=== PATIENT | female | born 1970 | race Caucasian/White ===

== ENCOUNTER 2019-08-24 09:17 | Outpatient (CLI) | payer OTHER, SELFPAY ==
[2019-08-24 09:58] LABS: Basophils % 0.7 %; Eosinophils # 0.2 10^3/uL (0.0-0.8); Hematocrit 42.9 % (37.0-47.0); Hemoglobin 14.1 g/dL (11.5-15.3); Lymphocytes # 0.9 10^3/uL (0.8-4.8); Lymphocytes % 14.3 %; Mean Corpuscular HGB Conc 32.9 g/dL (30.0-36.0); Mean Corpuscular Hemoglobin 30.4 pg (28.0-34.0); Mean Corpuscular Volume 92.5 fL (81-99); Mean Platelet Volume 9.5 fL (7.4-10.4); Monocytes # 0.7 10^3/uL (0.2-0.9); Monocytes % 11.8 %; Neutrophils # 4.3 10^3/uL (1.8-7.7); Neutrophils % 69.7 %; Nucleated Red Blood Cells % 0 %; Platelet Count 282 10^3/cmm (130-400); Red Blood Count 4.64 10^6/uL (4.1-5.3); Red Cell Distribution Width 12.9 % (12.1-15.1); White Blood Count 6.1 10^3/uL (4.0-10.0)
[2019-08-24 11:06] LABS: Alanine Aminotransferase 33 U/L (0-33); Albumin Level 3.8 g/dL (3.5-5.2); Alkaline Phosphatase 215 IU/L (35-105); Anion Gap 17.9 (5-19); Aspartate Amino Transferase 34 U/L (0-32); Blood Urea Nitrogen 9 mg/dL (6-20); Calcium 10.3 mg/Dl (8.6-10.0); Carbon Dioxide 27 mmol/L (22-29); Chloride 97 mmol/L (98-107); Globulin 3.3 g/dL (1.3-4.6); Glomerular Filtration Rate 132.2 mL/min (90-130); Glucose 101 mg/dL (74-109); Potassium 3.9 mmol/L (3.5-5.1); Sodium 138 mmol/L (136-145); Total Bilirubin 0.3 mg/dL (0.15-1.2); Total Protein 7.1 g/dL (6.6-8.7)
--- NOTE | 2019-08-27 09:04 | ONC FU_ITS ---
Dr. Holt Patient Follow-Up Note Patient: Stefania Teresa Unit #: [id number]: 1970 Dicatated By: Kevon Holt M.D.Date of Visit:Aug 24, 2019 Onc Med Follow-up/Prog Note Chief Complaint: Cholangiocarcinoma. History of Present Illness: This is a 49 year-old woman with hilar cholangiocarcinoma, stage DARRICK (T3, N1, M0). She had presented with obstructive jaundice. Her CT abdomen/pelvis on 05/01/2018 showed intrahepatic ductal dilatation with contracted gallbladder containing stones. ERCP on 05/05/2018 showed evidence of stricture in the upper third of the main bile duct. At that time she underwent sphincterotomy with stenting of the main and pancreatic duct. Brushings were atypical. On a ERCP on 05/21/2018 the brushings were positive for adenocarcinoma. EUS with lymph node biopsy on 06/07/2018 showed extrahepatic disease involving 1 lymph node, which precluded transplant. Her repeat CT abdomen/pelvis on 06/15/2018 showed ill-defined soft tissue mass centered at the origin of the left intrahepatic ductal system with predominantly left intrahepatic biliary ductal dilatation. There was a suggestion of extension of soft tissue into the proximal right intrahepatic ductal system as well as the extreme proximal aspect of the common duct. There was encasement of the left portal vein with at least abutment and narrowing of the proximal right portal vein and distal aspect of the main portal vein. There was likely short segment abutment of the right hepatic artery adjacent to the level of the greatest left portal vein narrowing in the hilum. On 06/28/2018 she underwent extended left hepatectomy with resection of the extrahepatic biliary tree and portal lymphadenectomy, portal vein resection and reconstruction of the right portal venous system, and Ariella-en-Y hepaticojejunostomy to multiple right-sided ducts. At surgery she was noted have a firm mass predominantly in the left side of the liver. By intraoperative ultrasound the tumor appeared resectable, though it was noted to directly abut the portal vein bifurcation. Also noted were several firm retroportal lymph nodes which were resected with the lymphadenectomy. The ultrasound showed no evidence of other metastatic sites within the liver. Pathology showed invasive moderately differentiated adenocarcinoma predominantly involving the left hepatic duct with adjacent hepatic parenchyma, including involvement of the caudate lobe and with extension to the hilum, soft tissue around the bile duct, and common hepatic duct. Tumor was involving the left portal vein. There was extensive lymphovascular and perineural invasion present. The cauterized parenchymal margin at the caudate lobe and the cauterized radial margin around the extrahepatic portion of the bile duct were involved. There was involvement in 1 of 6 lymph nodes. I had seen her initially on 07/21/2018 in regard to postoperative adjuvant chemotherapy. Based on NCCN guidelines I had recommended a course of treatment with gemcitabine/Xeloda. At that time she was still recovering from surgery, and her treatment was delayed pending approval from her surgeon. She returned to start her 1st cycle treatment on 08/24/2018. She completed her day 1 and day 8 gemcitabine infusions with no adverse effects. She was seen for a follow-up visit on 09/14/2018. She had not experienced any significant chemotherapy related toxicity, and she proceeded with her 2nd cycle of treatment, which she also tolerated well. She was then seen for a scheduled visit on 10/05/2018. At that point we had received the results of her next generation sequencing study, which showed evidence of a BRCA1 mutation. With that finding, I opted to change her chemotherapy to a [place]-containing regimen. She returned on 10/21/2018 for her 1st cycle of cisplatin/gemcitabine, administered on a day 1/day 8 schedule every 21 days. She was able to tolerate it with acceptable toxicity, and she continued with cycle 2 on 11/10/2018, with cycle 3 on 12/01/2018, and with cycle 4 on 12/22/2018. On 02/08/2019 she began consolidation radiation concurrently with Xeloda for chemosensitization. She completed radiation on 03/21/2019 to a total dose of 5400 cGy. She was then followed on observation/expectant management. Her medical history is otherwise significant for anxiety/depression, but no other medical illnesses. She has a history of smoking 1 pack of cigarettes daily for 20 years. She quit smoking in June 2018. Family history is significant for a paternal aunt having had breast cancer. INTERIM HISTORY: Surveillance CT of the abdomen/pelvis on 06/01/2019 showed uncomplicated postoperative changes of left hepatectomy and biliary enteric anastomosis. There were 2 foci of subcapsular decreased enhancement in the right lobe of the liver, 1 located anteriorly and the other laterally. These were felt to be consistent with cysts measuring 1 cm and 0.7 cm, and the appearance was unchanged compared to the January 2019 CTRP. She is seen for a scheduled visit. She has been feeling good generally. She has good energy, and her activity back to normal. ECOG score is 0. She has good appetite. She has gained some weight. She has no fever or night sweats. She has occasional hot flashes. She has no shortness of breath, cough, or chest pain. She currently has no GI or complaints. She has no significant joint or bone pain. She has no focal neurologic symptoms. She has had recurrence of depression since she stopped taking citalopram. She also has having some difficulty sleeping. Medications: She is currently not on any prescription medication. Allergies: No Known Allergies. Review of Systems: Constitutional - Her energy is good, and she has normal acitivty. Her appetite is good. She has gained weight. No fever or night sweats. She has occasional hot flashes. ECOG score is 0, ENMT - No sinus congestion/drainage. No mouth sores. No sore throat or difficulty swallowing, Hematologic/Lymphatic - No abnormal bruising or bleeding, Respiratory - No shortness of breath. No cough. No pleuritic pain or hemoptysis, Cardiovascular - No angina pain. No palpitations, Gastrointestinal - No nausea or vomiting. No heartburn or acid reflux. No diarrhea or constipation. No blood in the stool or black stools, Genitourinary (F) - No dysuria or hematuria. No urinary frequency. No urgency or incontinence, Musculoskeletal - No joint or bone pain, Integumentary - No skin complications, Neurologic - No headache or dizziness. No numbness/paresthesias or other focal neurologic symptoms, Psychiatric - She has been having some depression since stopping citalopram. She also is having difficulty sleeping. Vital Signs: Performed on Aug 24, 2019 10:34 Height - 66.00 in Weight - 215.8 lbs (HIGH) BSA - 2.07 sq.m BMI - 34.83 (HIGH) Temperature - 97.8 F (LOW) Pulse - 87 /min Respiration - 24 /min BP - 119/68 mm(hg) O2 Sat - 96 % Pain - 0 Physical Examination: Constitutional - She looks good generally, Eyes - Sclerae nonicteric. Conjunctivae clear, ENMT - No lesions noted in the oral cavity, Hematologic/Lymphatic - No cervical, clavicular, or axillary adenopathy, Respiratory - Lungs are clear with good air movement bilaterally, Cardiovascular - Heart rhythm is regular. There is no murmur, gallop, or rub noted, Abdomen - Soft. Liver and spleen are not enlarged. There is no abdominal mass or ascites noted and there is no inguinal adenopathy, Extremities - No edema, Neurologic - No focal neurologic deficits noted. Lab/Imaging: Test performed on Aug 24, 2019 09:30 Sodium 138 mmol/L Potassium 3.9 mmol/L Chloride 97 mmol/L CO2 27 mmol/L Anion Gap 17.9 BUN 9 mg/dL Creatinine 0.5 mg/dL Cr Clearance (Est) 199.8000 mL/min eGFR 132.2 mL/min Glucose 101 mg/dL Calcium 10.3 mg/Dl Protein, Total 7.1 g/dL Albumin 3.8 g/dL Globulin 3.3 g/dL Bilirubin, Total 0.3 mg/dL ALT (SGPT) 33 U/L AST (SGOT) 34 U/L WBC 6.1 10 3/uL RBC 4.64 10 6/uL HGB 14.1 g/dL HCT 42.9 % MCV 92.5 fL MCH 30.4 pg MCHC 32.9 g/dL RDW 12.9 % Platelet Count 282 10 3/cmm MPV 9.5 fL Neutrophils 4.3 10 3/uL Lymphocytes 0.9 10 3/uL Monocytes 0.7 10 3/uL Eosinophils 0.2 10 3/uL Basophils 0.0 10 3/uL Neutrophil % 69.7 % Lymphocyte % 14.3 % Monocyte % 11.8 % Eosinophil % 3.0 % Basophils % 0.7 % Impression: 1. Patient with hilar cholangiocarcinoma, stage DARRICK (T3, N1, M0). 2. She underwent extended left hepatectomy with resection of the extrahepatic biliary tree and portal lymphadenectomy, portal vein resection and reconstruction of the right portal venous system, and Ariella-en-Y hepaticojejunostomy to multiple right-sided ducts on 06/28/2018. Surgical pathology showed involvement in one lymph node and positive surgical margin. 3. She had situational anxiety/depression. She began postoperative adjuvant chemotherapy with gemcitabine/Xeloda in August 2018. She completed 2 cycles of treatment no adverse effects. We had then received results of her next generation sequencing study, which showed evidence of a BRCA1 mutation. With that finding, I opted to change her chemotherapy to a [place]-containing regimen. She started the 1st cycle on 10/21/2018. It was administered on day 1/day 8 schedule. She did receive Neulasta following her day 8 treatment. She had some increase in fatigue and nausea with the cisplatin-based regimen, and she also had some mild bone pain following the Neulasta injection. Overall, she tolerated it with acceptable toxicity, and she continued with cycle 2 on 11/10/2018, with cycle 3 on 12/01/2018, and with cycle 4 on 12/22/2018. She had significant weakness/fatigue for 2 or 3 days following her day 1 treatments. Side effects otherwise were limited to mild fatigue and mild nausea. Overall, she tolerated the chemotherapy with acceptable toxicity. She then underwent consolidation radiation concurrently with Xeloda for chemosensitization. She completed radiation on 03/21/2019 to a total dose of 5400 cGy. She was significantly fatigued following the radiation, but she otherwise tolerated it well. During followup she has had a persistnently elevated alkaline phosphatase, which I have suspected to be related effects of the radiation. She has otherwise been doing well clinically with no evidence of recurrence of the cholangiocarcinoma. Plan: She will continue on observation/expectant management. She will be scheduled for a follow-up with a surveillance CT in 3 months. Signed By: Kevon Holt M.D. <<Signature on File>>
== END 2019-08-24 09:18 | disposition home or self-care (01) ==
LOC: ONCMED 09:21
PROVIDERS: Family Provider Emergency Medicine; PCP Emergency Medicine; Visit Provider Internal Medicine Medical Oncology
DX: Z08 Encounter for follow-up examination after completed treatment for malignant neoplasm (principal); Z85.05 Personal history of malignant neoplasm of liver; F51.01 Primary insomnia; F41.8 Other specified anxiety disorders; Z92.21 Personal history of antineoplastic chemotherapy; Z92.3 Personal history of irradiation
CPT/HCPCS: 36415; 80053; 85025; G0463

== ENCOUNTER 2019-11-24 10:15 | Outpatient (CLI) | payer OTHER, SELFPAY ==
[2019-11-24 15:01] LABS: Alanine Aminotransferase 40 U/L (0-33); Albumin Level 4.4 g/dL (3.5-5.2); Alkaline Phosphatase 213 IU/L (35-105); Aspartate Amino Transferase 36 U/L (0-32); Blood Urea Nitrogen 8 mg/dL (6-20); Carbon Dioxide 28 mmol/L (22-29); Chloride 96 mmol/L (98-107); Globulin 3.4 g/dL (1.3-4.6); Glomerular Filtration Rate 107.2 mL/min (90-130); Glucose 149 mg/dL (65-115); Osmolality Calculated 285 mOsm/kg (285-295); Sodium 138 mmol/L (136-145); Total Bilirubin 0.3 mg/dL (0.15-1.2); Total Protein 7.8 g/dL (6.6-8.7)
[2019-11-24 15:05] LABS: Basophils # 0.1 10^3/uL (0.0-0.1); Basophils % 0.8 %; Eosinophils # 0.2 10^3/uL (0.0-0.8); Eosinophils % 2.3 %; Hematocrit 45.2 % (37.0-47.0); Hemoglobin 14.5 g/dL (11.5-15.3); Lymphocytes # 1.1 10^3/uL (0.8-4.8); Lymphocytes % 17.1 %; Mean Corpuscular HGB Conc 32.1 g/dL (30.0-36.0); Mean Corpuscular Hemoglobin 29.7 pg (28.0-34.0); Mean Corpuscular Volume 92.6 fL (81-99); Mean Platelet Volume 9.9 fL (7.4-10.4); Monocytes # 0.7 10^3/uL (0.2-0.9); Monocytes % 11.5 %; Neutrophils # 4.4 10^3/uL (1.8-7.7); Nucleated Red Blood Cells % 0 %; Platelet Count 305 10^3/cmm (130-400); Red Blood Count 4.88 10^6/uL (4.1-5.3); Red Cell Distribution Width 13.4 % (12.1-15.1); White Blood Count 6.4 10^3/uL (4.0-10.0)
== END 2019-11-24 10:16 | disposition home or self-care (01) ==
LOC: ONCMED 16:46
PROVIDERS: Family Provider Emergency Medicine; PCP Emergency Medicine; Visit Provider Internal Medicine Medical Oncology
DX: C22.1 Intrahepatic bile duct carcinoma (principal)
CPT/HCPCS: 36415; 80053; 85025

== ENCOUNTER 2020-05-30 12:43 | Outpatient (CLI) | payer OTHER, SELFPAY ==
[2020-05-30 13:52] LABS: Basophils # 0.1 10^3/uL (0.0-0.1); Basophils % 0.9 %; Eosinophils # 0.1 10^3/uL (0.0-0.8); Eosinophils % 1.6 %; Hematocrit 44.4 % (37.0-47.0); Hemoglobin 14.4 g/dL (11.5-15.3); Lymphocytes # 1.6 10^3/uL (0.8-4.8); Lymphocytes % 23.3 %; Mean Corpuscular HGB Conc 32.4 g/dL (30.0-36.0); Mean Corpuscular Hemoglobin 29.2 pg (28.0-34.0); Mean Corpuscular Volume 90.1 fL (81-99); Mean Platelet Volume 9.9 fL (7.4-10.4); Monocytes # 0.5 10^3/uL (0.2-0.9); Monocytes % 7.4 %; Neutrophils # 4.68 10^3/uL (1.8-7.7); Neutrophils % 66.5 %; Nucleated Red Blood Cells % 0 %; Platelet Count 294 10^3/cmm (130-400); Red Blood Count 4.93 10^6/uL (4.1-5.3); Red Cell Distribution Width 13.2 % (12.1-15.1)
[2020-05-30 14:11] LABS: Alanine Aminotransferase 34 U/L (0-33); Albumin Level 4.4 g/dL (3.5-5.2); Alkaline Phosphatase 168 IU/L (35-105); Anion Gap 12.7 (5-19); Aspartate Amino Transferase 27 U/L (0-32); Blood Urea Nitrogen 9 mg/dL (6-20); Calcium 9.5 mg/dL (8.5-10.5); Carbon Dioxide 29 mmol/L (22-29); Chloride 100 mmol/L (98-107); Globulin 3.1 g/dL (1.3-4.6); Glomerular Filtration Rate 89.3 mL/min (90-130); Glucose 120 mg/dL (65-115); Osmolality Calculated 286 mOsm/kg (285-295); Potassium 3.7 mmol/L (3.5-5.1); Sodium 138 mmol/L (136-145); Total Bilirubin 0.2 mg/dL (0.15-1.2); Total Protein 7.5 g/dL (6.6-8.7)
--- NOTE | 2020-05-31 07:55 | ONC FU_ITS ---
Dr. Holt Patient Follow-Up Note Patient: Stefania Teresa Unit #: [id number]: [id number] Dicatated By: Kevon Holt M.D.Date of Visit:May 30, 2020 Onc Med Follow-up/Prog Note Chief Complaint: Cholangiocarcinoma. History of Present Illness: This is a 50 year-old woman with hilar cholangiocarcinoma, stage DARRICK (T3, N1, M0). She had presented with obstructive jaundice. Her CT abdomen/pelvis on 05/01/2018 showed intrahepatic ductal dilatation with contracted gallbladder containing stones. ERCP on 05/05/2018 showed evidence of stricture in the upper third of the main bile duct. At that time she underwent sphincterotomy with stenting of the main and pancreatic duct. Brushings were atypical. On a ERCP on 05/21/2018 the brushings were positive for adenocarcinoma. EUS with lymph node biopsy on 06/07/2018 showed extrahepatic disease involving 1 lymph node, which precluded transplant. Her repeat CT abdomen/pelvis on 06/15/2018 showed ill-defined soft tissue mass centered at the origin of the left intrahepatic ductal system with predominantly left intrahepatic biliary ductal dilatation. There was a suggestion of extension of soft tissue into the proximal right intrahepatic ductal system as well as the extreme proximal aspect of the common duct. There was encasement of the left portal vein with at least abutment and narrowing of the proximal right portal vein and distal aspect of the main portal vein. There was likely short segment abutment of the right hepatic artery adjacent to the level of the greatest left portal vein narrowing in the hilum. On 06/28/2018 she underwent extended left hepatectomy with resection of the extrahepatic biliary tree and portal lymphadenectomy, portal vein resection and reconstruction of the right portal venous system, and Ariella-en-Y hepaticojejunostomy to multiple right-sided ducts. At surgery she was noted have a firm mass predominantly in the left side of the liver. By intraoperative ultrasound the tumor appeared resectable, though it was noted to directly abut the portal vein bifurcation. Also noted were several firm retroportal lymph nodes which were resected with the lymphadenectomy. The ultrasound showed no evidence of other metastatic sites within the liver. Pathology showed invasive moderately differentiated adenocarcinoma predominantly involving the left hepatic duct with adjacent hepatic parenchyma, including involvement of the caudate lobe and with extension to the hilum, soft tissue around the bile duct, and common hepatic duct. Tumor was involving the left portal vein. There was extensive lymphovascular and perineural invasion present. The cauterized parenchymal margin at the caudate lobe and the cauterized radial margin around the extrahepatic portion of the bile duct were involved. There was involvement in 1 of 6 lymph nodes. I had seen her initially on 07/21/2018 in regard to postoperative adjuvant chemotherapy. Based on NCCN guidelines I had recommended a course of treatment with gemcitabine/Xeloda. At that time she was still recovering from surgery, and her treatment was delayed pending approval from her surgeon. She returned to start her 1st cycle treatment on 08/24/2018, and she completed 2 cycles of treatment with no adverse effects. She was then seen for a scheduled visit on 10/05/2018. At that point we had received the results of her next generation sequencing study, which showed evidence of a BRCA1 mutation. With that finding, I opted to change her chemotherapy to a [place]-containing regimen. She returned on 10/21/2018 for her 1st cycle of cisplatin/gemcitabine, administered on a day 1/day 8 schedule every 21 days. She was able to tolerate it with acceptable toxicity, and she continued with cycle 2 on 11/10/2018, with cycle 3 on 12/01/2018, and with cycle 4 on 12/22/2018. On 02/08/2019 she began consolidation radiation concurrently with Xeloda for chemosensitization. She completed radiation on 03/21/2019 to a total dose of 5400 cGy. She was then followed on observation/expectant management. Her medical history is otherwise significant for anxiety/depression, but no other medical illnesses. She has a history of smoking 1 pack of cigarettes daily for 20 years. She quit smoking in June 2018. Family history is significant for a paternal aunt having had breast cancer. INTERIM HISTORY: Surveillance CT of the abdomen/pelvis on 06/01/2019 showed uncomplicated postoperative changes of left hepatectomy and biliary enteric anastomosis. There were 2 foci of subcapsular decreased enhancement in the right lobe of the liver, 1 located anteriorly and the other laterally. These were felt to be consistent with cysts measuring 1 cm and 0.7 cm, and the appearance was unchanged compared to the January 2019 CTRP. She continued observation/expectant management. She is seen for a followup visit. She has good energy and activity tolerance. Her ECOG score is 0. Her appetite is good and her weight is stable. She has no fever, night sweats, oar hot flashes. She has no shortness of breath, cough, or chest pain. She has no GI or complaints. She has no significant joint or bone pain. She does not complain of headache or dizziness. She has no focal neurologic symptoms. Her anxiety/depression has improved. She is no longer having to take medication for it. Medications: She is currently not on any prescription medication. Allergies: No Known Allergies. Review of Systems: Constitutional - She has good energy and activity tolerance. Appetite is good and weight is stable. No fever, night sweats, or hot flashes. ECOG score is 0, ENMT - No sinus congestion/drainage. No mouth sores. No sore throat or difficulty swallowing, Hematologic/Lymphatic - No abnormal bruising or bleeding, Respiratory - No shortness of breath. No cough. No pleuritic pain or hemoptysis, Cardiovascular - No angina pain. No palpitations, Gastrointestinal - No nausea or vomiting. No heartburn or acid reflux. No diarrhea or constipation. No blood in the stool or black stools, Genitourinary (F) - No dysuria or hematuria. No urinary frequency. No urgency or incontinence, Musculoskeletal - No joint or bone pain, Integumentary - No skin rash, Neurologic - No headache or dizziness. No numbness or tingling. No other focal neurologic symptoms, Psychiatric - Her anxiety/depression has improved. She is no longer taking medication for it. No insomnia. Vital Signs: Performed on May 30, 2020 14:33 Height - 66.00 in Weight - 230 lbs (HIGH) BSA - 2.12 sq.m BMI - 37.12 (HIGH) Temperature - 98.6 F Pulse - 87 /min Respiration - 17 /min BP - 107/67 mm(hg) O2 Sat - 97 % Pain - 0 Physical Examination: Constitutional - She looks good generally, Eyes - Sclerae nonicteric. Conjunctivae clear, ENMT - No lesions noted in the oral cavity, Hematologic/Lymphatic - No cervical, clavicular, or axillary adenopathy, Respiratory - Lungs are clear with good air movement bilaterally, Cardiovascular - Heart rhythm is regular. There is no murmur, gallop, or rub noted, Abdomen - Soft. Liver and spleen are not enlarged. There is no abdominal mass or ascites noted and there is no inguinal adenopathy, Extremities - No edema, Neurologic - No focal neurologic deficits noted. Lab/Imaging: Test performed on May 30, 2020 13:12 Sodium 138 mmol/L Potassium 3.7 mmol/L Chloride 100 mmol/L CO2 29 mmol/L Anion Gap 12.7 BUN 9 mg/dL Creatinine 0.7 mg/dL Cr Clearance (Est) 161.87 mL/min eGFR 89.3 mL/min Glucose 120 mg/dL Osmolality - Calculated 286 mOsm/kg Calcium 9.5 mg/dL Protein, Total 7.5 g/dL Albumin 4.4 g/dL Globulin 3.1 g/dL Bilirubin, Total 0.2 mg/dL ALT (SGPT) 34 U/L AST (SGOT) 27 U/L Alkaline Phosphatase 168 IU/L WBC 7.0 10 3/uL RBC 4.93 10 6/uL HGB 14.4 g/dL HCT 44.4 % MCV 90.1 fL MCH 29.2 pg MCHC 32.4 g/dL RDW 13.2 % Platelet Count 294 10 3/cmm MPV 9.9 fL Neutrophils 4.68 10 3/uL Lymphocytes 1.6 10 3/uL Monocytes 0.5 10 3/uL Eosinophils 0.1 10 3/uL Basophils 0.1 10 3/uL Neutrophil % 66.5 % Lymphocyte % 23.3 % Monocyte % 7.4 % Eosinophil % 1.6 % Basophils % 0.9 % NRBC % 0 % Impression: 1. Patient with hilar cholangiocarcinoma, stage DARRICK (T3, N1, M0). By next generation sequencing, her tumor was found to harbor a BRCA1 mutation. 2. She underwent extended left hepatectomy with resection of the extrahepatic biliary tree and portal lymphadenectomy, portal vein resection and reconstruction of the right portal venous system, and Ariella-en-Y hepaticojejunostomy to multiple right-sided ducts on 06/28/2018. Surgical pathology showed involvement in one lymph node and positive surgical margin. 3. She had situational anxiety/depression. 4. In August 2018 she began postoperative adjuvant chemotherapy with gemcitabine/Xeloda in August 2018. She completed 2 cycles of treatment no adverse effects. 5. We had then received results of her next generation sequencing study, which showed the BRCA1 mutation. With that finding, I opted to change her chemotherapy to a cisplatin-gemcitabine regimen. She completed 4 cycles of treatment between 10/21/2018 and 12/22/2018. 6. She then underwent consolidation radiation concurrently with Xeloda for chemosensitization. She completed radiation on 03/21/2019 to a total dose of 5400 cGy. She had become significantly fatigued but time she had completed the chemotherapy and the chemoradiation. During subsequent follow-up, she had persistent elevation of the liver enzymes, which I assumed were treatment related, and she had gradual improvement in her performance status. At this point she is doing very well clinically. She has just slight residual elevation of liver enzymes. Thus far there is no evidence of recurrence of the cholangiocarcinoma, but it has been a year since her last surveillance CT scan. Plan: She remains on observation/expectant management. She will be scheduled for surveillance CT abdomen/pelvis. I will see her again in 6 months. Signed By: Kevon Holt M.D. <<Signature on File>>
== END 2020-05-30 12:44 | disposition home or self-care (01) ==
LOC: ONCMED 12:47
PROVIDERS: PCP Emergency Medicine; Visit Provider Internal Medicine Medical Oncology
DX: Z08 Encounter for follow-up examination after completed treatment for malignant neoplasm (principal); Z85.09 Personal history of malignant neoplasm of other digestive organs; R74.8 Abnormal levels of other serum enzymes; Z90.49 Acquired absence of other specified parts of digestive tract; Z92.3 Personal history of irradiation; Z92.21 Personal history of antineoplastic chemotherapy
CPT/HCPCS: 36415; 80053; 85025; G0463

== ENCOUNTER 2020-06-07 13:11 | Outpatient (CLI) | payer OTHER, SELFPAY ==
--- NOTE | 2020-06-07 13:23 | CT_ITS ---
WS: [id number] CT scan of the abdomen and pelvis with Oral and IV contrast. Additional two-dimensional coronal and s agittal reconstruction was performed. 06/07/2020 Clinical Data: CHOLANGIOCARCINOMA Comparison: None. DLP: 1244.[address] scans at [facility] use at least one of these dose optimization techniques: automat ed exposure control; mA and/or kV adjustment per patient size (includes targeted exams where dose is matched to clinical indication); or iterative reconstruction. Findings: The lower lungs show no nodules, masses or effusions. There is a small hiatal hernia. The left lobe o f the liver has been resected along with the gallbladder. There is air in the hepatic biliary ductal system. There are small cysts in the right lobe of the liver unchanged. No evidence of any metastatic lesions in the liver can be seen. The spleen, adrenal glands and pancreas are normal. The kidneys show equal bilateral contrast excretion with no cyst or masses. No hydronephrosis or magali l calculi are seen. The abdominal aorta is normal in size. No appendicitis or diverticulitis is seen. Oral contrast is in the stomach, small bowel and colon, an d and there is no bowel dilatation. No abscess, adenopathy, ascites, mass, obstruction or free air is seen. The bladder is unremarkable. The uterus is normal No inguinal hernia is seen. Bony metastatic lesions are seen. CT/CT abdomen pelvis w con* [id number] Impression: 1. Negative for metastatic disease to the liver. 2. Post left lobe resection of the liver with biliary enteric anastomosis uncha nged.
[2020-06-07] MEDS: iohexol 300 mg/mL 50 mL Btl PO (14:16)
[2020-06-07] MEDS: iohexol 300 mg/mL 100 mL Btl IV (15:37)
== END 2020-06-07 13:12 | disposition home or self-care (01) ==
LOC: RADWPI 13:15
PROVIDERS: PCP Emergency Medicine; Visit Provider Internal Medicine Medical Oncology
DX: C22.1 Intrahepatic bile duct carcinoma (principal); K63.89 Other specified diseases of intestine
CPT/HCPCS: 74177; Q9967

== ENCOUNTER 2020-11-29 12:13 | Outpatient (CLI) | payer OTHER, SELFPAY ==
[2020-11-29 13:09] LABS: Basophils # 0.1 10^3/uL (0.0-0.1); Basophils % 0.8 %; Eosinophils # 0.1 10^3/uL (0.0-0.8); Eosinophils % 1.1 %; Hematocrit 44.4 % (37.0-47.0); Hemoglobin 14.5 g/dL (11.5-15.3); Lymphocytes # 1.8 10^3/uL (0.8-4.8); Lymphocytes % 18.6 %; Mean Corpuscular HGB Conc 32.7 g/dL (30.0-36.0); Mean Corpuscular Hemoglobin 29.1 pg (28.0-34.0); Mean Platelet Volume 9.6 fL (7.4-10.4); Monocytes # 0.9 10^3/uL (0.2-0.9); Monocytes % 9.5 %; Neutrophils # 6.82 10^3/uL (1.8-7.7); Neutrophils % 69.6 %; Nucleated Red Blood Cells % 0 %; Platelet Count 306 10^3/cmm (130-400); Red Blood Count 4.99 10^6/uL (4.1-5.3); Red Cell Distribution Width 13.2 % (12.1-15.1); White Blood Count 9.8 10^3/uL (4.0-10.0)
[2020-11-29 13:35] LABS: Alanine Aminotransferase 18 U/L (0-33); Albumin Level 4.1 g/dL (3.5-5.2); Alkaline Phosphatase 142 IU/L (35-105); Anion Gap 14.1 (5-19); Aspartate Amino Transferase 21 U/L (0-32); Blood Urea Nitrogen 10 mg/dL (6-20); Calcium 9.1 mg/dL (8.5-10.5); Carbon Dioxide 26 mmol/L (22-29); Chloride 97 mmol/L (98-107); Globulin 3.1 g/dL (1.3-4.6); Glomerular Filtration Rate 89.3 mL/min (90-130); Glucose 93 mg/dL (65-115); Osmolality Calculated 275 mOsm/kg (285-295); Potassium 4.1 mmol/L (3.5-5.1); Sodium 133 mmol/L (136-145); Total Bilirubin 0.3 mg/dL (0.15-1.2); Total Protein 7.2 g/dL (6.6-8.7)
[2020-11-29 15:27] LABS: Add Urine Microscopic? NO; Charge for UA Resulting for Rev
[2020-11-29 15:57] LABS: Bilirubin Urine Neg (Negative); Blood Urine Neg (Negative); Glucose Urine UA Norm (Normal); Ketones Urine Negative (Negative); Leukocyte Esterase Urine Negative (Negative); Nitrate Urine Negative (Negative); Protein Urine Neg (Negative); Urine Appearance Clear (CLEAR); Urine Color Straw (Yellow); Urobilinogen Urine Norm (Negative); pH Urine 5 (5-7)
[2020-11-30 12:24] LABS: Thyroid Stimulating Hormone 1.54 uIU/mL (0.27-4.20)
--- NOTE | 2020-11-30 17:46 | ONC FU_ITS ---
Dr. Holt Patient Follow-Up Note Patient: Stefania Teresa Unit #: [id number]: 1970 Dicatated By: Kevon Holt M.D.Date of Visit:Nov 29, 2020 Onc Med Follow-up/Prog Note Chief Complaint: Cholangiocarcinoma. History of Present Illness: This is a 50 year-old woman with hilar cholangiocarcinoma, stage DARRICK (T3, N1, M0). She had presented with obstructive jaundice. Her CT abdomen/pelvis on 05/01/2018 showed intrahepatic ductal dilatation with contracted gallbladder containing stones. ERCP on 05/05/2018 showed evidence of stricture in the upper third of the main bile duct. At that time she underwent sphincterotomy with stenting of the main and pancreatic duct. Brushings were atypical. On a ERCP on 05/21/2018 the brushings were positive for adenocarcinoma. EUS with lymph node biopsy on 06/07/2018 showed extrahepatic disease involving 1 lymph node, which precluded transplant. Her repeat CT abdomen/pelvis on 06/15/2018 showed ill-defined soft tissue mass centered at the origin of the left intrahepatic ductal system with predominantly left intrahepatic biliary ductal dilatation. There was a suggestion of extension of soft tissue into the proximal right intrahepatic ductal system as well as the extreme proximal aspect of the common duct. There was encasement of the left portal vein with at least abutment and narrowing of the proximal right portal vein and distal aspect of the main portal vein. There was likely short segment abutment of the right hepatic artery adjacent to the level of the greatest left portal vein narrowing in the hilum. On 06/28/2018 she underwent extended left hepatectomy with resection of the extrahepatic biliary tree and portal lymphadenectomy, portal vein resection and reconstruction of the right portal venous system, and Ariella-en-Y hepaticojejunostomy to multiple right-sided ducts. At surgery she was noted have a firm mass predominantly in the left side of the liver. By intraoperative ultrasound the tumor appeared resectable, though it was noted to directly abut the portal vein bifurcation. Also noted were several firm retroportal lymph nodes which were resected with the lymphadenectomy. The ultrasound showed no evidence of other metastatic sites within the liver. Pathology showed invasive moderately differentiated adenocarcinoma predominantly involving the left hepatic duct with adjacent hepatic parenchyma, including involvement of the caudate lobe and with extension to the hilum, soft tissue around the bile duct, and common hepatic duct. Tumor was involving the left portal vein. There was extensive lymphovascular and perineural invasion present. The cauterized parenchymal margin at the caudate lobe and the cauterized radial margin around the extrahepatic portion of the bile duct were involved. There was involvement in 1 of 6 lymph nodes. I had seen her initially on 07/21/2018 in regard to postoperative adjuvant chemotherapy. Based on NCCN guidelines I had recommended a course of treatment with gemcitabine/Xeloda. At that time she was still recovering from surgery, and her treatment was delayed pending approval from her surgeon. She returned to start her 1st cycle treatment on 08/24/2018, and she completed 2 cycles of treatment with no adverse effects. She was then seen for a scheduled visit on 10/05/2018. At that point we had received the results of her next generation sequencing study, which showed evidence of a BRCA1 mutation. With that finding, I opted to change her chemotherapy to a alutiiq-containing regimen. She returned on 10/21/2018 for her 1st cycle of cisplatin/gemcitabine, administered on a day 1/day 8 schedule every 21 days. She was able to tolerate it with acceptable toxicity, and she continued with cycle 2 on 11/10/2018, with cycle 3 on 12/01/2018, and with cycle 4 on 12/22/2018. On 02/08/2019 she began consolidation radiation concurrently with Xeloda for chemosensitization. She completed radiation on 03/21/2019 to a total dose of 5400 cGy. She was then followed on observation/expectant management. Her medical history is otherwise significant for anxiety/depression, but no other medical illnesses. She has a history of smoking 1 pack of cigarettes daily for 20 years. She quit smoking in June 2018. Family history is significant for a paternal aunt having had breast cancer. INTERIM HISTORY: CT of the abdomen/pelvis on 06/01/2019 showed uncomplicated postoperative changes of left hepatectomy and biliary enteric anastomosis. There were 2 foci of subcapsular decreased enhancement in the right lobe of the liver, 1 located anteriorly and the other laterally. These were felt to be consistent with cysts measuring 1 cm and 0.7 cm, and the appearance was unchanged compared to the January [address] of the abdomen/pelvis on 06/07/2020 showed postoperative changes of left hepatic lobectomy. Small cyst in the right lobe of the liver appeared unchanged. Overall there was no evidence of recurrent or metastatic disease. She continued expectant management. She is seen for a followup visit. She has been feeling pretty good generally. Her main complaint is that she has been having pain, swelling, and stiffness in both hands. Tends to bother her especially at night, but also with activity. She also has some joint pain in the knees and ankles, though not as much. Recently she is also had some discomfort in the lower abdomen and some associated tenderness, mainly when she is lying on her stomach. She still has good energy and activity tolerance. ECOG score is 0. She has good appetite. She has not had fever. She does have hot flashes/sweating off and on. She has no shortness of breath, cough, or chest pain. She has no GI/ complaints other than some urinary frequency. She does not complain of headache or dizziness. She has no numbness/paresthesia or other neuropathy symptoms. Medications: She is currently not on any prescription medication. Allergies: No Known Allergies. Vital Signs: Performed on Nov 29, 2020 14:53 Height - 66.00 in Weight - 226.8 lbs (LOW) BSA - 2.11 sq.m BMI - 36.61 (HIGH) Temperature - 98.7 F Pulse - 99 /min Respiration - 18 /min BP - 116/85 mm(hg) O2 Sat - 97 % Pain - 0 Fatigue - 1 Physical Examination: Constitutional - She looks good generally, Eyes - Sclerae nonicteric. Conjunctivae clear, ENMT - No lesions noted in the oral cavity, Hematologic/Lymphatic - No cervical, clavicular, or axillary adenopathy, Respiratory - Lungs are clear with good air movement bilaterally, Cardiovascular - Heart rhythm is regular. There is no murmur, gallop, or rub noted, Abdomen - Soft. Liver and spleen are not enlarged. There is no abdominal mass or ascites noted and there is no inguinal adenopathy, Extremities - No edema, Neurologic - No focal neurologic deficits noted. Lab/Imaging: Test performed on Nov 29, 2020 12:55 TSH 1.54 uIU/mL Test performed on Nov 29, 2020 12:35 Sodium 133 mmol/L Potassium 4.1 mmol/L Chloride 97 mmol/L CO2 26 mmol/L Anion Gap 14.1 BUN 10 mg/dL Creatinine 0.7 mg/dL Cr Clearance (Est) 159.62 mL/min eGFR 89.3 mL/min Glucose 93 mg/dL Osmolality - Calculated 275 mOsm/kg Calcium 9.1 mg/dL Protein, Total 7.2 g/dL Albumin 4.1 g/dL Globulin 3.1 g/dL Bilirubin, Total 0.3 mg/dL ALT (SGPT) 18 U/L AST (SGOT) 21 U/L Alkaline Phosphatase 142 IU/L WBC 9.8 10 3/uL RBC 4.99 10 6/uL HGB 14.5 g/dL HCT 44.4 % MCV 89.0 fL MCH 29.1 pg MCHC 32.7 g/dL RDW 13.2 % Platelet Count 306 10 3/cmm MPV 9.6 fL Neutrophils 6.82 10 3/uL Lymphocytes 1.8 10 3/uL Monocytes 0.9 10 3/uL Eosinophils 0.1 10 3/uL Basophils 0.1 10 3/uL Neutrophil % 69.6 % Lymphocyte % 18.6 % Monocyte % 9.5 % Eosinophil % 1.1 % Basophils % 0.8 % NRBC % 0 % Problem List: 1. Patient with hilar cholangiocarcinoma, stage DARRICK (T3, N1, M0). By next generation sequencing, her tumor was found to harbor a BRCA1 mutation. She underwent extended left hepatectomy with resection of the extrahepatic biliary tree and portal lymphadenectomy, portal vein resection and reconstruction of the right portal venous system, and Ariella-en-Y hepaticojejunostomy to multiple right-sided ducts on 06/28/2018. Surgical pathology showed involvement in one lymph node and positive surgical margin. 2. She has anxiety/depression, currently not requiring medication. Problems Addressed with this Encounter and Plan: 1. Patient with hilar cholangiocarcinoma, stage DARRICK (T3, N1, M0). By next generation sequencing, her tumor was found to harbor a BRCA1 mutation. She underwent extended left hepatectomy with resection of the extrahepatic biliary tree and portal lymphadenectomy, portal vein resection and reconstruction of the right portal venous system, and Ariella-en-Y hepaticojejunostomy to multiple right-sided ducts on 06/28/2018. Surgical pathology showed involvement in one lymph node and positive surgical margin. In August 2018 she began postoperative adjuvant chemotherapy with gemcitabine/Xeloda in August 2018. She completed 2 cycles of treatment no adverse effects. We had then received results of her next generation sequencing study, which showed the BRCA1 mutation. With that finding, I opted to change her chemotherapy to a cisplatin-gemcitabine regimen. She completed 4 cycles of treatment between 10/21/2018 and 12/22/2018. She then underwent consolidation radiation concurrently with Xeloda for chemosensitization. She completed radiation on 03/21/2019 to a total dose of 5400 cGy. She was then followed expectantly. During initial follow-up she has developed a significant increase in her liver enzymes. This was felt to be most likely radiation related and during subsequent follow-up and has continued to gradually improve. Overall, she has been doing well clinically with no evidence of recurrence of the cholangiocarcinoma. Recently she has developed some mild discomfort in the lower abdominal area. The cause/clinical significance is uncertain. I will tentatively plan a follow-up visit with surveillance CT scans in 6 months, but she will have evaluation sooner if her symptoms worsen. 2. She has developed some joint pain with stiffness and swelling in both hands. As a precaution I will check a sed rate, but this appears to be most likely due to osteoarthritis. She will be given a prescription for meloxicam 15 mg daily. I also recommended that she try glucosamine/chondroitin sulfate. Signed By: Kevon Holt M.D. <<Signature on File>>
== END 2020-11-29 12:14 | disposition home or self-care (01) ==
LOC: ONCMED 12:17
PROVIDERS: PCP Emergency Medicine; Visit Provider Internal Medicine Medical Oncology
DX: C22.1 Intrahepatic bile duct carcinoma (principal); C77.1 Secondary and unspecified malignant neoplasm of intrathoracic lymph nodes; F41.9 Anxiety disorder, unspecified; F32.9 Major depressive disorder, single episode, unspecified; Z79.899 Other long term (current) drug therapy; Z92.21 Personal history of antineoplastic chemotherapy; Z92.3 Personal history of irradiation
CPT/HCPCS: 36415; 80053; 81003; 84443; 85025; 99214

== ENCOUNTER 2021-06-06 11:57 | Outpatient (CLI) | payer OTHER, SELFPAY ==
[2021-06-06 13:08] LABS: Basophils # 0.1 10^3/uL (0.0-0.1); Basophils % 0.6 %; Eosinophils # 0.2 10^3/uL (0.0-0.8); Eosinophils % 1.5 %; Hematocrit 35.1 % (37.0-47.0); Hemoglobin 10.6 g/dL (11.5-15.3); Lymphocytes # 1.1 10^3/uL (0.8-4.8); Lymphocytes % 8.3 %; Mean Corpuscular HGB Conc 30.2 g/dL (30.0-36.0); Mean Corpuscular Hemoglobin 26.6 pg (28.0-34.0); Mean Platelet Volume 9.4 fL (7.4-10.4); Monocytes # 1.1 10^3/uL (0.2-0.9); Neutrophils # 9.99 10^3/uL (1.8-7.7); Neutrophils % 78.7 %; Nucleated Red Blood Cells % 0 %; Platelet Count 696 10^3/cmm (130-400); Red Blood Count 3.99 10^6/uL (4.1-5.3); Red Cell Distribution Width 15.3 % (12.1-15.1); White Blood Count 12.7 10^3/uL (4.0-10.0)
[2021-06-06 13:31] LABS: Alanine Aminotransferase 14 U/L (0-33); Albumin Level 2.8 g/dL (3.5-5.2); Alkaline Phosphatase 118 IU/L (35-105); Anion Gap 15.6 (5-19); Aspartate Amino Transferase 21 U/L (0-32); Blood Urea Nitrogen 9 mg/dL (6-20); Calcium 9.2 mg/dL (8.5-10.5); Carbon Dioxide 27 mmol/L (22-29); Chloride 96 mmol/L (98-107); Globulin 4.2 g/dL (1.3-4.6); Glomerular Filtration Rate 236.4 mL/min (90-130); Glucose 160 mg/dL (65-115); Osmolality Calculated 280 mOsm/kg (285-295); Potassium 4.6 mmol/L (3.5-5.1); Sodium 134 mmol/L (136-145); Total Bilirubin 0.3 mg/dL (0.15-1.2)
--- NOTE | 2021-06-06 18:23 | ONC FU_ITS ---
Dr. Holt Patient Follow-Up Note Patient: Stefania Teresa Unit #: [id number]: 1970 Dicatated By: Kevon Holt M.D.Date of Visit:Jun 06, 2021 Onc Med Follow-up/Prog Note Chief Complaint: Cholangiocarcinoma. History of Present Illness: This is a 51 year-old woman with hilar cholangiocarcinoma, stage DARRICK (T3, N1, M0). She had presented with obstructive jaundice. Her CT abdomen/pelvis on 05/01/2018 showed intrahepatic ductal dilatation with contracted gallbladder containing stones. ERCP on 05/05/2018 showed evidence of stricture in the upper third of the main bile duct. At that time she underwent sphincterotomy with stenting of the main and pancreatic duct. Brushings were atypical. On a ERCP on 05/21/2018 the brushings were positive for adenocarcinoma. EUS with lymph node biopsy on 06/07/2018 showed extrahepatic disease involving 1 lymph node, which precluded transplant. Her repeat CT abdomen/pelvis on 06/15/2018 showed ill-defined soft tissue mass centered at the origin of the left intrahepatic ductal system with predominantly left intrahepatic biliary ductal dilatation. There was a suggestion of extension of soft tissue into the proximal right intrahepatic ductal system as well as the extreme proximal aspect of the common duct. There was encasement of the left portal vein with at least abutment and narrowing of the proximal right portal vein and distal aspect of the main portal vein. There was likely short segment abutment of the right hepatic artery adjacent to the level of the greatest left portal vein narrowing in the hilum. On 06/28/2018 she underwent extended left hepatectomy with resection of the extrahepatic biliary tree and portal lymphadenectomy, portal vein resection and reconstruction of the right portal venous system, and Ariella-en-Y hepaticojejunostomy to multiple right-sided ducts. At surgery she was noted have a firm mass predominantly in the left side of the liver. By intraoperative ultrasound the tumor appeared resectable, though it was noted to directly abut the portal vein bifurcation. Also noted were several firm retroportal lymph nodes which were resected with the lymphadenectomy. The ultrasound showed no evidence of other metastatic sites within the liver. Pathology showed invasive moderately differentiated adenocarcinoma predominantly involving the left hepatic duct with adjacent hepatic parenchyma, including involvement of the caudate lobe and with extension to the hilum, soft tissue around the bile duct, and common hepatic duct. Tumor was involving the left portal vein. There was extensive lymphovascular and perineural invasion present. The cauterized parenchymal margin at the caudate lobe and the cauterized radial margin around the extrahepatic portion of the bile duct were involved. There was involvement in 1 of 6 lymph nodes. I had seen her initially on 07/21/2018 in regard to postoperative adjuvant chemotherapy. Based on NCCN guidelines I had recommended a course of treatment with gemcitabine/Xeloda. At that time she was still recovering from surgery, and her treatment was delayed pending approval from her surgeon. She returned to start her 1st cycle treatment on 08/24/2018, and she completed 2 cycles of treatment with no adverse effects. She was then seen for a scheduled visit on 10/05/2018. At that point we had received the results of her next generation sequencing study, which showed evidence of a BRCA1 mutation. With that finding, I opted to change her chemotherapy to a marshall-containing regimen. She returned on 10/21/2018 for her 1st cycle of cisplatin/gemcitabine, administered on a day 1/day 8 schedule every 21 days. She was able to tolerate it with acceptable toxicity, and she continued with cycle 2 on 11/10/2018, with cycle 3 on 12/01/2018, and with cycle 4 on 12/22/2018. On 02/08/2019 she began consolidation radiation concurrently with Xeloda for chemosensitization. She completed radiation on 03/21/2019 to a total dose of 5400 cGy. She was then managed expectantly. During that time, I had requested genetic screening, but it was denied by her insurance carrier. As of her follow-up visit in June 2020 she was doing well clinically. Her surveillance CT of the abdomen/pelvis showed postoperative changes of left hepatic lobectomy. Small cyst in the right lobe of the liver appeared unchanged. Overall there was no evidence of recurrent or metastatic disease. Her medical history is otherwise significant for anxiety/depression, but no other medical illnesses. She has a history of smoking 1 pack of cigarettes daily for 20 years. She quit smoking in June 2018. Family history is significant for a paternal aunt having had breast cancer. INTERIM HISTORY: Last month she was referred to Dr. Perla in [place] after she had been found on CT to have a large pelvic mass. I do not have all of those records available, but on 05/17/2021 she underwent exploratory laparotomy for radical surgical resection of suspected ovarian cancer. The procedure included bilateral salpingo-oophorectomy, total abdominal hysterectomy, partial sigmoid colectomy, omentectomy, appendectomy, and excision of multiple tumor nodules. Grossly she was noted to have a multicystic mass with a large friable area of necrosis on the surface. There was involvement by attachment to multiple loops of small bowel and mesentery and peritoneal surface in the pelvis. Some of the multi cysts were ruptured with removal. Other sites of involvement included the bladder peritoneum, right anterior abdominal wall, surface disease on the sigmoid colon as well as plaque-like nodule in the sigmoid colon which was suspicious for infiltration into the muscularis. There were nodules along the left pericolic gutter, sigmoid colon, right pericolic gutter, sigmoid mesentery, right pelvic peritoneum, and right anterior abdominal wall peritoneum. The omentum also appeared very suspicious. Pathology showed adenocarcinoma involving virtually all of the submitted specimens, including both ovaries, omentum, appendix, sigmoid colon serosa, bladder peritoneum, right pelvic and right abdominal wall peritoneum, anterior abdominal wall, and numerous other nodules. Grossly the right ovary measured 27.5 x 26 x 16 cm and the left ovary measured 10.5 x 9 x 7 cm. By IHC the tumor is of the appendix and ovary were positive for CK7, CK20, and CDX2. They were negative for PAX8 and ER. It was unclear whether this was primary appendiceal carcinoma with ovarian metastases or vice versa. Pathology was sent to Dr. Alex Medina at [facility] for review/consultation, and that report is still pending. She is seen for a follow-up visit. She still has very limited activity following her recent surgery. She still feels very fatigued. Her ECOG score is 3. Her appetite is not good. She has been supplementing with Ensure. She has not had fever. She was having some hot flashes/sweating in the hospital, that has resolved. She has not had sore mouth or throat. She does not complain of cough, and she has not been having shortness of breath or chest pain. She still has some soreness following the surgery, but she is not having nausea or acid reflux symptoms. Her bowels are recovering slowly. She has no complaints. She has no significant joint or bone pain. She does not complain of headache or dizziness. She has no numbness/paresthesia or other focal neurologic symptoms. Medications: traMADol HCl 1 Tablet (of 50 mg) Oral b.i.d. PRN Allergies: No Known Allergies. Vital Signs: Performed on Jun 06, 2021 13:58 Height - 66.00 in Weight - 184.6 lbs (LOW) BSA - 1.93 sq.m BMI - 29.80 Temperature - 97.1 F (LOW) Pulse - 120 /min (HIGH) Respiration - 18 /min BP - 116/80 mm(hg) O2 Sat - 97 % Pain - 2 Fatigue - 8 Physical Examination: Constitutional - She appears generally weak, Eyes - Sclerae nonicteric. Conjunctivae clear, ENMT - No lesions noted in the oral cavity, Hematologic/Lymphatic - No cervical, clavicular, or axillary adenopathy, Respiratory - Lungs are clear with good air movement bilaterally, Cardiovascular - Heart rhythm is regular. There is no murmur, gallop, or rub noted, Abdomen - Mildly distended but soft. The incision has not completely healed, but it looks good. Liver and spleen are not enlarged. There is no abdominal mass or ascites noted and there is no inguinal adenopathy, Extremities - No edema, Neurologic - No focal neurologic deficits noted. Lab/Imaging: Test performed on Jun 06, 2021 12:35 Sodium 134 mmol/L Potassium 4.6 mmol/L Chloride 96 mmol/L CO2 27 mmol/L Anion Gap 15.6 BUN 9 mg/dL Creatinine 0.3 mg/dL Cr Clearance (Est) 299.86 mL/min eGFR 236.4 mL/min Glucose 160 mg/dL Osmolality - Calculated 280 mOsm/kg Calcium 9.2 mg/dL Protein, Total 7.0 g/dL Albumin 2.8 g/dL Globulin 4.2 g/dL Bilirubin, Total 0.3 mg/dL ALT (SGPT) 14 U/L AST (SGOT) 21 U/L Alkaline Phosphatase 118 IU/L WBC 12.7 10 3/uL RBC 3.99 10 6/uL HGB 10.6 g/dL HCT 35.1 % MCV 88.0 fl MCH 26.6 pg MCHC 30.2 g/dL RDW 15.3 % Platelet Count 696 10 3/cmm MPV 9.4 fL Neutrophils 9.99 10 3/uL Lymphocytes 1.1 10 3/uL Monocytes 1.1 10 3/uL Eosinophils 0.2 10 3/uL Basophils 0.1 10 3/uL Neutrophil % 78.7 % Lymphocyte % 8.3 % Monocyte % 9.0 % Eosinophil % 1.5 % Basophils % 0.6 % NRBC % 0 % Problem List: 1. Locally advanced adenocarcinoma involving abdomen/pelvis with involvement of both ovaries and appendix. It is not yet determined whether this is primary appendiceal cancer or primary ovarian cancer. 2. Hilar cholangiocarcinoma, stage DARRICK (T3, N1, M0). By next generation sequencing, her tumor was found to harbor a BRCA1 mutation. 3. Anxiety/depression. Problems Addressed with this Encounter and Plan: 1. Patient with locally advanced adenocarcinoma involving abdomen/pelvis. She underwent laparotomy/radical surgical resection on 05/17/2021. There are multiple sites of involvement within the abdomen and pelvis including both ovaries and appendix. It has not yet been determined where this is primary appendiceal versus primary ovarian carcinoma, but further pathologic review is pending. She may require adjuvant therapy depending on the ultimate determination of the primary malignancy. In any case, I think it will be appropriate to obtain next generation sequencing, and I will submit that request to pathology. I will be conferring with Dr. Baca regarding her further management when the final pathology results are available. 2. She has history of hilar cholangiocarcinoma, stage DARRICK (T3, N1, M0). She underwent extended left hepatectomy with resection of the extrahepatic biliary tree and portal lymphadenectomy, portal vein resection and reconstruction of the right portal venous system, and Ariella-en-Y hepaticojejunostomy to multiple right-sided ducts on 06/28/2018. Surgical pathology showed involvement in one lymph node and positive surgical margin. By next generation sequencing, her tumor was found to harbor a BRCA1 mutation. In August 2018 she began postoperative adjuvant chemotherapy with gemcitabine/Xeloda in August 2018. She completed 2 cycles of treatment no adverse effects. We had then received results of her next generation sequencing study, which showed the BRCA1 mutation. With that finding, I opted to change her chemotherapy to a cisplatin-gemcitabine regimen. She completed 4 cycles of treatment between 10/21/2018 and 12/22/2018. She then underwent consolidation radiation concurrently with Xeloda for chemosensitization. She completed radiation on 03/21/2019 to a total dose of 5400 cGy. She was then followed expectantly. Thus far there does not appear to been any recurrence of the cholangiocarcinoma. Signed By: Kevon Holt M.D. <<Signature on File>>
== END 2021-06-06 11:58 | disposition home or self-care (01) ==
PROVIDERS: PCP Emergency Medicine; Visit Provider Internal Medicine Medical Oncology
DX: Z08 Encounter for follow-up examination after completed treatment for malignant neoplasm (principal); Z85.43 Personal history of malignant neoplasm of ovary; Z85.89 Personal history of malignant neoplasm of other organs and systems; F41.9 Anxiety disorder, unspecified; F32.9 Major depressive disorder, single episode, unspecified; Z92.21 Personal history of antineoplastic chemotherapy; Z79.899 Other long term (current) drug therapy
CPT/HCPCS: 36415; 80053; 85025; 99215

== ENCOUNTER 2021-08-12 10:14 | Outpatient (CLI) | payer OTHER, SELFPAY ==
--- NOTE | 2021-08-15 09:44 | ONC FU_ITS ---
Dr. Holt Patient Follow-Up Note Patient: Stefania Teresa Unit #: [id number]: 1970 Dicatated By: Kevon Holt M.D.Date of Visit:Aug 12, 2021 Onc Med Follow-up/Prog Note Chief Complaint: Cholangiocarcinoma/appendiceal cancer. 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 She had presented with obstructive jaundice. Her CT abdomen/pelvis on 05/01/2018 showed intrahepatic ductal dilatation with contracted gallbladder containing stones. ERCP on 05/05/2018 showed evidence of stricture in the upper third of the main bile duct. At that time she underwent sphincterotomy with stenting of the main and pancreatic duct. Brushings were atypical. On a ERCP on 05/21/2018 the brushings were positive for adenocarcinoma. EUS with lymph node biopsy on 06/07/2018 showed extrahepatic disease involving 1 lymph node, which precluded transplant. Her repeat CT abdomen/pelvis on 06/15/2018 showed ill-defined soft tissue mass centered at the origin of the left intrahepatic ductal system with predominantly left intrahepatic biliary ductal dilatation. There was a suggestion of extension of soft tissue into the proximal right intrahepatic ductal system as well as the extreme proximal aspect of the common duct. There was encasement of the left portal vein with at least abutment and narrowing of the proximal right portal vein and distal aspect of the main portal vein. There was likely short segment abutment of the right hepatic artery adjacent to the level of the greatest left portal vein narrowing in the hilum. On 06/28/2018 she underwent extended left hepatectomy with resection of the extrahepatic biliary tree and portal lymphadenectomy, portal vein resection and reconstruction of the right portal venous system, and Ariella-en-Y hepaticojejunostomy to multiple right-sided ducts. At surgery she was noted have a firm mass predominantly in the left side of the liver. By intraoperative ultrasound the tumor appeared resectable, though it was noted to directly abut the portal vein bifurcation. Also noted were several firm retroportal lymph nodes which were resected with the lymphadenectomy. The ultrasound showed no evidence of other metastatic sites within the liver. Pathology showed invasive moderately differentiated adenocarcinoma predominantly involving the left hepatic duct with adjacent hepatic parenchyma, including involvement of the caudate lobe and with extension to the hilum, soft tissue around the bile duct, and common hepatic duct. Tumor was involving the left portal vein. There was extensive lymphovascular and perineural invasion present. The cauterized parenchymal margin at the caudate lobe and the cauterized radial margin around the extrahepatic portion of the bile duct were involved. There was involvement in 1 of 6 lymph nodes. I had seen her initially on 07/21/2018 in regard to postoperative adjuvant chemotherapy. Based on NCCN guidelines I had recommended a course of treatment with gemcitabine/Xeloda. At that time she was still recovering from surgery, and her treatment was delayed pending approval from her surgeon. She returned to start her 1st cycle treatment on 08/24/2018, and she completed 2 cycles of treatment with no adverse effects. She was then seen for a scheduled visit on 10/05/2018. At that point we had received the results of her next generation sequencing study, which showed evidence of a BRCA1 mutation. With that finding, I opted to change her chemotherapy to a kwethluk-containing regimen. She returned on 10/21/2018 for her 1st cycle of cisplatin/gemcitabine, administered on a day 1/day 8 schedule every 21 days. She was able to tolerate it with acceptable toxicity, and she continued with cycle 2 on 11/10/2018, with cycle 3 on 12/01/2018, and with cycle 4 on 12/22/2018. On 02/08/2019 she began consolidation radiation concurrently with Xeloda for chemosensitization. She completed radiation on 03/21/2019 to a total dose of 5400 cGy. She was then managed expectantly. During that time, I had requested genetic screening, but it was denied by her insurance carrier. Her surveillance CT of the abdomen/pelvis in June 2020 showed postoperative changes of left hepatic lobectomy. Small cyst in the right lobe of the liver appeared unchanged. Overall there was no evidence of recurrent or metastatic disease. As of her follow-up visit on 11/29/2020 she appeared stable clinically. She was scheduled to have a 6-month interval follow-up with surveillance CT scans. In April 2020 she was referred to Dr. Perla in [place] after she had been found on CT to have a large pelvic mass. On 05/17/2021 she underwent exploratory laparotomy for radical surgical resection of suspected ovarian cancer. The procedure included bilateral salpingo-oophorectomy, total abdominal hysterectomy, partial sigmoid colectomy, omentectomy, appendectomy, and excision of multiple tumor nodules. Grossly she was noted to have a multicystic mass with a large friable area of necrosis on the surface. There was involvement by attachment to multiple loops of small bowel and mesentery and peritoneal surface in the pelvis. Some of the multi cysts were ruptured with removal. Other sites of involvement included the bladder peritoneum, right anterior abdominal wall, surface disease on the sigmoid colon as well as plaque-like nodule in the sigmoid colon which was suspicious for infiltration into the muscularis. There were nodules along the left pericolic gutter, sigmoid colon, right pericolic gutter, sigmoid mesentery, right pelvic peritoneum, and right anterior abdominal wall peritoneum. The omentum also appeared very suspicious. Pathology showed mucinous adenocarcinoma involving virtually all of the submitted specimens, including both ovaries, omentum, appendix, sigmoid colon serosa, bladder peritoneum, right pelvic and right abdominal wall peritoneum, anterior abdominal wall, and numerous other nodules. Grossly the right ovary measured 27.5 x 26 x 16 cm and the left ovary measured 10.5 x 9 x 7 cm. By IHC the tumor cells from the appendix and ovary were positive for CK7, CK20, and CDX2. They were negative for PAX8 and ER. It was unclear whether this was primary appendiceal carcinoma with ovarian metastases or vice versa. On further review of the pathology by Dr. Alex Medina at [facility], it was determined to be an appendiceal primary malignancy with bilateral ovarian metastases. On next generation sequencing, the tumor was noted to harbor the BRCA1 mutation. There were no other actionable mutations identified. In particular, KRAS, NRAS, and BRAF mutations were not detected. The tumor mutational burden was noted to be low at 7 mut/Mb and the PD-L1 expression was negative (0%). Genomic loss of heterozygosity was noted to be high at 21%. Her medical history is otherwise significant for anxiety/depression, but no other medical illnesses. She has a history of smoking 1 pack of cigarettes daily for 20 years. She quit smoking in June 2018. Family history is significant for a paternal aunt having had breast cancer. INTERIM HISTORY: She is seen for a follow-up visit. She has been feeling much better generally with additional time to recover from the surgery. She has improved energy/activity tolerance and there appetite also is getting better. Her weight is still down 45 pounds compared to November 2020. She does not have fever, night sweats, or hot flashes. She has not had sore mouth or throat. She does not complain of cough, and she has not been having shortness of breath or chest pain. She has occasional postprandial nausea. She has no other GI or complaints. She has some joint pain, mainly in her hands. She does not complain of headache. She has occasional dysequilibrium. She has no numbness/paresthesia or other focal neurologic symptoms. Medications: Allergies: No Known Allergies. Vital Signs: Performed on Aug 12, 2021 11:50 Height - 66.00 in Weight - 179.4 lbs (LOW) BSA - 1.91 sq.m BMI - 28.96 Temperature - 98.7 F Pulse - 107 /min (HIGH) Respiration - 18 /min BP - 126/81 mm(hg) O2 Sat - 98 % Pain - 0 Fatigue - 0 Physical Examination: Constitutional - She looks much better generally, Eyes - Sclerae nonicteric. Conjunctivae clear, ENMT - No lesions noted in the oral cavity, Hematologic/Lymphatic - No cervical, clavicular, or axillary adenopathy, Respiratory - Lungs are clear with good air movement bilaterally, Cardiovascular - Heart rhythm is regular with a mild tachycardia. There is no murmur, gallop, or rub noted, Abdomen - Soft. Liver and spleen are not enlarged. There is no abdominal mass or ascites noted and there is no inguinal adenopathy, Extremities - No edema, Neurologic - No focal neurologic deficits noted. Lab/Imaging: Test performed on Jun 06, 2021 12:35 Sodium 134 mmol/L Potassium 4.6 mmol/L Chloride 96 mmol/L CO2 27 mmol/L Anion Gap 15.6 BUN 9 mg/dL Creatinine 0.3 mg/dL Cr Clearance (Est) 299.86 mL/min eGFR 236.4 mL/min Glucose 160 mg/dL Osmolality - Calculated 280 mOsm/kg Calcium 9.2 mg/dL Protein, Total 7.0 g/dL Albumin 2.8 g/dL Globulin 4.2 g/dL Bilirubin, Total 0.3 mg/dL ALT (SGPT) 14 U/L AST (SGOT) 21 U/L Alkaline Phosphatase 118 IU/L WBC 12.7 10 3/uL RBC 3.99 10 6/uL HGB 10.6 g/dL HCT 35.1 % MCV 88.0 fl MCH 26.6 pg MCHC 30.2 g/dL RDW 15.3 % Platelet Count 696 10 3/cmm MPV 9.4 fL Neutrophils 9.99 10 3/uL Lymphocytes 1.1 10 3/uL Monocytes 1.1 10 3/uL Eosinophils 0.2 10 3/uL Basophils 0.1 10 3/uL Neutrophil % 78.7 % Lymphocyte % 8.3 % Monocyte % 9.0 % Eosinophil % 1.5 % Basophils % 0.6 % NRBC % 0 % Problem List: 1. Locally advanced adenocarcinoma involving abdomen/pelvis with involvement of both ovaries and appendix. It is not yet determined whether this is primary appendiceal cancer or primary ovarian cancer. 2. Hilar cholangiocarcinoma, stage DARRICK (T3, N1, M0). By next generation sequencing, her tumor was found to harbor a BRCA1 mutation. 3. Anxiety/depression. Problems Addressed with this Encounter and Plan: 1. Patient with locally advanced adenocarcinoma involving abdomen/pelvis. She underwent laparotomy/radical surgical resection on 05/17/2021. There were multiple sites of involvement within the abdomen and pelvis including both ovaries and appendix. Pathology showed mucinous adenocarcinoma with tumor cells positive for CK7, CK20, and CDX2 and negative for PAX8 and ER. Initially it was uncertain whether it was a primary appendiceal versus primary ovarian carcinoma. On further review of the pathology by Dr. Alex Medina at [facility], it was determined to be an appendiceal primary malignancy with bilateral ovarian metastases. On next generation sequencing, the tumor was noted to harbor the BRCA1 mutation. There were no other actionable mutations identified. In particular, KRAS, NRAS, and BRAF mutations were not detected. The tumor mutational burden was noted to be low at 7 mut/Mb and the PD-L1 expression was negative (0%). Genomic loss of heterozygosity was noted to be high at 21%. After further discussion with Dr. Baca, patient was recommended to have evaluation with a colorectal surgeon at [facility] to discuss further management, in particular the possibility of HIPEC. Given her the difficulties she experienced with the surgery and relatively slow recovery, she has opted not to pursue treatment that would require additional surgery. As it has been 3-month interval since the procedure, she will be scheduled now for surveillance CT scans. In the meantime, I am again requesting genetic screening for BRCA, as it would potentially have implications for her further treatment and for her family. In particular, if she is not going to pursue further surgery/HIPEC, I may want to look into the possibility of adjuvant therapy with a PARP inhibitor. 2. She has history of hilar cholangiocarcinoma, stage DARRICK (T3, N1, M0). She underwent extended left hepatectomy with resection of the extrahepatic biliary tree and portal lymphadenectomy, portal vein resection and reconstruction of the right portal venous system, and Ariella-en-Y hepaticojejunostomy to multiple right-sided ducts on 06/28/2018. Surgical pathology showed involvement in one lymph node and positive surgical margin. By next generation sequencing, her tumor was found to harbor a BRCA1 mutation. In August 2018 she began postoperative adjuvant chemotherapy with gemcitabine/Xeloda in August 2018. She completed 2 cycles of treatment no adverse effects. We had then received results of her next generation sequencing study, which showed the BRCA1 mutation. With that finding, I opted to change her chemotherapy to a cisplatin-gemcitabine regimen. She completed 4 cycles of treatment between 10/21/2018 and 12/22/2018. She then underwent consolidation radiation concurrently with Xeloda for chemosensitization. She completed radiation on 03/21/2019 to a total dose of 5400 cGy. She was then followed expectantly. Thus far there does not appear to have been any recurrence of the cholangiocarcinoma. Signed By: Kevon Holt M.D. <<Signature on File>>
== END 2021-08-12 10:15 | disposition home or self-care (01) ==
PROVIDERS: PCP Emergency Medicine; Visit Provider Internal Medicine Medical Oncology
DX: Z08 Encounter for follow-up examination after completed treatment for malignant neoplasm (principal); C76.3 Malignant neoplasm of pelvis; C56.9 Malignant neoplasm of unspecified ovary; C24.0 Malignant neoplasm of extrahepatic bile duct; F41.9 Anxiety disorder, unspecified
CPT/HCPCS: 36415; 99214

== ENCOUNTER 2021-08-19 11:38 | Outpatient (CLI) | payer OTHER, SELFPAY ==
--- NOTE | 2021-08-19 11:46 | CT_ITS ---
WS: [id number] CT CHEST, ABDOMEN, AND PELVIS TECHNIQUE: Contrast-enhanced CT of the chest, abdomen, and pelvis with coronal and sagittal reformatt ed images. CLINICAL INFORMATION: INTRAHEPATIC BILE DUCT CARCINOMA, SECONDARY MALIGNANT NEOPLA COMPARISON: CT May 14, 2021 And June 07, 2020 DLP: [address]9.[address] scans at [facility] use at least one of these dose optimization techniques: automated e xposure control; mA and/or kV adjustment per patient size (includes targeted exams where dose is matc hed to clinical indication); or iterative reconstruction. CT CHEST: Lungs are well aerated. No acute pulmonary infiltrates. Slight atelectasis in the lung bases. No susp icious pulmonary parenchymal abnormalities. Right lower pole thyroid nodule measuring 8 mm. Normal ca liber thoracic aorta. Proximal main pulmonary arteries are normal. No mediastinal or hilar lymphadeno john. No axillary lymphadenopathy. Normal visualized thoracic spine. CT ABDOMEN AND PELVIS: Prior postoperative changes resection of the left hepatic lobe. Prior cholecystectomy. Bilioenteric a nastomosis. Since the prior CT May 14, 2021 Interval resection of the previously described large low-attenuation cystic/mucinous abdominal mass r eportedly of appendiceal origin. Normal spleen. Normal GE junction. Increasing peripherally enhancing lymph nodes or soft tissue metastatic nodules in the upper abdomen increased in size since May 032019 Measuring 1.5 x 1.0 CM. Adrenal glands are normal. Normal renal parenchymal enhancement. No hydronephrosis. Mild fatty atroph y of the pancreas. Normal caliber abdominal aorta. Aortic calcification. Partial sigmoid resection wi th anastomosis. Low-attenuation peripherally enhancing soft tissue or fluid in the right lower quadrant likely repres ents residual or recurrent cystic/mucinous tumor measuring 2.7 x 2.1 cm with adjacent smaller collect ion measuring 1.9 x 1.5 cm. This is in the right lower quadrant about the cecum in the area of the ap pendix. Normal lumbar spine. Several small peripherally enhancing nodules along the superior margin of the adominal incision may may represent neoplasm versus postoperative fluid. Recommend interval follow-up. CT/CT chest abd pel w con* IMPRESSION: 1. No evidence of metastatic disease in the chest. 2. Interval postoperative changes resection of the large cystic/mucinous abdom inal neoplasm reportedly of appendiceal origin. 3. Peripherally enhancing material in the right lower quadrant about the cecum in the area of the appendix suspicious for residual or recurrent disease descr ibed above. These 2 areas measure 2.7 x 2.1 cm with adjacent smaller collection measuring 1.9 x 1.5 cm. 4. Peripherally enhancing low-attenuation nodules in the upper abdomen suspici ous for lymphadenopathy or soft tissue mucinous implants have increased in size since 2020 today measuring 1.0 x 1.5 cm compared to 0.9 x 1.3 cm previo us 5. Several additional small peripherally enhancing nodules along the superior margin of the abdominal incision may may represent neoplasm versus postoperativ e fluid. Recommend interval follow-up.
[2021-08-19] MEDS: iohexol 300 mg/mL 50 mL Btl PO (15:46)
[2021-08-19] MEDS: iohexol 300 mg/mL 100 mL Btl IV (15:46)
== END 2021-08-19 11:39 | disposition home or self-care (01) ==
PROVIDERS: PCP Emergency Medicine; Visit Provider Internal Medicine Medical Oncology
DX: C22.1 Intrahepatic bile duct carcinoma (principal); C79.89 Secondary malignant neoplasm of other specified sites
CPT/HCPCS: 71260; 74177; Q9967

== ENCOUNTER 2021-09-09 09:23 | Outpatient (CLI) | payer OTHER, SELFPAY ==
--- NOTE | 2021-09-10 09:09 | ONC FU_ITS ---
Dr. Holt Patient Follow-Up Note Patient: Stefania Teresa Unit #: [id number]: [id number] Dicatated By: Kevon Holt M.D.Date of Visit:Sep 09, 2021 Onc Med Follow-up/Prog Note Chief Complaint: Cholangiocarcinoma/appendiceal cancer. 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 She underwent surgical resection for the cholangiocarcinoma in June 2018. She received postoperative adjuvant chemotherapy followed by chemoradiation, completed in March 2019. As of her follow-up visit in November 2020 she appeared stable clinically with no evidence of recurrence of the cholangiocarcinoma. In April 2021 she was referred to Dr. Perla in [place] after she had been found on CT to have a large pelvic mass. On 05/17/2021 she underwent exploratory laparotomy for radical surgical resection of suspected ovarian cancer. The procedure included bilateral salpingo-oophorectomy, total abdominal hysterectomy, partial sigmoid colectomy, omentectomy, appendectomy, and excision of multiple tumor nodules. Grossly she was noted to have a multicystic mass with a large friable area of necrosis on the surface. There was involvement by attachment to multiple loops of small bowel and mesentery and peritoneal surface in the pelvis. Some of the multi cysts were ruptured with removal. Other sites of involvement included the bladder peritoneum, right anterior abdominal wall, surface disease on the sigmoid colon as well as plaque-like nodule in the sigmoid colon which was suspicious for infiltration into the muscularis. There were nodules along the left pericolic gutter, sigmoid colon, right pericolic gutter, sigmoid mesentery, right pelvic peritoneum, and right anterior abdominal wall peritoneum. The omentum also appeared very suspicious. Pathology showed mucinous adenocarcinoma involving virtually all of the submitted specimens, including both ovaries, omentum, appendix, sigmoid colon serosa, bladder peritoneum, right pelvic and right abdominal wall peritoneum, anterior abdominal wall, and numerous other nodules. Grossly the right ovary measured 27.5 x 26 x 16 cm and the left ovary measured 10.5 x 9 x 7 cm. By IHC the tumor cells from the appendix and ovary were positive for CK7, CK20, and CDX2. They were negative for PAX8 and ER. It was unclear whether this was primary appendiceal carcinoma with ovarian metastases or vice versa. On further review of the pathology by Dr. Alex Medina at [facility], it was determined to be an appendiceal primary malignancy with bilateral ovarian metastases. On next generation sequencing, the tumor was noted to harbor the BRCA1 mutation. There were no other actionable mutations identified. In particular, KRAS, NRAS, and BRAF mutations were not detected. The tumor mutational burden was noted to be low at 7 mut/Mb and the PD-L1 expression was negative (0%). Genomic loss of heterozygosity was noted to be high at 21%. Her subsequent genetic screening did confirm germline BRCA1 mutation ([id number]). I had seen her for a follow-up visit on 06/06/2021. At that point she was still recovering from the surgery, and she was not interested in pursuing any further treatment. Her cholangiocarcinoma was discovered in April 2018 when she had presented with obstructive jaundice. Her CT abdomen/pelvis at that time showed intrahepatic ductal dilatation with contracted gallbladder containing stones. ERCP on 05/05/2018 showed evidence of stricture in the upper third of the main bile duct. At that time she underwent sphincterotomy with stenting of the main and pancreatic duct. Brushings were atypical. On a ERCP on 05/21/2018 the brushings were positive for adenocarcinoma. EUS with lymph node biopsy on 06/07/2018 showed extrahepatic disease involving 1 lymph node, which precluded transplant. Her repeat CT abdomen/pelvis on 06/15/2018 showed ill-defined soft tissue mass centered at the origin of the left intrahepatic ductal system with predominantly left intrahepatic biliary ductal dilatation. There was a suggestion of extension of soft tissue into the proximal right intrahepatic ductal system as well as the extreme proximal aspect of the common duct. There was encasement of the left portal vein with at least abutment and narrowing of the proximal right portal vein and distal aspect of the main portal vein. There was likely short segment abutment of the right hepatic artery adjacent to the level of the greatest left portal vein narrowing in the hilum. On 06/28/2018 she underwent extended left hepatectomy with resection of the extrahepatic biliary tree and portal lymphadenectomy, portal vein resection and reconstruction of the right portal venous system, and Ariella-en-Y hepaticojejunostomy to multiple right-sided ducts. At surgery she was noted have a firm mass predominantly in the left side of the liver. By intraoperative ultrasound the tumor appeared resectable, though it was noted to directly abut the portal vein bifurcation. Also noted were several firm retroportal lymph nodes which were resected with the lymphadenectomy. The ultrasound showed no evidence of other metastatic sites within the liver. Pathology showed invasive moderately differentiated adenocarcinoma predominantly involving the left hepatic duct with adjacent hepatic parenchyma, including involvement of the caudate lobe and with extension to the hilum, soft tissue around the bile duct, and common hepatic duct. Tumor was involving the left portal vein. There was extensive lymphovascular and perineural invasion present. The cauterized parenchymal margin at the caudate lobe and the cauterized radial margin around the extrahepatic portion of the bile duct were involved. There was involvement in 1 of 6 lymph nodes. In August 2018 she began adjuvant chemotherapy with gemcitabine/Xeloda. She completed 2 cycles of treatment with no adverse effects. She was then seen for a scheduled visit on 10/05/2018. At that point we had received the results of her next generation sequencing study, which showed evidence of a BRCA1 mutation. With that finding, I opted to change her chemotherapy to a holy cross-containing regimen. She returned on 10/21/2018 for her 1st cycle of cisplatin/gemcitabine, administered on a day 1/day 8 schedule every 21 days. She was able to tolerate it with acceptable toxicity, and she continued with cycle 2 on 11/10/2018, with cycle 3 on 12/01/2018, and with cycle 4 on 12/22/2018. On 02/08/2019 she began consolidation radiation concurrently with Xeloda for chemosensitization. She completed radiation on 03/21/2019 to a total dose of 5400 cGy. She was then managed expectantly. During that time, I had requested genetic screening, but it was denied by her insurance carrier. Her medical history is otherwise significant for anxiety/depression, but no other medical illnesses. She has a history of smoking 1 pack of cigarettes daily for 20 years. She quit smoking in June 2018. Family history is significant for a paternal aunt having had breast cancer. INTERIM HISTORY: As of her followup visit on 08/12/2021 she was feeling much better. Her restaging CT scans of the chest, abdomen, pelvis on 08/19/2021 showed interval resection of the large cystic/mucinous abdominal neoplasm. There were 2 areas of peripherally enhancing material noted in the right lower quadrant about the cecum in the area of the appendix was suspicious for residual or recurrent disease, one measuring 2.7 x 2.1 cm and the other measuring 1.9 x 1.5 cm. Additional peripherally enhancing low-attenuation nodules in the upper abdomen were suspicious for lymphadenopathy or soft tissue mucin and implants and were noted to have increased in size compared to the preoperative CT scan, the larger measuring 1.0 x 1.5 cm. Several additional small peripheral enhancing nodules along the superior margin of the abdominal incision were felt to be consistent with residual neoplasm versus postoperative fluid. She has seen now to discuss further management of the appendiceal cancer. She has been feeling good generally. Her energy and activity tolerance are pretty much back to normal. ECOG score is 0. She has good appetite. She does not have fever, night sweats, or hot flashes. She has no shortness of breath, cough, or chest pain. She currently has no GI or complaints. She has a little joint pain in her hands and occasionally in her left shoulder. She does not complain of headache or dizziness, and she has no focal neurologic symptoms. Medications: She is currently not on any prescription medication. Allergies: No Known Allergies. Vital Signs: Performed on Sep 09, 2021 11:08 Height - 66.00 in Weight - 179.2 lbs (LOW) BSA - 1.91 sq.m BMI - 28.92 Temperature - 98.3 F (LOW) Pulse - 126 /min (HIGH) Respiration - 16 /min BP - 121/77 mm(hg) O2 Sat - 97 % Pain - 0 Fatigue - 0 Problem List: 1. 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 2. Hilar cholangiocarcinoma, stage ADRRICK (T3, N1, M0). 3. She has a confirmed germline BRCA1 mutation. 4. Anxiety/depression. Problems Addressed with this Encounter and Plan: 1. Patient with locally advanced adenocarcinoma involving abdomen/pelvis. She underwent laparotomy/radical surgical resection on 05/17/2021. There were multiple sites of involvement within the abdomen and pelvis including both ovaries and appendix. Pathology showed mucinous adenocarcinoma with tumor cells positive for CK7, CK20, and CDX2 and negative for PAX8 and ER. Initially it was uncertain whether it was a primary appendiceal versus primary ovarian carcinoma. On further review of the pathology by Dr. Alex Medina at [facility], it was determined to be an appendiceal primary malignancy with bilateral ovarian metastases. On next generation sequencing, the tumor was noted to harbor a BRCA1 mutation, now confirmed to be a germline. There were no other actionable mutations identified. In particular, KRAS, NRAS, and BRAF mutations were not detected. The tumor mutational burden was noted to be low at 7 mut/Mb and the PD-L1 expression was negative (0%). Genomic loss of heterozygosity was noted to be high at 21%. After discussion with Dr. Baca, patient was recommended to have evaluation with Dr. Miquel Gregory at [facility] to discuss further management, in particular the possibility of HIPEC. Given her the difficulties she had experienced with the surgery and her relatively difficult recovery, she had initially indicated that she did not want to pursue treatment that would require additional surgery. However, as of her follow-up in August 2021 she was feeling much better. Her restaging CT scans on 08/19/2021 showed enhancing material in the right lower quadrant about the cecum in the area of the appendix which were felt to be suspicious for residual or recurrent disease as well as additional peripherally enhancing low-attenuation nodules in the upper abdomen thought to be suspicious for lymphadenopathy or soft tissue mucin and implants. With those findings she has now been referred to [facility] for further management. She is tentatively scheduled to be seen there in 1 week for surgical and medical oncology consultation. 2. She has history of hilar cholangiocarcinoma, stage DARRICK (T3, N1, M0). She underwent extended left hepatectomy with resection of the extrahepatic biliary tree and portal lymphadenectomy, portal vein resection and reconstruction of the right portal venous system, and Ariella-en-Y hepaticojejunostomy to multiple right-sided ducts on 06/28/2018. Surgical pathology showed involvement in one lymph node and positive surgical margin. By next generation sequencing, her tumor was found to harbor a BRCA1 mutation. In August 2018 she began postoperative adjuvant chemotherapy with gemcitabine/Xeloda in August 2018. She completed 2 cycles of treatment no adverse effects. We had then received results of her next generation sequencing study, which showed the BRCA1 mutation. With that finding, her chemotherapy was changed to a cisplatin-gemcitabine regimen. She completed 4 cycles of treatment between 10/21/2018 and 12/22/2018. She then underwent consolidation radiation concurrently with Xeloda for chemosensitization. She completed radiation on 03/21/2019 to a total dose of 5400 cGy. She was then followed expectantly. Thus far there does not appear to have been any recurrence of the cholangiocarcinoma. Signed By: Kevon Holt M.D. <<Signature on File>>
== END 2021-09-09 09:24 | disposition home or self-care (01) ==
LOC: ONCMED 09:25
PROVIDERS: PCP Emergency Medicine; Visit Provider Internal Medicine Medical Oncology
DX: C78.5 Secondary malignant neoplasm of large intestine and rectum (principal); Z85.09 Personal history of malignant neoplasm of other digestive organs; F41.9 Anxiety disorder, unspecified; F32.A Depression, unspecified; F17.210 Nicotine dependence, cigarettes, uncomplicated; Z80.3 Family history of malignant neoplasm of breast
CPT/HCPCS: 99214

== ENCOUNTER 2021-10-03 10:35 | Outpatient (CLI) | payer OTHER, SELFPAY ==
--- NOTE | 2021-10-03 16:43 | ONC FU_ITS ---
Dr. Holt Patient Follow-Up Note Patient: Stefania Teresa Unit #: [id number]: [id number] Dicatated By: Kevon Holt M.D.Date of Visit:Oct 03, 2021 Onc Med Follow-up/Prog Note Chief Complaint: Cholangiocarcinoma. History of Present Illness: This is a 51 year-old woman with hilar cholangiocarcinoma, stage DARRICK (T3, N1, M0) at initial diagnosis in June 2018. She now has evidence of recurrence in the abdomen/pelvis. She underwent surgical resection for the cholangiocarcinoma in June 2018. She received postoperative adjuvant chemotherapy followed by chemoradiation, completed in March 2019. As of her follow-up visit in November 2020 she appeared stable clinically with no evidence of recurrence of the cholangiocarcinoma. In April 2021 she was referred to Dr. Perla in [place] after she had been found on CT to have a large pelvic mass. On 05/17/2021 she underwent exploratory laparotomy for radical surgical resection of suspected ovarian cancer. The procedure included bilateral salpingo-oophorectomy, total abdominal hysterectomy, partial sigmoid colectomy, omentectomy, appendectomy, and excision of multiple tumor nodules. Grossly she was noted to have a multicystic mass with a large friable area of necrosis on the surface. There was involvement by attachment to multiple loops of small bowel and mesentery and peritoneal surface in the pelvis. Some of the multi cysts were ruptured with removal. Other sites of involvement included the bladder peritoneum, right anterior abdominal wall, surface disease on the sigmoid colon as well as plaque-like nodule in the sigmoid colon which was suspicious for infiltration into the muscularis. There were nodules along the left pericolic gutter, sigmoid colon, right pericolic gutter, sigmoid mesentery, right pelvic peritoneum, and right anterior abdominal wall peritoneum. The omentum also appeared very suspicious. Pathology showed mucinous adenocarcinoma involving virtually all of the submitted specimens, including both ovaries, omentum, appendix, sigmoid colon serosa, bladder peritoneum, right pelvic and right abdominal wall peritoneum, anterior abdominal wall, and numerous other nodules. Grossly the right ovary measured 27.5 x 26 x 16 cm and the left ovary measured 10.5 x 9 x 7 cm. By IHC the tumor cells from the appendix and ovary were positive for CK7, CK20, and CDX2. They were negative for PAX8 and ER. It was unclear whether this was primary appendiceal carcinoma with ovarian metastases or vice versa. On further review of the pathology by Dr. 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 On next generation sequencing, the tumor was noted to harbor the BRCA1 mutation. There were no other actionable mutations identified. In particular, KRAS, NRAS, and BRAF mutations were not detected. The tumor mutational burden was noted to be low at 7 mut/Mb and the PD-L1 expression was negative (0%). Genomic loss of heterozygosity was noted to be high at 21%. Her subsequent genetic screening did confirm germline BRCA1 mutation ([id number]). I had seen her for a follow-up visit on 06/06/2021. At that point she was still recovering from the surgery, and she was not interested in pursuing any further treatment. Her cholangiocarcinoma was discovered in April 2018 when she had presented with obstructive jaundice. Her CT abdomen/pelvis at that time showed intrahepatic ductal dilatation with contracted gallbladder containing stones. ERCP on 05/05/2018 showed evidence of stricture in the upper third of the main bile duct. At that time she underwent sphincterotomy with stenting of the main and pancreatic duct. Brushings were atypical. On a ERCP on 05/21/2018 the brushings were positive for adenocarcinoma. EUS with lymph node biopsy on 06/07/2018 showed extrahepatic disease involving 1 lymph node, which precluded transplant. Her repeat CT abdomen/pelvis on 06/15/2018 showed ill-defined soft tissue mass centered at the origin of the left intrahepatic ductal system with predominantly left intrahepatic biliary ductal dilatation. There was a suggestion of extension of soft tissue into the proximal right intrahepatic ductal system as well as the extreme proximal aspect of the common duct. There was encasement of the left portal vein with at least abutment and narrowing of the proximal right portal vein and distal aspect of the main portal vein. There was likely short segment abutment of the right hepatic artery adjacent to the level of the greatest left portal vein narrowing in the hilum. On 06/28/2018 she underwent extended left hepatectomy with resection of the extrahepatic biliary tree and portal lymphadenectomy, portal vein resection and reconstruction of the right portal venous system, and Ariella-en-Y hepaticojejunostomy to multiple right-sided ducts. At surgery she was noted have a firm mass predominantly in the left side of the liver. By intraoperative ultrasound the tumor appeared resectable, though it was noted to directly abut the portal vein bifurcation. Also noted were several firm retroportal lymph nodes which were resected with the lymphadenectomy. The ultrasound showed no evidence of other metastatic sites within the liver. Pathology showed invasive moderately differentiated adenocarcinoma predominantly involving the left hepatic duct with adjacent hepatic parenchyma, including involvement of the caudate lobe and with extension to the hilum, soft tissue around the bile duct, and common hepatic duct. Tumor was involving the left portal vein. There was extensive lymphovascular and perineural invasion present. The cauterized parenchymal margin at the caudate lobe and the cauterized radial margin around the extrahepatic portion of the bile duct were involved. There was involvement in 1 of 6 lymph nodes. In August 2018 she began adjuvant chemotherapy with gemcitabine/Xeloda. She completed 2 cycles of treatment with no adverse effects. She was then seen for a scheduled visit on 10/05/2018. At that point we had received the results of her next generation sequencing study, which showed evidence of a BRCA1 mutation. With that finding, I opted to change her chemotherapy to a bear river-containing regimen. She returned on 10/21/2018 for her 1st cycle of cisplatin/gemcitabine, administered on a day 1/day 8 schedule every 21 days. She was able to tolerate it with acceptable toxicity, and she continued with cycle 2 on 11/10/2018, with cycle 3 on 12/01/2018, and with cycle 4 on 12/22/2018. On 02/08/2019 she began consolidation radiation concurrently with Xeloda for chemosensitization. She completed radiation on 03/21/2019 to a total dose of 5400 cGy. She was then managed expectantly. During that time, I had requested genetic screening, but it was denied by her insurance carrier. Her medical history is otherwise significant for anxiety/depression, but no other medical illnesses. She has a history of smoking 1 pack of cigarettes daily for 20 years. She quit smoking in June 2018. Family history is significant for a paternal aunt having had breast cancer. INTERIM HISTORY: As of her followup visit on 08/12/2021 she was feeling much better. Her restaging CT scans of the chest, abdomen, pelvis on 08/19/2021 showed interval resection of the large cystic/mucinous abdominal neoplasm. There were 2 areas of peripherally enhancing material noted in the right lower quadrant about the cecum in the area of the appendix was suspicious for residual or recurrent disease, one measuring 2.7 x 2.1 cm and the other measuring 1.9 x 1.5 cm. Additional peripherally enhancing low-attenuation nodules in the upper abdomen were suspicious for lymphadenopathy or soft tissue mucin and implants and were noted to have increased in size compared to the preoperative CT scan, the larger measuring 1.0 x 1.5 cm. Several additional small peripheral enhancing nodules along the superior margin of the abdominal incision were felt to be consistent with residual neoplasm versus postoperative fluid. She then had surgical consultation with Dr. Miquel Contreras at [facility], and at that time she also had medical oncology consultation with Dr. Giuliana Mahmood. On the review of the pathology there, it was felt that she more likely had recurrent cholangiocarcinoma as opposed to new primary appendiceal or ovarian cancer. To that end, in comparing her next generation sequencing studies from the 2018 in the 2020 surgeries, they did appear identical. With that in mind, she was recommended to begin further chemotherapy with modified FOLFOX or oxaliplatin/Xeloda following a restaging PET/CT. She returns today to discuss treatment. She has been feeling good generally. She is, understandably, not anxious to start back on chemotherapy. She is scheduled to see Dr. Conde today regard to Port-A-Cath placement. Medications: She is currently not on any prescription medication. Allergies: No Known Allergies. Vital Signs: Performed on Oct 03, 2021 11:24 Height - 66.00 in Weight - 172.0 lbs (LOW) BSA - 1.88 sq.m BMI - 27.76 Temperature - 98.8 F Pulse - 143 /min (HIGH) Respiration - 18 /min BP - 120/85 mm(hg) O2 Sat - 96 % Pain - 0 Fatigue - 1 Problem List: 1. Hilar cholangiocarcinoma, stage DARRICK (T3, N1, M0) at initial diagnosis in June 2018. She now has evidence of recurrence in the abdomen/pelvis. 2. She has a confirmed germline BRCA1 mutation. 3. Anxiety/depression. Problems Addressed with this Encounter and Plan: Patient with hilar cholangiocarcinoma, stage DARRICK (T3, N1, M0). She underwent extended left hepatectomy with resection of the extrahepatic biliary tree and portal lymphadenectomy, portal vein resection and reconstruction of the right portal venous system, and Ariella-en-Y hepaticojejunostomy to multiple right-sided ducts on 06/28/2018. Surgical pathology showed involvement in one lymph node and positive surgical margin. In August 2018 she began postoperative adjuvant chemotherapy with gemcitabine/Xeloda in August 2018. She completed 2 cycles of treatment no adverse effects. We had then received results of her next generation sequencing study, which showed the BRCA1 mutation. With that finding, her chemotherapy was changed to a cisplatin-gemcitabine regimen. She completed 4 cycles of treatment between 10/21/2018 and 12/22/2018. She then underwent consolidation radiation concurrently with Xeloda for chemosensitization. She completed radiation on 03/21/2019 to a total dose of 5400 cGy. She was then followed expectantly. In April 2021 she was referred to Dr. Peral in [place] after she had been found on CT to have a large pelvic mass. She underwent laparotomy/radical surgical resection on 05/17/2021. There were multiple sites of involvement within the abdomen and pelvis including both ovaries and appendix. Pathology showed mucinous adenocarcinoma with tumor cells positive for CK7, CK20, and CDX2 and negative for PAX8 and ER. Initially it was thought to be either from a primary appendiceal versus primary ovarian carcinoma. She then had surgical consultation with Dr. Miquel Contreras at [facility], and at that time she also had medical oncology consultation with Dr. Giuliana Mahmood. On their review of the pathology, it was felt that she more likely had recurrent cholangiocarcinoma as opposed to new primary appendiceal or ovarian cancer. To that end, in comparing her next generation sequencing studies from the 2018 in the 2020 surgeries, they did appear identical. With that in mind, she was recommended to begin further chemotherapy with modified FOLFOX or oxaliplatin/Xeloda following a restaging PET/CT. I reviewed the treatment recommendations from Dr. Mahmood. She is scheduled now to see Dr. Conde for placement of Port-A-Cath venous access device. She also now will be scheduled for restaging PET/CT. She will then begin chemotherapy with modified FOLFOX. I reviewed anticipated side effects which may include nausea/vomiting, fatigue, alopecia, low blood counts, and neuropathy, among others. She will tentatively be planned for follow-up and restaging at [facility] after 6 cycles. Signed By: Kevon Holt M.D. <<Signature on File>>
== END 2021-10-03 10:36 | disposition home or self-care (01) ==
PROVIDERS: PCP Emergency Medicine; Visit Provider Internal Medicine Medical Oncology
DX: C34.02 Malignant neoplasm of left main bronchus (principal); C78.7 Secondary malignant neoplasm of liver and intrahepatic bile duct; C77.8 Secondary and unspecified malignant neoplasm of lymph nodes of multiple regions; C79.63 Secondary malignant neoplasm of bilateral ovaries; C78.5 Secondary malignant neoplasm of large intestine and rectum; C79.89 Secondary malignant neoplasm of other specified sites; R97.8 Other abnormal tumor markers; F41.9 Anxiety disorder, unspecified; F32.A Depression, unspecified; Z79.899 Other long term (current) drug therapy
CPT/HCPCS: 87635; 99214

== ENCOUNTER 2021-10-07 13:41 | Day surgery (SDC) | payer OTHER, SELFPAY ==
[2021-10-04 16:01] VITALS: BMI 27.7
--- NOTE | 2021-10-07 | SCC_ITS ---
Procedure done: 1. Placement of right internal jugular vein PowerPort 2. Fluoroscopic guidance and interpretation for placement of catheter 3. Ultrasound guidance to access the right internal jugular vein 24.5 seconds of fluoroscopic guidance, for a cumulative dose of 1.84 mGy, was provided to Dr. Conde by the radiology department. C-arm images of the chest were saved for the patient's permanent record. [facility]
--- NOTE | 2021-10-07 14:44 | SC_ITS ---
WS: [id number] C-ARM RADIOGRAPHS CHEST; 2 IMAGES HISTORY: Powerport Placement COMPARISON: None available. Intraoperative imaging during RIGHT subclavian PowerPort placement. Tip of the power port extends int o the region of the distal SVC. SC/C-arm FL for CVA [id number] IMPRESSION: Intraoperative imaging during power port placement.
[2021-10-07 14:53] VITALS: BP 148/82; PULSE 70; RESP 16; TEMP 36.6; O2SAT 97
[2021-10-07] MEDS: sodium chloride 0.9% 1,000 ML 30 ML IV (15:00)
--- NOTE | 2021-10-07 15:28 | ANES.PREANE2 ---
Pre-Anesthetic Assessment Height/Weight: Height 1.68 m Weight 78.018 kg Temp Pulse Resp BP Pulse Ox 98 F 70 16 148/82 97 10/07/21 14:53 10/07/21 14:53 10/07/21 14:53 10/07/21 14:53 10/07/21 14:53 Preop Diagnosis: Recurrent cholangiocarcinoma Operation Date: 10/07/21 15:45 Proposed Procedures p Portacath Placement 19835/C80.1(Not Applicable) - Gilberto Conde MD Familial anesthetic complications: none Was Beta Napoleon taken within 24 hours: N/A Was Clonidine taken within 24 hours: N/A Last intake: Intake Last Liquid Date 10/06/21 Last Liquid Time 21:00 Last Solid Date 10/06/21 Last Solid Time 20:00 Social No alcohol and No tobacco Exam alert, oriented x 3, clear to auscultation bilaterally and regular rate & rhythm Airway Submandibular: within normal limits Cervical ROM: within normal limits Mallampati: Class II Dentition: chipped and partials History/ROS No significant history except as noted and No significant complaints Pulmonary None reported CV/HEM None reported None reported Hepatic None reported GI Recurrent metastasis w/ hx of bile duct carcinoma Metabolic None reported Musc/skel None reported Neuropsych None reported Anesthetic Plan ASA status: 2 Anesthesia: Anesthesia Evaluation, General and MAC Other: I discussed with the patient risks, goals, and benefits of MAC and general anesthesia. We discussed spectrum of MAC anesthesia including conversion to general as well as possibility of recall of intraoperative stimuli including discomfort/pain. Patient agrees to proceed with MAC. Risk of > 500 ml blood loss (7ml/kg in children): No Medications/Allergies Home Medications Medication Instructions Recorded Confirmed Last Taken Type citalopram 10 mg tablet 10 mg PO DAILY 10/03/21 10/07/21 10/06/21 History Allergies Allergy/AdvReac Type Severity Reaction Status Date / Time No Known Allergies Allergy Verified 10/04/21 16:42 Current Medications Generic Name Dose Route Start Last Admin Trade Name Freq PRN Reason Stop Dose Admin Sodium Chloride 1,000 mls @ 30 mls/hr 10/07/21 14:45 10/07/21 15:00 Sodium Chloride 0.9% IV 10/08/21 14:44 30 mls/hr .Q24H GENET Administration PFSH Anesthesia Family History Other Cancer Social History Smoking and tobacco status: current every day smoker Data Anesthesia Cardiac Studies: No Data to Display
--- NOTE | 2021-10-07 15:41 | W.PM.OPSUD ---
Surgery/Procedure H&P Update DATE OF PROCEDURE: October 07, 2021 DATE H&P PERFORMED: 10/03/21 CHANGES TO PREVIOUS DOCUMENTATION: none PREOP DIAGNOSIS: Recurrent cholangiocarcinoma PRIMARY INDICATION FOR PROCEDURE: The same PLANNED PROCEDURE: Operation Date: 10/07/21 15:45 Proposed Procedures p Portacath Placement 57144/C80.1(Not Applicable) - Gilberto Conde MD
[2021-10-07] MEDS: heparin, porcine 1,000 unit/mL INJ 10 mL 10000 UNIT IRRIGATION (16:39)
[2021-10-07] MEDS: lidocaine 2% INJ 20 mL INJECTION (16:41)
--- NOTE | 2021-10-07 16:56 | PM.OP ---
Operative Report Date of procedure: October 07, 2021 Pre-op diagnosis: Preop Diagnosis Recurrent cholangiocarcinoma Post-op diagnosis: The same Post-op findings: Difficult access right subclavian vein Procedure done: 1. Placement of right internal jugular vein PowerPort 2. Fluoroscopic guidance and interpretation for placement of catheter 3. Ultrasound guidance to access the right internal jugular vein Surgeon: Gilberto Conde MD News Photographer: Paris Nguyễn Circulating nurse Aziza Anesthesia: MAC (classified advertising supervisor Elbert) Estimated blood loss (mL): 5 Procedure: Patient was identified in the holding area and taken to the operative room and placed in supine position IV propofol was given by the anesthesia provider ,both arms were tucked,Time-out was done verifying the patient's name/date of /planned procedure and destination after the procedure, all were in agreement. SCDs confirmed to be functioning, preoperative antibiotics administered per protocol, and beta rafita protocol was confirmed, appropriate positioning of the patient was done by me. Medications were reviewed to assess for anticoagulant usage. Risks and benefits and prevention of central line associated blood stream infection (CLABSI) were discussed with the patient/CPOA, and a consent was obtained. Monitors were in place and monitored throughout the procedure. All necessary supplies were available prior to start. Hand hygiene was completed prior to starting. Maximum barrier technique was utilized including a sterile gown, sterile gloves with a hat and mask. Site was was prepped with [chlorhexidine] and a full body drape was placed. 5 mL of 2% lidocaine was injected into the skin with a 25 gauge needle. Prep& drape was done under the usual sterile technique, lidocaine 2% was injected at the site of the stick, started by right subclavian vein and after a couple attempts I decided to abort as I was able to retrieve venous blood but the wire will not thread so I deviated my attention towards right Internal Juglar vein (and appropriate pressure was held on the right subclavian area for few minutes). First stick retrieved venous blood from the right internal jugular vein which was obtained under ultrasound guidance and there was no evidence of intraluminal thrombosis, interpretation was done by me through the whole entire procedure, a guidewire was then threaded and under the guidance of fluoroscopy position was confirmed to be in the IVC and my interpretation, there was no PVC changes, at that point the guidewire was secured to the drapes with a hemostat and the needle was taken out. Attention was then deviated towards creation of a pocket for the port were lidocaine 2% was injected using an 15 blade knife skin incision was created at the right upper Chest ,dissection using the Bovie to create a pocket for the PowerPort to be accommodated, hemostasis was secured, after the port being appropriately flushed it was inserted into the pocket and a tunneler was used to accommodate the catheter of the port cath to be delivered through the incision first created at the site of the stick. At that point under fluoroscopy an estimated length was measured for the catheter and was cut at the designed level, followed by that a dilator with the sheath introduced onto the guidewire the dilator and the wire were retrieved and the catheter of the port was introduced via the sheath where it was peeled off and the catheter maintained to be in the SVC that was confirmed with fluoroscopy, and the fluoroscopy interpretation was done by me throughout the entire procedure. Multiple flushes of the port was done by heparin and I was able to retrieve without difficulty venous blood as well as appropriate flushing was achieved. The port was kept in its pocket, closure using 3-0 Vicryl as deep subdermal interrupted sutures, skin was then closed by 4-0 Monocryl as subcuticular closure. The stick site was closed by 4-0 Monocryl and Dermabond was used followed by dressing. Patient tolerated the procedure well was taken to the recovery area Count was correct at the end of the procedure I was present for the whole entire procedure Postoperative chest x-ray showed no pneumothorax and appropriate position of the PowerPort
[2021-10-07 17:02] VITALS: BP 126/74; PULSE 68; RESP 16; TEMP 36.1; O2SAT 94
--- NOTE | 2021-10-07 17:02 | XRR_ITS ---
PROCEDURE INFORMATION: Exam: XR Chest Exam date and time: 10/07/2021 5:02 PM Age: 51 years old Clinical indication: Other vascular access device placement or adjustment; Prior surgery; Surgery date: Post-operative (0-2 days); Surgery type: S/P port placement; Additional info: Status post placement of right internal jugular vein powerpo TECHNIQUE: Imaging protocol: XR of the chest. Views: 1 view. COMPARISON: CT chest abd pel w con* 08/19/2021 1:09 PM FINDINGS: Tubes, catheters and devices: Right IJ [id number] with tip over the mid SVC. Lungs: Mild atelectasis or scarring in the lung bases. The lungs are otherwise clear. Pleural spaces: Unremarkable. No pleural effusion. No pneumothorax. Heart/Mediastinum: Unremarkable. No cardiomegaly. Bones/joints: Unremarkable. XR/XR chest 1V portable [id number] IMPRESSION: Right Jtdlez-N-Cihj placement without pneumothorax.
[2021-10-07 17:07] VITALS: BP 126/88; PULSE 64; RESP 18; O2SAT 95
[2021-10-07 17:12] VITALS: BP 137/94; PULSE 68; RESP 18; TEMP 36.7; O2SAT 97
[2021-10-07 17:20] VITALS: BP 134/94; PULSE 60; RESP 18; O2SAT 95
--- NOTE | 2021-10-07 17:33 | ANE.PACU2 ---
Inpatient post-anesthesia follow up: Airway intact: Yes Vital signs: Temperature 98.0 F Pulse Rate 60 Respiratory Rate 18 Blood Pressure 134/94 Pulse Oximetry 95 Oxygen Delivery Me thod Room Air Oxygen Flow Rate Fraction of Inspir ed Oxygen Hydration adequate: Yes Nausea and vomiting: No Pain level: 1 Mental status: Baseline
== END 2021-10-07 18:04 | disposition home or self-care (01) ==
PROVIDERS: PCP Emergency Medicine; Visit Provider Surgery
PROC: (CPT 36561; principal; 2021-10-07 15:45)
DX: C22.1 Intrahepatic bile duct carcinoma (principal); F17.210 Nicotine dependence, cigarettes, uncomplicated
CPT/HCPCS: 36561; 71045; 76000; 77001; C1788; J0690; J1644; J2250; J2704; J3010; J7030

== ENCOUNTER 2021-10-22 08:06 | Outpatient (CLI) | payer OTHER, SELFPAY ==
[2021-10-22 08:55] LABS: Basophils # 0.1 10^3/uL (0.0-0.1); Basophils % 0.7 %; Eosinophils # 0.2 10^3/uL (0.0-0.8); Eosinophils % 1.8 %; Hematocrit 39.2 % (37.0-47.0); Hemoglobin 12.4 g/dL (11.5-15.3); Lymphocytes # 1.2 10^3/uL (0.8-4.8); Lymphocytes % 10.6 %; Mean Corpuscular HGB Conc 31.6 g/dL (30.0-36.0); Mean Corpuscular Hemoglobin 25.9 pg (28.0-34.0); Mean Platelet Volume 9.6 fL (7.4-10.4); Monocytes % 9.3 %; Neutrophils # 8.44 10^3/uL (1.8-7.7); Neutrophils % 77.3 %; Nucleated Red Blood Cells % 0 %; Platelet Count 333 10^3/cmm (130-400); Red Blood Count 4.78 10^6/uL (4.1-5.3); Red Cell Distribution Width 15.8 % (12.1-15.1); White Blood Count 10.9 10^3/uL (4.0-10.0)
[2021-10-22 09:17] LABS: Alanine Aminotransferase 6 U/L (0-33); Alkaline Phosphatase 90 IU/L (35-105); Anion Gap 14.8 (5-19); Aspartate Amino Transferase 11 U/L (0-32); Blood Urea Nitrogen 13 mg/dL (6-20); Calcium 9.7 mg/dL (8.5-10.5); Carbon Dioxide 29 mmol/L (22-29); Chloride 97 mmol/L (98-107); Glomerular Filtration Rate 106.3 mL/min (90-130); Glucose 145 mg/dL (65-115); Osmolality Calculated 287 mOsm/kg (285-295); Potassium 3.8 mmol/L (3.5-5.1); Sodium 137 mmol/L (136-145); Total Bilirubin 0.3 mg/dL (0.15-1.2)
[2021-10-22] MEDS: dextrose 5% 250 ML 75 ML IV (11:20)
[2021-10-22] MEDS: palonosetron 0.25 mg/5 mL SDV IV (11:25)
--- NOTE | 2021-10-22 21:06 | ONC FU_ITS ---
Kadie Joseph Progress Note Patient: Stefania Teresa Unit #: [id number]: [id number] Dicatated By: Kadie Joseph N.P.Date of Visit:Oct 22, 2021 Onc MED Follow-up/Prog Note Chief Complaint: Cholangiocarcinoma. History of Present Illness: This is a 51 year-old woman with hilar cholangiocarcinoma, stage DARRICK (T3, N1, M0) at initial diagnosis in June 2018. She now has evidence of recurrence in the abdomen/pelvis. She underwent surgical resection for the cholangiocarcinoma in June 2018. She received postoperative adjuvant chemotherapy followed by chemoradiation, completed in March 2019. As of her follow-up visit in November 2020 she appeared stable clinically with no evidence of recurrence of the cholangiocarcinoma. In April 2021 she was referred to Dr. Perla in [place] after she had been found on CT to have a large pelvic mass. On 05/17/2021 she underwent exploratory laparotomy for radical surgical resection of suspected ovarian cancer. The procedure included bilateral salpingo-oophorectomy, total abdominal hysterectomy, partial sigmoid colectomy, omentectomy, appendectomy, and excision of multiple tumor nodules. Grossly she was noted to have a multicystic mass with a large friable area of necrosis on the surface. There was involvement by attachment to multiple loops of small bowel and mesentery and peritoneal surface in the pelvis. Some of the multi cysts were ruptured with removal. Other sites of involvement included the bladder peritoneum, right anterior abdominal wall, surface disease on the sigmoid colon as well as plaque-like nodule in the sigmoid colon which was suspicious for infiltration into the muscularis. There were nodules along the left pericolic gutter, sigmoid colon, right pericolic gutter, sigmoid mesentery, right pelvic peritoneum, and right anterior abdominal wall peritoneum. The omentum also appeared very suspicious. Pathology showed mucinous adenocarcinoma involving virtually all of the submitted specimens, including both ovaries, omentum, appendix, sigmoid colon serosa, bladder peritoneum, right pelvic and right abdominal wall peritoneum, anterior abdominal wall, and numerous other nodules. Grossly the right ovary measured 27.5 x 26 x 16 cm and the left ovary measured 10.5 x 9 x 7 cm. By IHC the tumor cells from the appendix and ovary were positive for CK7, CK20, and CDX2. They were negative for PAX8 and ER. It was unclear whether this was primary appendiceal carcinoma with ovarian metastases or vice versa. On further review of the pathology by Dr. 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 On next generation sequencing, the tumor was noted to harbor the BRCA1 mutation. There were no other actionable mutations identified. In particular, KRAS, NRAS, and BRAF mutations were not detected. The tumor mutational burden was noted to be low at 7 mut/Mb and the PD-L1 expression was negative (0%). Genomic loss of heterozygosity was noted to be high at 21%. Her subsequent genetic screening did confirm germline BRCA1 mutation ([id number]). I had seen her for a follow-up visit on 06/06/2021. At that point she was still recovering from the surgery, and she was not interested in pursuing any further treatment. Her cholangiocarcinoma was discovered in April 2018 when she had presented with obstructive jaundice. Her CT abdomen/pelvis at that time showed intrahepatic ductal dilatation with contracted gallbladder containing stones. ERCP on 05/05/2018 showed evidence of stricture in the upper third of the main bile duct. At that time she underwent sphincterotomy with stenting of the main and pancreatic duct. Brushings were atypical. On a ERCP on 05/21/2018 the brushings were positive for adenocarcinoma. EUS with lymph node biopsy on 06/07/2018 showed extrahepatic disease involving 1 lymph node, which precluded transplant. Her repeat CT abdomen/pelvis on 06/15/2018 showed ill-defined soft tissue mass centered at the origin of the left intrahepatic ductal system with predominantly left intrahepatic biliary ductal dilatation. There was a suggestion of extension of soft tissue into the proximal right intrahepatic ductal system as well as the extreme proximal aspect of the common duct. There was encasement of the left portal vein with at least abutment and narrowing of the proximal right portal vein and distal aspect of the main portal vein. There was likely short segment abutment of the right hepatic artery adjacent to the level of the greatest left portal vein narrowing in the hilum. On 06/28/2018 she underwent extended left hepatectomy with resection of the extrahepatic biliary tree and portal lymphadenectomy, portal vein resection and reconstruction of the right portal venous system, and Ariella-en-Y hepaticojejunostomy to multiple right-sided ducts. At surgery she was noted have a firm mass predominantly in the left side of the liver. By intraoperative ultrasound the tumor appeared resectable, though it was noted to directly abut the portal vein bifurcation. Also noted were several firm retroportal lymph nodes which were resected with the lymphadenectomy. The ultrasound showed no evidence of other metastatic sites within the liver. Pathology showed invasive moderately differentiated adenocarcinoma predominantly involving the left hepatic duct with adjacent hepatic parenchyma, including involvement of the caudate lobe and with extension to the hilum, soft tissue around the bile duct, and common hepatic duct. Tumor was involving the left portal vein. There was extensive lymphovascular and perineural invasion present. The cauterized parenchymal margin at the caudate lobe and the cauterized radial margin around the extrahepatic portion of the bile duct were involved. There was involvement in 1 of 6 lymph nodes. In August 2018 she began adjuvant chemotherapy with gemcitabine/Xeloda. She completed 2 cycles of treatment with no adverse effects. She was then seen for a scheduled visit on 10/05/2018. At that point we had received the results of her next generation sequencing study, which showed evidence of a BRCA1 mutation. With that finding, I opted to change her chemotherapy to a confederated coos-containing regimen. She returned on 10/21/2018 for her 1st cycle of cisplatin/gemcitabine, administered on a day 1/day 8 schedule every 21 days. She was able to tolerate it with acceptable toxicity, and she continued with cycle 2 on 11/10/2018, with cycle 3 on 12/01/2018, and with cycle 4 on 12/22/2018. On 02/08/2019 she began consolidation radiation concurrently with Xeloda for chemosensitization. She completed radiation on 03/21/2019 to a total dose of 5400 cGy. She was then managed expectantly. During that time, I had requested genetic screening, but it was denied by her insurance carrier. Her medical history is otherwise significant for anxiety/depression, but no other medical illnesses. She has a history of smoking 1 pack of cigarettes daily for 20 years. She quit smoking in June 2018. Family history is significant for a paternal aunt having had breast cancer. INTERIM HISTORY: As of her followup visit on 08/12/2021 she was feeling much better. Her restaging CT scans of the chest, abdomen, pelvis on 08/19/2021 showed interval resection of the large cystic/mucinous abdominal neoplasm. There were 2 areas of peripherally enhancing material noted in the right lower quadrant about the cecum in the area of the appendix was suspicious for residual or recurrent disease, one measuring 2.7 x 2.1 cm and the other measuring 1.9 x 1.5 cm. Additional peripherally enhancing low-attenuation nodules in the upper abdomen were suspicious for lymphadenopathy or soft tissue mucin and implants and were noted to have increased in size compared to the preoperative CT scan, the larger measuring 1.0 x 1.5 cm. Several additional small peripheral enhancing nodules along the superior margin of the abdominal incision were felt to be consistent with residual neoplasm versus postoperative fluid. She then had surgical consultation with Dr. Miquel Contreras at [facility], and at that time she also had medical oncology consultation with Dr. Giuliana Mahmood. On the review of the pathology there, it was felt that she more likely had recurrent cholangiocarcinoma as opposed to new primary appendiceal or ovarian cancer. To that end, in comparing her next generation sequencing studies from the 2017 in the 2020 surgeries, they did appear identical. With that in mind, she was recommended to begin further chemotherapy with modified FOLFOX or oxaliplatin/Xeloda following a restaging PET/CT. Patient presents today accompanied by her daughter for education on treatment with FOLFOX. She has mild fatigue but otherwise denies any other problems. Her appetite has been good. No fever, chills, night sweats. No shortness of breath or cough. No GI problems or problems. Review Of Symptoms: See above. Past Medical History: She has had no prior medical illnesses. Past Surgical History: Caesarean section ERCP on 05/21/2018 and on 06/07/2018 Extended left hepatectomy with resection of extrahepatic biliary tree and portal lymphadenectomy in 2018 ERCP with stent placement to the bile duct and pancreatic duct in 2018 Allergies: No Known Allergies. Medications: There is no information available for Current Medications - Patient. Family History: Ms. Teresa's mother is alive: atrial fibril. Ms. Teresa's father at age 73: congestive heart failure. Ms. Teresa has 2 brothers: 2 alive. Father at age 73 with pneumonia and congestive heart failure. Mother still living and in good health at age 75. A paternall aunt had breast cancer. Social History: Ms. Teresa is and she is a [employer]. She is a daily smoker who has smoked 1.0 pack/day for 3 years. She has no history of drinking. She has indicated exposure to the following products: cigarettes. Ms. Teresa reports the following support systems: lives with spouse, significant other, family, or friends. She has a history of smoking 1 pack of cigarettes daily for 20 years. She quit smoking in June 2018. She does not drink alcohol. Patient reports smoking 1 pack per day 08/12/21. Physical Examination: Performed on Oct 22, 2021 10:04: Height - 66.00 in, Weight - 170.6 lbs (LOW), BSA - 1.87 sq.m, BMI - 27.54, Temperature - 98.8 F, Pulse - 100 /min, Respiration - 18 /min, BP - 141/84 mm(hg) (HIGH), O2 Sat - 97 %, Pain - 0, and Fatigue - 2. Performance Status: 0 - Fully active, able to carry on all predisease activities without restrictions. (ECOG) Constitutional Alert, cooperative, oriented. Mood and affect appropriate. Appears close to chronological age. Well nourished. Well developed. Head Normocephalic; no scars. Respiratory Lungs are clear to auscultation without rhonchi or wheezing. Cardiovascular Regular rate and rhythm of heart without murmurs, gallops or rubs. Abdomen Non-tender, non-distended, no masses, ascites or hepatosplenomegaly. Good bowel sounds. No guarding or rebound tenderness. Extremities No edema Musculoskeletal No tenderness or swelling, normal range of motion without obvious weakness. Psychiatric Alert and oriented times three. Coherent speech. Verbalizes understanding of our discussions today. Laboratory: Test performed on Oct 22, 2021 08:45 Sodium 137 mmol/L Potassium 3.8 mmol/L Chloride 97 mmol/L CO2 29 mmol/L Anion Gap 14.8 BUN 13 mg/dL Creatinine 0.6 mg/dL Cr Clearance (Est) 139.6900 mL/min eGFR 106.3 mL/min Glucose 145 mg/dL Osmolality - Calculated 287 mOsm/kg Calcium 9.7 mg/dL Protein, Total 7.0 g/dL Albumin 4.0 g/dL Globulin 3.0 g/dL Bilirubin, Total 0.3 mg/dL ALT (SGPT) 6 U/L AST (SGOT) 11 U/L Alkaline Phosphatase 90 IU/L WBC 10.9 10 3/uL RBC 4.78 10 6/uL HGB 12.4 g/dL HCT 39.2 % MCV 82.0 fl MCH 25.9 pg MCHC 31.6 g/dL RDW 15.8 % Platelet Count 333 10 3/cmm MPV 9.6 fL Neutrophils 8.44 10 3/uL Lymphocytes 1.2 10 3/uL Monocytes 1.0 10 3/uL Eosinophils 0.2 10 3/uL Basophils 0.1 10 3/uL Neutrophil % 77.3 % Lymphocyte % 10.6 % Monocyte % 9.3 % Eosinophil % 1.8 % Basophils % 0.7 % NRBC % 0 % Impression: 1. Hilar cholangiocarcinoma, stage DARRICK (T3, N1, M0) at initial diagnosis in June 2018. She now has evidence of recurrence in the abdomen/pelvis. 2. She has a confirmed germline BRCA1 mutation. 3. Anxiety/depression. Plan: Patient with hilar cholangiocarcinoma, stage DARRICK (T3, N1, M0). She underwent extended left hepatectomy with resection of the extrahepatic biliary tree and portal lymphadenectomy, portal vein resection and reconstruction of the right portal venous system, and Ariella-en-Y hepaticojejunostomy to multiple right-sided ducts on 06/28/2018. Surgical pathology showed involvement in one lymph node and positive surgical margin. In August 2018 she began postoperative adjuvant chemotherapy with gemcitabine/Xeloda in August 2018. She completed 2 cycles of treatment no adverse effects. We had then received results of her next generation sequencing study, which showed the BRCA1 mutation. With that finding, her chemotherapy was changed to a cisplatin-gemcitabine regimen. She completed 4 cycles of treatment between 10/21/2018 and 12/22/2018. She then underwent consolidation radiation concurrently with Xeloda for chemosensitization. She completed radiation on 03/21/2019 to a total dose of 5400 cGy. She was then followed expectantly. In April 2021 she was referred to Dr. Perla in [place] after she had been found on CT to have a large pelvic mass. She underwent laparotomy/radical surgical resection on 05/17/2021. There were multiple sites of involvement within the abdomen and pelvis including both ovaries and appendix. Pathology showed mucinous adenocarcinoma with tumor cells positive for CK7, CK20, and CDX2 and negative for PAX8 and ER. Initially it was thought to be either from a primary appendiceal versus primary ovarian carcinoma. She then had surgical consultation with Dr. Miquel Contreras at [facility], and at that time she also had medical oncology consultation with Dr. Giuliana Mahmood. On their review of the pathology, it was felt that she more likely had recurrent cholangiocarcinoma as opposed to new primary appendiceal or ovarian cancer. To that end, in comparing her next generation sequencing studies from the 2018 in the 2020 surgeries, they did appear identical. With that in mind, she was recommended to begin further chemotherapy with modified FOLFOX or oxaliplatin/Xeloda following a restaging PET/CT. Dr. Holt reviewed the treatment recommendations from Dr. Mahmood. Education and handouts concerning modified FOLFOX treatment were discussed with the patient and her daughter including side effects and treatment plan. She will tentatively be planned for follow-up and restaging at [facility] after 6 cycles. Patient will receive her first treatment of modified FOLFOX today. She will follow-up in 1 week with CBC and CMP. And she will be on a 14-day regimen. Signed By: Kadie Joseph N.P. <<Signature on File>>
== END 2021-10-22 08:07 | disposition home or self-care (01) ==
PROVIDERS: PCP Emergency Medicine; Visit Provider Internal Medicine Medical Oncology
DX: Z51.11 Encounter for antineoplastic chemotherapy (principal); C22.0 Liver cell carcinoma; C77.8 Secondary and unspecified malignant neoplasm of lymph nodes of multiple regions; R79.89 Other specified abnormal findings of blood chemistry; F41.9 Anxiety disorder, unspecified; F32.A Depression, unspecified; Z79.899 Other long term (current) drug therapy
CPT/HCPCS: 80053; 85025; 96367; 96413; 96415; 96417; 99215; J0640; J1100; J2469; J9190; J9263

== ENCOUNTER 2021-10-24 12:56 | Outpatient (CLI) | payer OTHER, SELFPAY | END 2021-10-24 12:57 | disposition home or self-care (01) | LOC: ONCMED 12:56 | PROVIDERS: PCP Emergency Medicine; Visit Provider Nurse Practitioner | DX: Z45.2 Encounter for adjustment and management of vascular access device (principal) | CPT/HCPCS: 96523 ==

== ENCOUNTER 2021-10-28 14:35 | Outpatient (CLI) | payer OTHER, SELFPAY ==
[2021-10-28 15:06] LABS: Basophils # 0.1 10^3/uL (0.0-0.1); Basophils % 0.5 %; Eosinophils # 0.2 10^3/uL (0.0-0.8); Eosinophils % 1.4 %; Hematocrit 38.7 % (37.0-47.0); Hemoglobin 12.2 g/dL (11.5-15.3); Lymphocytes # 1.3 10^3/uL (0.8-4.8); Lymphocytes % 11.7 %; Mean Corpuscular HGB Conc 31.5 g/dL (30.0-36.0); Mean Corpuscular Volume 82.5 fl (81-99); Mean Platelet Volume 9.6 fL (7.4-10.4); Monocytes # 0.8 10^3/uL (0.2-0.9); Monocytes % 7.2 %; Neutrophils % 78.7 %; Nucleated Red Blood Cells % 0 %; Platelet Count 323 10^3/cmm (130-400); Red Blood Count 4.69 10^6/uL (4.1-5.3); Red Cell Distribution Width 15.2 % (12.1-15.1); White Blood Count 11.1 10^3/uL (4.0-10.0)
[2021-10-28 15:16] LABS: Alanine Aminotransferase 9 U/L (0-33); Albumin Level 4.1 g/dL (3.5-5.2); Alkaline Phosphatase 100 IU/L (35-105); Anion Gap 16.3 (5-19); Aspartate Amino Transferase 16 U/L (0-32); Blood Urea Nitrogen 8 mg/dL (6-20); Calcium 9.6 mg/dL (8.5-10.5); Carbon Dioxide 27 mmol/L (22-29); Chloride 97 mmol/L (98-107); Globulin 3.4 g/dL (1.3-4.6); Glomerular Filtration Rate 106.3 mL/min (90-130); Glucose 150 mg/dL (65-115); Osmolality Calculated 285 mOsm/kg (285-295); Potassium 3.3 mmol/L (3.5-5.1); Sodium 137 mmol/L (136-145); Total Bilirubin 0.3 mg/dL (0.15-1.2); Total Protein 7.5 g/dL (6.6-8.7)
== END 2021-10-28 14:36 | disposition home or self-care (01) ==
LOC: ONCMED 14:39
PROVIDERS: PCP Emergency Medicine; Visit Provider Internal Medicine Medical Oncology
DX: C22.1 Intrahepatic bile duct carcinoma (principal); C79.89 Secondary malignant neoplasm of other specified sites; Z79.899 Other long term (current) drug therapy
CPT/HCPCS: 36591; 80053; 85025

== ENCOUNTER 2021-10-29 08:00 | Outpatient (CLI) | payer OTHER, SELFPAY ==
--- NOTE | 2021-10-29 17:51 | ONC FU_ITS ---
Dr. Holt Patient Follow-Up Note Patient: Stefania Teresa Unit #: [id number]: 1970 Dicatated By: Kevon Holt M.D.Date of Visit:Oct 29, 2021 Onc Med Follow-up/Prog Note Chief Complaint: Cholangiocarcinoma. History of Present Illness: This is a 51 year-old woman with hilar cholangiocarcinoma, stage DARRICK (T3, N1, M0) at initial diagnosis in June 2018. She subsequently had recurrence in the abdomen/pelvis. She underwent surgical resection for the cholangiocarcinoma in June 2018. She received postoperative adjuvant chemotherapy followed by chemoradiation, completed in March 2019. As of her follow-up visit in November 2020 she appeared stable clinically with no evidence of recurrence of the cholangiocarcinoma. In April 2021 she was referred to Dr. Perla in [place] after she had been found on CT to have a large pelvic mass. On 05/17/2021 she underwent exploratory laparotomy for radical surgical resection of suspected ovarian cancer. The procedure included bilateral salpingo-oophorectomy, total abdominal hysterectomy, partial sigmoid colectomy, omentectomy, appendectomy, and excision of multiple tumor nodules. Grossly she was noted to have a multicystic mass with a large friable area of necrosis on the surface. There was involvement by attachment to multiple loops of small bowel and mesentery and peritoneal surface in the pelvis. Some of the multi cysts were ruptured with removal. Other sites of involvement included the bladder peritoneum, right anterior abdominal wall, surface disease on the sigmoid colon as well as plaque-like nodule in the sigmoid colon which was suspicious for infiltration into the muscularis. There were nodules along the left pericolic gutter, sigmoid colon, right pericolic gutter, sigmoid mesentery, right pelvic peritoneum, and right anterior abdominal wall peritoneum. The omentum also appeared very suspicious. Pathology showed mucinous adenocarcinoma involving virtually all of the submitted specimens, including both ovaries, omentum, appendix, sigmoid colon serosa, bladder peritoneum, right pelvic and right abdominal wall peritoneum, anterior abdominal wall, and numerous other nodules. Grossly the right ovary measured 27.5 x 26 x 16 cm and the left ovary measured 10.5 x 9 x 7 cm. By IHC the tumor cells from the appendix and ovary were positive for CK7, CK20, and CDX2. They were negative for PAX8 and ER. It was unclear whether this was primary appendiceal carcinoma with ovarian metastases or vice versa. On further review of the pathology by Dr. 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 On next generation sequencing, the tumor was noted to harbor the BRCA1 mutation. There were no other actionable mutations identified. In particular, KRAS, NRAS, and BRAF mutations were not detected. The tumor mutational burden was noted to be low at 7 mut/Mb and the PD-L1 expression was negative (0%). Genomic loss of heterozygosity was noted to be high at 21%. Her subsequent genetic screening did confirm germline BRCA1 mutation ([id number]). I had seen her for a follow-up visit on 06/06/2021. At that point she was still recovering from the surgery, and she was not interested in pursuing any further treatment. Her cholangiocarcinoma was discovered in April 2018 when she had presented with obstructive jaundice. Her CT abdomen/pelvis at that time showed intrahepatic ductal dilatation with contracted gallbladder containing stones. ERCP on 05/05/2018 showed evidence of stricture in the upper third of the main bile duct. At that time she underwent sphincterotomy with stenting of the main and pancreatic duct. Brushings were atypical. On a ERCP on 05/21/2018 the brushings were positive for adenocarcinoma. EUS with lymph node biopsy on 06/07/2018 showed extrahepatic disease involving 1 lymph node, which precluded transplant. Her repeat CT abdomen/pelvis on 06/15/2018 showed ill-defined soft tissue mass centered at the origin of the left intrahepatic ductal system with predominantly left intrahepatic biliary ductal dilatation. There was a suggestion of extension of soft tissue into the proximal right intrahepatic ductal system as well as the extreme proximal aspect of the common duct. There was encasement of the left portal vein with at least abutment and narrowing of the proximal right portal vein and distal aspect of the main portal vein. There was likely short segment abutment of the right hepatic artery adjacent to the level of the greatest left portal vein narrowing in the hilum. On 06/28/2018 she underwent extended left hepatectomy with resection of the extrahepatic biliary tree and portal lymphadenectomy, portal vein resection and reconstruction of the right portal venous system, and Ariella-en-Y hepaticojejunostomy to multiple right-sided ducts. At surgery she was noted have a firm mass predominantly in the left side of the liver. By intraoperative ultrasound the tumor appeared resectable, though it was noted to directly abut the portal vein bifurcation. Also noted were several firm retroportal lymph nodes which were resected with the lymphadenectomy. The ultrasound showed no evidence of other metastatic sites within the liver. Pathology showed invasive moderately differentiated adenocarcinoma predominantly involving the left hepatic duct with adjacent hepatic parenchyma, including involvement of the caudate lobe and with extension to the hilum, soft tissue around the bile duct, and common hepatic duct. Tumor was involving the left portal vein. There was extensive lymphovascular and perineural invasion present. The cauterized parenchymal margin at the caudate lobe and the cauterized radial margin around the extrahepatic portion of the bile duct were involved. There was involvement in 1 of 6 lymph nodes. In August 2018 she began adjuvant chemotherapy with gemcitabine/Xeloda. She completed 2 cycles of treatment with no adverse effects. She was then seen for a scheduled visit on 10/05/2018. At that point we had received the results of her next generation sequencing study, which showed evidence of a BRCA1 mutation. With that finding, I opted to change her chemotherapy to a [place]containing regimen. She returned on 10/21/2018 for her 1st cycle of cisplatin/gemcitabine, administered on a day 1/day 8 schedule every 21 days. She was able to tolerate it with acceptable toxicity, and she continued with cycle 2 on 11/10/2018, with cycle 3 on 12/01/2018, and with cycle 4 on 12/22/2018. On 02/08/2019 she began consolidation radiation concurrently with Xeloda for chemosensitization. She completed radiation on 03/21/2019 to a total dose of 5400 cGy. She was then managed expectantly. During that time, I had requested genetic screening, but it was denied by her insurance carrier. Her medical history is otherwise significant for anxiety/depression, but no other medical illnesses. She has a history of smoking 1 pack of cigarettes daily for 20 years. She quit smoking in June 2018. Family history is significant for a paternal aunt having had breast cancer. INTERIM HISTORY: As of her followup visit on 08/12/2021 she was feeling much better. Her restaging CT scans of the chest, abdomen, pelvis on 08/19/2021 showed interval resection of the large cystic/mucinous abdominal neoplasm. There were 2 areas of peripherally enhancing material noted in the right lower quadrant about the cecum in the area of the appendix was suspicious for residual or recurrent disease, one measuring 2.7 x 2.1 cm and the other measuring 1.9 x 1.5 cm. Additional peripherally enhancing low-attenuation nodules in the upper abdomen were suspicious for lymphadenopathy or soft tissue mucin and implants and were noted to have increased in size compared to the preoperative CT scan, the larger measuring 1.0 x 1.5 cm. Several additional small peripheral enhancing nodules along the superior margin of the abdominal incision were felt to be consistent with residual neoplasm versus postoperative fluid. She then had surgical consultation with Dr. Miquel Contreras at [facility], and at that time she also had medical oncology consultation with Dr. Giuliana Mahmood. On the review of the pathology there, it was felt that she more likely had recurrent cholangiocarcinoma as opposed to new primary appendiceal or ovarian cancer. To that end, in comparing her next generation sequencing studies from the 2018 in the 2020 surgeries, they did appear identical. With that in mind, she was recommended to begin further chemotherapy with modified FOLFOX or oxaliplatin/Xeloda following a restaging PET/CT. She began cycle 1 of modified FOLFOX on 10/22/2021. She is seen for 1 week toxicity check. Her main complaints thus far after her treatment last week have been fatigue and neuropathy. The neuropathy actually started on the day of her treatment, and it included numbness/tingling in her hands with activities and cold sensitivity, primarily affecting her mouth and hands and to a lesser extent her feet. She has been significantly fatigued, but her energy has started to nut picker in the last 1 to 2 days. Her ECOG score is 1. Her appetite has not been as good. She has not had fever or night sweats. She has had a few hot flashes. She has not had sore mouth or throat. She does not complain of cough, and she has not been having shortness of breath or chest pain. She has had some nausea, but not bad. She has ongoing problems with constipation. Bladder function has been okay. She has no significant joint or bone pain. She does not complain of headache. She occasionally has lightheadedness. Medications: She is not on any other prescription medication. Allergies: No Known Allergies. Vital Signs: Performed on Oct 29, 2021 08:47 Height - 66.00 in Weight - 168 lbs (LOW) BSA - 1.86 sq.m BMI - 27.12 Temperature - 98.5 F Pulse - 95 /min Respiration - 16 /min BP - 137/86 mm(hg) O2 Sat - 96 % Pain - 0 Fatigue - 3 Physical Examination: Constitutional - She looks pretty good generally, Eyes - Sclerae nonicteric. Conjunctivae clear, ENMT - No lesions noted in the oral cavity, Hematologic/Lymphatic - No cervical, clavicular, or axillary adenopathy, Respiratory - Lungs are clear with good air movement bilaterally, Cardiovascular - Heart rhythm is regular. There is no murmur, gallop, or rub noted, Abdomen - Soft. Liver and spleen are not enlarged. There is no abdominal mass or ascites noted and there is no inguinal adenopathy, Extremities - No edema, Neurologic - No focal neurologic deficits noted. Lab/Imaging: Test performed on Oct 22, 2021 08:45 Sodium 137 mmol/L Potassium 3.8 mmol/L Chloride 97 mmol/L CO2 29 mmol/L Anion Gap 14.8 BUN 13 mg/dL Creatinine 0.6 mg/dL Cr Clearance (Est) 139.6900 mL/min eGFR 106.3 mL/min Glucose 145 mg/dL Osmolality - Calculated 287 mOsm/kg Calcium 9.7 mg/dL Protein, Total 7.0 g/dL Albumin 4.0 g/dL Globulin 3.0 g/dL Bilirubin, Total 0.3 mg/dL ALT (SGPT) 6 U/L AST (SGOT) 11 U/L Alkaline Phosphatase 90 IU/L WBC 10.9 10 3/uL RBC 4.78 10 6/uL HGB 12.4 g/dL HCT 39.2 % MCV 82.0 fl MCH 25.9 pg MCHC 31.6 g/dL RDW 15.8 % Platelet Count 333 10 3/cmm MPV 9.6 fL Neutrophils 8.44 10 3/uL Lymphocytes 1.2 10 3/uL Monocytes 1.0 10 3/uL Eosinophils 0.2 10 3/uL Basophils 0.1 10 3/uL Neutrophil % 77.3 % Lymphocyte % 10.6 % Monocyte % 9.3 % Eosinophil % 1.8 % Basophils % 0.7 % NRBC % 0 % Problem List: 1. Hilar cholangiocarcinoma, stage DARRICK (T3, N1, M0) at initial diagnosis in June 2018. She now has evidence of recurrence in the abdomen/pelvis. 2. She has a confirmed germline BRCA1 mutation. 3. Anxiety/depression. Problems Addressed with this Encounter and Plan: Patient with hilar cholangiocarcinoma, stage DARRICK (T3, N1, M0). She underwent extended left hepatectomy with resection of the extrahepatic biliary tree and portal lymphadenectomy, portal vein resection and reconstruction of the right portal venous system, and Ariella-en-Y hepaticojejunostomy to multiple right-sided ducts on 06/28/2018. Surgical pathology showed involvement in one lymph node and positive surgical margin. In August 2018 she began postoperative adjuvant chemotherapy with gemcitabine/Xeloda in August 2018. She completed 2 cycles of treatment no adverse effects. We had then received results of her next generation sequencing study, which showed the BRCA1 mutation. With that finding, her chemotherapy was changed to a cisplatin-gemcitabine regimen. She completed 4 cycles of treatment between 10/21/2018 and 12/22/2018. She then underwent consolidation radiation concurrently with Xeloda for chemosensitization. She completed radiation on 03/21/2019 to a total dose of 5400 cGy. She was then followed expectantly. In April 2021 she was referred to Dr. Perla in [place] after she had been found on CT to have a large pelvic mass. She underwent laparotomy/radical surgical resection on 05/17/2021. There were multiple sites of involvement within the abdomen and pelvis including both ovaries and appendix. Pathology showed mucinous adenocarcinoma with tumor cells positive for CK7, CK20, and CDX2 and negative for PAX8 and ER. Initially it was thought to be either from a primary appendiceal versus primary ovarian carcinoma. She then had surgical consultation with Dr. Miquel Contreras at [facility], and at that time she also had medical oncology consultation with Dr. Giuliana Mahmood. On their review of the pathology, it was felt that she more likely had recurrent cholangiocarcinoma as opposed to new primary appendiceal or ovarian cancer. To that end, in comparing her next generation sequencing studies from the 2018 in the 2020 surgeries, they did appear identical. With that in mind, she was recommended to begin further chemotherapy with modified FOLFOX or oxaliplatin/Xeloda following a restaging PET/CT. She underwent placement of Port-A-Cath venous access device and on 10/22/2028 she began cycle 1 of modified FOLFOX. Toxicities have included fatigue, nausea/anorexia, and neuropathy. Thus far none of it has been severe, but the neuropathy is significant enough that she will require dose adjustments with the second cycle, for which she is scheduled to return in 1 week. In the meantime, we will have her start dronabinol 5 mg twice daily for the nausea/anorexia. Signed By: Kevon Holt M.D. <<Signature on File>>
== END 2021-10-29 08:01 | disposition home or self-care (01) ==
PROVIDERS: PCP Emergency Medicine; Visit Provider Internal Medicine Medical Oncology
DX: C22.1 Intrahepatic bile duct carcinoma (principal); C79.89 Secondary malignant neoplasm of other specified sites; R97.8 Other abnormal tumor markers; F41.9 Anxiety disorder, unspecified; F32.A Depression, unspecified; Z79.899 Other long term (current) drug therapy; Z92.3 Personal history of irradiation; Z92.21 Personal history of antineoplastic chemotherapy
CPT/HCPCS: 99214

== ENCOUNTER 2021-11-05 09:33 | Outpatient (CLI) | payer OTHER, SELFPAY ==
[2021-11-05 10:35] LABS: Basophils # 0.1 10^3/uL (0.0-0.1); Basophils % 0.5 %; Eosinophils # 0.2 10^3/uL (0.0-0.8); Hematocrit 36.5 % (37.0-47.0); Hemoglobin 11.3 g/dL (11.5-15.3); Lymphocytes % 10.4 %; Mean Corpuscular Hemoglobin 25.9 pg (28.0-34.0); Mean Corpuscular Volume 83.7 fl (81-99); Mean Platelet Volume 9.9 fL (7.4-10.4); Monocytes # 1.1 10^3/uL (0.2-0.9); Monocytes % 12.5 %; Neutrophils # 6.77 10^3/uL (1.8-7.7); Neutrophils % 74.2 %; Nucleated Red Blood Cells % 0 %; Platelet Count 304 10^3/cmm (130-400); Red Blood Count 4.36 10^6/uL (4.1-5.3); Red Cell Distribution Width 15.1 % (12.1-15.1); White Blood Count 9.1 10^3/uL (4.0-10.0)
[2021-11-05 10:43] LABS: Alanine Aminotransferase 10 U/L (0-33); Albumin Level 3.7 g/dL (3.5-5.2); Alkaline Phosphatase 97 IU/L (35-105); Anion Gap 15.8 (5-19); Aspartate Amino Transferase 17 U/L (0-32); Blood Urea Nitrogen 7 mg/dL (6-20); Calcium 9.4 mg/dL (8.5-10.5); Carbon Dioxide 30 mmol/L (22-29); Chloride 96 mmol/L (98-107); Globulin 3.6 g/dL (1.3-4.6); Glomerular Filtration Rate 88.9 mL/min (90-130); Glucose 166 mg/dL (65-115); Osmolality Calculated 290 mOsm/kg (285-295); Sodium 139 mmol/L (136-145); Total Bilirubin 0.2 mg/dL (0.15-1.2); Total Protein 7.3 g/dL (6.6-8.7)
[2021-11-05 10:50] LABS: Potassium 2.8 mmol/L (3.5-5.1)
[2021-11-05] MEDS: dextrose 5% 250 ML 75 ML IV ×2 (11:30→12:35)
[2021-11-05] MEDS: palonosetron 0.25 mg/5 mL SDV IV (11:30)
[2021-11-05] MEDS: sodium chloride 0.9% 250 ML 25 ML IV (12:20)
[2021-11-05] MEDS: potassium chloride premix 100 ML 50 MEQ IV (12:20)
[2021-11-05] MEDS: lidocaine 1% INJ 20 mL IV (13:00)
== END 2021-11-05 09:34 | disposition home or self-care (01) ==
LOC: ONCMED 09:37
PROVIDERS: PCP Emergency Medicine; Visit Provider Nurse Practitioner
DX: Z51.11 Encounter for antineoplastic chemotherapy (principal); C22.1 Intrahepatic bile duct carcinoma; C79.89 Secondary malignant neoplasm of other specified sites; Z79.899 Other long term (current) drug therapy
CPT/HCPCS: 80053; 85025; 96367; 96368; 96375; 96413; 96415; 96416; 96417; J0640; J1100; J2469; J3480; J7050; J9190; J9263

== ENCOUNTER 2021-11-07 14:21 | Outpatient (CLI) | payer OTHER, SELFPAY | END 2021-11-07 14:22 | disposition home or self-care (01) | LOC: ONCMED 14:23 | PROVIDERS: PCP Emergency Medicine; Visit Provider Internal Medicine Medical Oncology | DX: Z45.2 Encounter for adjustment and management of vascular access device (principal) | CPT/HCPCS: 96523 ==

== ENCOUNTER 2021-11-21 | Outpatient (CLI) | payer OTHER, SELFPAY | END 2021-11-21 23:00 | disposition home or self-care (01) | LOC: ONCMED 04-29 22:24 | PROVIDERS: PCP Emergency Medicine; Visit Provider Nurse Practitioner | DX: Z45.2 Encounter for adjustment and management of vascular access device (principal) | CPT/HCPCS: 96523 ==

== ENCOUNTER 2021-11-21 10:07 | Outpatient (RCR) | payer OTHER, SELFPAY ==
[2021-11-19 09:04] LABS: Basophils # 0.1 10^3/uL (0.0-0.1); Eosinophils # 0.3 10^3/uL (0.0-0.8); Eosinophils % 3.8 %; Hematocrit 38.7 % (37.0-47.0); Hemoglobin 12.4 g/dL (11.5-15.3); Lymphocytes % 13.7 %; Mean Corpuscular Hemoglobin 26.7 pg (28.0-34.0); Mean Corpuscular Volume 83.2 fl (81-99); Mean Platelet Volume 10.4 fL (7.4-10.4); Monocytes # 0.9 10^3/uL (0.2-0.9); Monocytes % 13.3 %; Neutrophils # 4.71 10^3/uL (1.8-7.7); Neutrophils % 67.9 %; Nucleated Red Blood Cells % 0 %; Platelet Count 215 10^3/cmm (130-400); Red Blood Count 4.65 10^6/uL (4.1-5.3); Red Cell Distribution Width 16.4 % (12.1-15.1); White Blood Count 6.9 10^3/uL (4.0-10.0)
[2021-11-19 09:28] LABS: Alanine Aminotransferase 15 U/L (0-33); Albumin Level 3.8 g/dL (3.5-5.2); Alkaline Phosphatase 127 IU/L (35-105); Anion Gap 15.4 (5-19); Aspartate Amino Transferase 21 U/L (0-32); Blood Urea Nitrogen 7 mg/dL (6-20); Calcium 9.8 mg/dL (8.5-10.5); Carbon Dioxide 28 mmol/L (22-29); Chloride 99 mmol/L (98-107); Globulin 3.1 g/dL (1.3-4.6); Glomerular Filtration Rate 106.3 mL/min (90-130); Glucose 159 mg/dL (65-115); Osmolality Calculated 289 mOsm/kg (285-295); Potassium 3.4 mmol/L (3.5-5.1); Sodium 139 mmol/L (136-145); Total Bilirubin 0.3 mg/dL (0.15-1.2); Total Protein 6.9 g/dL (6.6-8.7)
[2021-11-19] MEDS: dextrose 5% 250 ML 75 ML IV (10:45)
[2021-11-19] MEDS: palonosetron 0.25 mg/5 mL SDV IV (10:55)
--- NOTE | 2021-11-20 08:43 | ONC FU_ITS ---
Kadie Joseph Progress Note Patient: Stefania Teresa Unit #: [id number]: [id number] Dicatated By: Kadie Joseph N.P.Date of Visit:Nov 19, 2021 Onc MED Follow-up/Prog Note Chief Complaint: Cholangiocarcinoma. History of Present Illness: This is a 51 year-old woman with hilar cholangiocarcinoma, stage DARRICK (T3, N1, M0) at initial diagnosis in June 2018. She subsequently had recurrence in the abdomen/pelvis. She underwent surgical resection for the cholangiocarcinoma in June 2018. She received postoperative adjuvant chemotherapy followed by chemoradiation, completed in March 2019. As of her follow-up visit in November 2020 she appeared stable clinically with no evidence of recurrence of the cholangiocarcinoma. In April 2021 she was referred to Dr. Perla in [place] after she had been found on CT to have a large pelvic mass. On 05/17/2021 she underwent exploratory laparotomy for radical surgical resection of suspected ovarian cancer. The procedure included bilateral salpingo-oophorectomy, total abdominal hysterectomy, partial sigmoid colectomy, omentectomy, appendectomy, and excision of multiple tumor nodules. Grossly she was noted to have a multicystic mass with a large friable area of necrosis on the surface. There was involvement by attachment to multiple loops of small bowel and mesentery and peritoneal surface in the pelvis. Some of the multi cysts were ruptured with removal. Other sites of involvement included the bladder peritoneum, right anterior abdominal wall, surface disease on the sigmoid colon as well as plaque-like nodule in the sigmoid colon which was suspicious for infiltration into the muscularis. There were nodules along the left pericolic gutter, sigmoid colon, right pericolic gutter, sigmoid mesentery, right pelvic peritoneum, and right anterior abdominal wall peritoneum. The omentum also appeared very suspicious. Pathology showed mucinous adenocarcinoma involving virtually all of the submitted specimens, including both ovaries, omentum, appendix, sigmoid colon serosa, bladder peritoneum, right pelvic and right abdominal wall peritoneum, anterior abdominal wall, and numerous other nodules. Grossly the right ovary measured 27.5 x 26 x 16 cm and the left ovary measured 10.5 x 9 x 7 cm. By IHC the tumor cells from the appendix and ovary were positive for CK7, CK20, and CDX2. They were negative for PAX8 and ER. It was unclear whether this was primary appendiceal carcinoma with ovarian metastases or vice versa. On further review of the pathology by Dr. 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 On next generation sequencing, the tumor was noted to harbor the BRCA1 mutation. There were no other actionable mutations identified. In particular, KRAS, NRAS, and BRAF mutations were not detected. The tumor mutational burden was noted to be low at 7 mut/Mb and the PD-L1 expression was negative (0%). Genomic loss of heterozygosity was noted to be high at 21%. Her subsequent genetic screening did confirm germline BRCA1 mutation ([id number]). I had seen her for a follow-up visit on 06/06/2021. At that point she was still recovering from the surgery, and she was not interested in pursuing any further treatment. Her cholangiocarcinoma was discovered in April 2018 when she had presented with obstructive jaundice. Her CT abdomen/pelvis at that time showed intrahepatic ductal dilatation with contracted gallbladder containing stones. ERCP on 05/05/2018 showed evidence of stricture in the upper third of the main bile duct. At that time she underwent sphincterotomy with stenting of the main and pancreatic duct. Brushings were atypical. On a ERCP on 05/21/2018 the brushings were positive for adenocarcinoma. EUS with lymph node biopsy on 06/07/2018 showed extrahepatic disease involving 1 lymph node, which precluded transplant. Her repeat CT abdomen/pelvis on 06/15/2018 showed ill-defined soft tissue mass centered at the origin of the left intrahepatic ductal system with predominantly left intrahepatic biliary ductal dilatation. There was a suggestion of extension of soft tissue into the proximal right intrahepatic ductal system as well as the extreme proximal aspect of the common duct. There was encasement of the left portal vein with at least abutment and narrowing of the proximal right portal vein and distal aspect of the main portal vein. There was likely short segment abutment of the right hepatic artery adjacent to the level of the greatest left portal vein narrowing in the hilum. On 06/28/2018 she underwent extended left hepatectomy with resection of the extrahepatic biliary tree and portal lymphadenectomy, portal vein resection and reconstruction of the right portal venous system, and Ariella-en-Y hepaticojejunostomy to multiple right-sided ducts. At surgery she was noted have a firm mass predominantly in the left side of the liver. By intraoperative ultrasound the tumor appeared resectable, though it was noted to directly abut the portal vein bifurcation. Also noted were several firm retroportal lymph nodes which were resected with the lymphadenectomy. The ultrasound showed no evidence of other metastatic sites within the liver. Pathology showed invasive moderately differentiated adenocarcinoma predominantly involving the left hepatic duct with adjacent hepatic parenchyma, including involvement of the caudate lobe and with extension to the hilum, soft tissue around the bile duct, and common hepatic duct. Tumor was involving the left portal vein. There was extensive lymphovascular and perineural invasion present. The cauterized parenchymal margin at the caudate lobe and the cauterized radial margin around the extrahepatic portion of the bile duct were involved. There was involvement in 1 of 6 lymph nodes. In August 2018 she began adjuvant chemotherapy with gemcitabine/Xeloda. She completed 2 cycles of treatment with no adverse effects. She was then seen for a scheduled visit on 10/05/2018. At that point we had received the results of her next generation sequencing study, which showed evidence of a BRCA1 mutation. With that finding, I opted to change her chemotherapy to a jena-containing regimen. She returned on 10/21/2018 for her 1st cycle of cisplatin/gemcitabine, administered on a day 1/day 8 schedule every 21 days. She was able to tolerate it with acceptable toxicity, and she continued with cycle 2 on 11/10/2018, with cycle 3 on 12/01/2018, and with cycle 4 on 12/22/2018. On 02/08/2019 she began consolidation radiation concurrently with Xeloda for chemosensitization. She completed radiation on 03/21/2019 to a total dose of 5400 cGy. She was then managed expectantly. During that time, I had requested genetic screening, but it was denied by her insurance carrier. Her medical history is otherwise significant for anxiety/depression, but no other medical illnesses. She has a history of smoking 1 pack of cigarettes daily for 20 years. She quit smoking in June 2018. Family history is significant for a paternal aunt having had breast cancer. INTERIM HISTORY: As of her followup visit on 08/12/2021 she was feeling much better. Her restaging CT scans of the chest, abdomen, pelvis on 08/19/2021 showed interval resection of the large cystic/mucinous abdominal neoplasm. There were 2 areas of peripherally enhancing material noted in the right lower quadrant about the cecum in the area of the appendix was suspicious for residual or recurrent disease, one measuring 2.7 x 2.1 cm and the other measuring 1.9 x 1.5 cm. Additional peripherally enhancing low-attenuation nodules in the upper abdomen were suspicious for lymphadenopathy or soft tissue mucin and implants and were noted to have increased in size compared to the preoperative CT scan, the larger measuring 1.0 x 1.5 cm. Several additional small peripheral enhancing nodules along the superior margin of the abdominal incision were felt to be consistent with residual neoplasm versus postoperative fluid. She then had surgical consultation with Dr. Miquel Contreras at [facility], and at that time she also had medical oncology consultation with Dr. Giuliana Mahmood. On the review of the pathology there, it was felt that she more likely had recurrent cholangiocarcinoma as opposed to new primary appendiceal or ovarian cancer. To that end, in comparing her next generation sequencing studies from the 2018 in the 2020 surgeries, they did appear identical. With that in mind, she was recommended to begin further chemotherapy with modified FOLFOX or oxaliplatin/Xeloda following a restaging PET/CT. She began cycle 1 of modified FOLFOX on 10/22/2021. Patient presents today accompanied by her family. She complains of fatigue but she is still able to perform some activities. Her appetite has not been very good although it has improved with dronabinol. She denies fever, chills, night sweats. No sinus drainage or mouth sores. She did state that she felt like she could not breathe and that her mouth and tongue swelling after her last dose of oxaliplatin. She also experience shortness of breath after last treatment with oxaliplatin. She took some Benadryl and that did help but she is very nervous about continuing the medication. She going nausea quite often. She has no diarrhea but she does experience constipation that is well controlled with [id number] stool softeners. She does not experience any urinary symptoms. She denies joint or bone pain. No headaches or dizziness. She has numbness and paresthesias in her bilateral upper extremities and lower extremities. She states her lips have also been tingly and her neck although that has improved. She has trouble with sleep at night also which could be contributing to her extreme fatigue. Review Of Symptoms: See above Past Medical History: She has had no prior medical illnesses. Past Surgical History: Caesarean section ERCP on 05/21/2018 and on 06/07/2018 Extended left hepatectomy with resection of extrahepatic biliary tree and portal lymphadenectomy in 2018 ERCP with stent placement to the bile duct and pancreatic duct in 2018 Allergies: No Known Allergies. Medications: CeleXA 1 Tablet (of 20 mg) Oral daily Dronabinol 1 Capsule (of 5 mg) Oral b.i.d. LORazepam 0.5 - 1 Tablet (of 1 mg) Oral t.i.d. PRN Potassium Chloride Radha ER 1 Tablet (of 10 meq) Tablet, controlled release Oral b.i.d. Prochlorperazine Maleate 1 Tablet (of 10 mg) Oral q 4 hours PRN Family History: Ms. Teresa's mother is alive: atrial fibril. Ms. Teresa's father at age 73: congestive heart failure. Ms. Teresa has 2 brothers: 2 alive. Father at age 73 with pneumonia and congestive heart failure. Mother still living and in good health at age 75. A paternall aunt had breast cancer. Social History: Ms. Teresa is and she is a [employer]. She is a daily smoker who has smoked 1.0 pack/day for 3 years. She has no history of drinking. She has indicated exposure to the following products: cigarettes. Ms. Teresa reports the following support systems: lives with spouse, significant other, family, or friends. She has a history of smoking 1 pack of cigarettes daily for 20 years. She quit smoking in June 2018. She does not drink alcohol. Patient reports smoking 1 pack per day 08/12/21. Physical Examination: Performed on Nov 19, 2021 10:04: Height - 66.00 in, Weight - 170.2 lbs (HIGH), BSA - 1.87 sq.m, BMI - 27.47, Temperature - 97.9 F (LOW), Pulse - 107 /min (HIGH), Respiration - 16 /min, BP - 135/81 mm(hg), O2 Sat - 99 %, Pain - 0, and Fatigue - 5. Performance Status: 1 - No physically strenuous activity, but ambulatory and able to carry out light or sedentary work (e.g. office work, light house work). (ECOG) Constitutional Alert, cooperative, oriented. Mood and affect appropriate. Appears close to chronological age. Well nourished. Well developed. Respiratory Lungs are clear to auscultation without rhonchi or wheezing. Cardiovascular Regular rate and rhythm of heart without murmurs, gallops or rubs. Abdomen Non-tender, non-distended, no masses, ascites or hepatosplenomegaly. Good bowel sounds. No guarding or rebound tenderness. Extremities No visible deformities, no cyanosis, clubbing or edema. Pulses 3+ and equal bilaterally. Musculoskeletal No tenderness or swelling, normal range of motion without obvious weakness. Neurologic Numbness in all extremities Psychiatric Alert and oriented times three. Coherent speech. Verbalizes understanding of our discussions today. Laboratory: Test performed on Nov 19, 2021 08:55 Sodium 139 mmol/L Potassium 3.4 mmol/L Chloride 99 mmol/L CO2 28 mmol/L Anion Gap 15.4 BUN 7 mg/dL Creatinine 0.6 mg/dL Cr Clearance (Est) 138.5600 mL/min eGFR 106.3 mL/min Glucose 159 mg/dL Osmolality - Calculated 289 mOsm/kg Calcium 9.8 mg/dL Protein, Total 6.9 g/dL Albumin 3.8 g/dL Globulin 3.1 g/dL Bilirubin, Total 0.3 mg/dL ALT (SGPT) 15 U/L AST (SGOT) 21 U/L Alkaline Phosphatase 127 IU/L WBC 6.9 10 3/uL RBC 4.65 10 6/uL HGB 12.4 g/dL HCT 38.7 % MCV 83.2 fl MCH 26.7 pg MCHC 32.0 g/dL RDW 16.4 % Platelet Count 215 10 3/cmm MPV 10.4 fL Neutrophils 4.71 10 3/uL Lymphocytes 1.0 10 3/uL Monocytes 0.9 10 3/uL Eosinophils 0.3 10 3/uL Basophils 0.1 10 3/uL Neutrophil % 67.9 % Lymphocyte % 13.7 % Monocyte % 13.3 % Eosinophil % 3.8 % Basophils % 1.0 % NRBC % 0 % Impression: 1. Hilar cholangiocarcinoma, stage DARRICK (T3, N1, M0) at initial diagnosis in June 2018. She now has evidence of recurrence in the abdomen/pelvis. 2. She has a confirmed germline BRCA1 mutation. 3. Anxiety/depression. Plan: Patient with hilar cholangiocarcinoma, stage DARRICK (T3, N1, M0). She underwent extended left hepatectomy with resection of the extrahepatic biliary tree and portal lymphadenectomy, portal vein resection and reconstruction of the right portal venous system, and Ariella-en-Y hepaticojejunostomy to multiple right-sided ducts on 06/28/2018. Surgical pathology showed involvement in one lymph node and positive surgical margin. In August 2018 she began postoperative adjuvant chemotherapy with gemcitabine/Xeloda in August 2018. She completed 2 cycles of treatment no adverse effects. We had then received results of her next generation sequencing study, which showed the BRCA1 mutation. With that finding, her chemotherapy was changed to a cisplatin-gemcitabine regimen. She completed 4 cycles of treatment between 10/21/2018 and 12/22/2018. She then underwent consolidation radiation concurrently with Xeloda for chemosensitization. She completed radiation on 03/21/2019 to a total dose of 5400 cGy. She was then followed expectantly. In April 2021 she was referred to Dr. Perla in [place] after she had been found on CT to have a large pelvic mass. She underwent laparotomy/radical surgical resection on 05/17/2021. There were multiple sites of involvement within the abdomen and pelvis including both ovaries and appendix. Pathology showed mucinous adenocarcinoma with tumor cells positive for CK7, CK20, and CDX2 and negative for PAX8 and ER. Initially it was thought to be either from a primary appendiceal versus primary ovarian carcinoma. She then had surgical consultation with Dr. Miquel Contreras at [facility], and at that time she also had medical oncology consultation with Dr. Giuliana Mahmood. On their review of the pathology, it was felt that she more likely had recurrent cholangiocarcinoma as opposed to new primary appendiceal or ovarian cancer. To that end, in comparing her next generation sequencing studies from the 2018 in the 2020 surgeries, they did appear identical. With that in mind, she was recommended to begin further chemotherapy with modified FOLFOX or oxaliplatin/Xeloda following a restaging PET/CT. She underwent placement of Port-A-Cath venous access device and on 10/22/2028 she began cycle 1 of modified FOLFOX. Toxicities have included fatigue, nausea/anorexia, and neuropathy. Thus far none of it has been severe, but the neuropathy is significant enough that she will require dose adjustments with the second cycle, for which she is scheduled to return in 1 week. Patient returns to the clinic today for cycle 3 of modified FOLFOX. Her toxicities have included fatigue, nausea, and neuropathy which seem to be worse according to the patient after second treatment. She received a dose reduction for cycle. She states that she experienced numbness around her mouth and also tongue swelling and trouble swallowing. She took Benadryl which helped improve symptoms but the numbness and tingling continued for several days. She also experienced neuropathy in her hands and feet. She continues to have sensitivity to cold in her hands although not as severe as it was immediately following treatment. Her appetite has improved since starting on dronabinol. Due to the complaints of trouble swallowing and tongue swelling, we will hold oxaliplatin today and have patient follow-up with Dr. Holt to determine further course of treatment. She will return to the clinic in 2 weeks with CBC and CMP. Signed By: Kadie Joseph N.P. <<Signature on File>>
== END 2021-11-30 23:59 | disposition home or self-care (01) ==
LOC: ONCMED 10:07
PROVIDERS: PCP Emergency Medicine; Visit Provider Nurse Practitioner Family
DX: Z51.11 Encounter for antineoplastic chemotherapy (principal); C65.2 Malignant neoplasm of left renal pelvis; C78.7 Secondary malignant neoplasm of liver and intrahepatic bile duct; C79.89 Secondary malignant neoplasm of other specified sites; R97.8 Other abnormal tumor markers; F41.9 Anxiety disorder, unspecified; F32.A Depression, unspecified; Z79.899 Other long term (current) drug therapy
CPT/HCPCS: 80053; 85025; 96367; 96413; 96416; 99215; J0640; J1100; J2469; J9190

== ENCOUNTER 2021-12-31 08:00 | Oncology outpatient (recurring) (ONCR) | payer OTHER, SELFPAY ==
[2021-12-03 09:05] LABS: Basophils # 0.1 10^3/uL (0.0-0.1); Basophils % 1.1 %; Eosinophils # 0.3 10^3/uL (0.0-0.8); Eosinophils % 4.8 %; Hematocrit 38.4 % (37.0-47.0); Hemoglobin 11.9 g/dL (11.5-15.3); Lymphocytes # 1.1 10^3/uL (0.8-4.8); Mean Corpuscular Volume 87.1 fl (81-99); Mean Platelet Volume 9.5 fL (7.4-10.4); Monocytes # 0.8 10^3/uL (0.2-0.9); Monocytes % 11.2 %; Neutrophils # 4.75 10^3/uL (1.8-7.7); Neutrophils % 66.6 %; Nucleated Red Blood Cells % 0 %; Platelet Count 266 10^3/cmm (130-400); Red Blood Count 4.41 10^6/uL (4.1-5.3); Red Cell Distribution Width 18.1 % (12.1-15.1); White Blood Count 7.1 10^3/uL (4.0-10.0)
[2021-12-03 09:19] LABS: Alanine Aminotransferase 10 U/L (0-33); Albumin Level 3.7 g/dL (3.5-5.2); Alkaline Phosphatase 121 IU/L (35-105); Anion Gap 17.6 (5-19); Aspartate Amino Transferase 18 U/L (0-32); Blood Urea Nitrogen 7 mg/dL (6-20); Calcium 9.3 mg/dL (8.5-10.5); Carbon Dioxide 25 mmol/L (22-29); Chloride 100 mmol/L (98-107); Globulin 3.3 g/dL (1.3-4.6); Glomerular Filtration Rate 131.1 mL/min (90-130); Glucose 144 mg/dL (65-115); Osmolality Calculated 289 mOsm/kg (285-295); Potassium 3.6 mmol/L (3.5-5.1); Sodium 139 mmol/L (136-145); Total Bilirubin 0.3 mg/dL (0.15-1.2)
[2021-12-03] MEDS: palonosetron 0.25 mg/5 mL SDV IVP (11:25)
[2021-12-03] MEDS: dextrose 5% 250 ML 75 ML IV (11:25)
[2021-12-03] MEDS: leucovorin 760 MG in dextrose 5% 250 ML 652 MG IV (11:49)
[2021-12-03 12:55] VITALS: BP 112/78; PULSE 65; RESP 18; TEMP 36.6; O2SAT 98
[2021-12-03 14:06] VITALS: BP 112/78; PULSE 65; RESP 18; TEMP 36.6; O2SAT 98
[2021-12-05 11:05] VITALS: BP 136/80; PULSE 105; RESP 18; TEMP 36.4; O2SAT 98
[2021-12-17 09:43] LABS: Basophils # 0.1 10^3/uL (0.0-0.1); Basophils % 0.7 %; Eosinophils # 0.2 10^3/uL (0.0-0.8); Eosinophils % 3.3 %; Hematocrit 38.6 % (37.0-47.0); Hemoglobin 11.9 g/dL (11.5-15.3); Lymphocytes % 14.7 %; Mean Corpuscular HGB Conc 30.8 g/dL (30.0-36.0); Mean Corpuscular Hemoglobin 27.4 pg (28.0-34.0); Mean Corpuscular Volume 88.7 fl (81-99); Mean Platelet Volume 9.5 fL (7.4-10.4); Monocytes # 0.8 10^3/uL (0.2-0.9); Monocytes % 11.1 %; Neutrophils # 4.84 10^3/uL (1.8-7.7); Neutrophils % 69.8 %; Nucleated Red Blood Cells % 0 %; Platelet Count 243 10^3/cmm (130-400); Red Blood Count 4.35 10^6/uL (4.1-5.3); Red Cell Distribution Width 18.7 % (12.1-15.1); White Blood Count 6.9 10^3/uL (4.0-10.0)
[2021-12-17 10:19] LABS: Alanine Aminotransferase 10 U/L (0-33); Albumin Level 3.7 g/dL (3.5-5.2); Alkaline Phosphatase 108 IU/L (35-105); Anion Gap 13.4 (5-19); Aspartate Amino Transferase 16 U/L (0-32); Blood Urea Nitrogen 11 mg/dL (6-20); Calcium 9.1 mg/dL (8.5-10.5); Carbon Dioxide 24 mmol/L (22-29); Chloride 105 mmol/L (98-107); Globulin 3.1 g/dL (1.3-4.6); Glomerular Filtration Rate 169.7 mL/min (90-130); Glucose 139 mg/dL (65-115); Osmolality Calculated 290 mOsm/kg (285-295); Potassium 3.4 mmol/L (3.5-5.1); Sodium 139 mmol/L (136-145); Total Bilirubin 0.2 mg/dL (0.15-1.2); Total Protein 6.8 g/dL (6.6-8.7)
[2021-12-17] MEDS: dextrose 5% 250 ML 75 ML IV (11:43)
[2021-12-17] MEDS: palonosetron 0.25 mg/5 mL SDV IVP (12:04)
[2021-12-17] MEDS: leucovorin 760 MG in dextrose 5% 250 ML 81.5 MG IV (12:11)
[2021-12-17 16:38] VITALS: BP 138/78; PULSE 80; RESP 18; TEMP 37; O2SAT 98
[2021-12-31 08:37] VITALS: BMI 26.6
[2021-12-31 08:57] LABS: Basophils # 0.1 10^3/uL (0.0-0.1); Eosinophils # 0.2 10^3/uL (0.0-0.8); Lymphocytes # 0.9 10^3/uL (0.8-4.8); Mean Platelet Volume 10.8 fL (7.4-10.4); Monocytes # 1.1 10^3/uL (0.2-0.9); Nucleated Red Blood Cells % 0 %; Platelet Count 129 10^3/cmm (130-400)
[2021-12-31 09:03] LABS: Hemoglobin 12.5 g/dL (11.5-15.3); Mean Corpuscular HGB Conc 32.9 g/dL (30.0-36.0); Mean Corpuscular Hemoglobin 28.8 pg (28.0-34.0); Mean Corpuscular Volume 87.6 fl (81-99); Red Blood Count 4.34 10^6/uL (4.1-5.3); White Blood Count 6.3 10^3/uL (4.0-10.0)
[2021-12-31 09:04] LABS: Basophils % 1.1 %; Lymphocytes % 14.4 %; Monocytes % 17.6 %; Neutrophils % 63.4 %; Red Cell Distribution Width 19.1 % (12.1-15.1)
[2021-12-31 09:15] LABS: Alanine Aminotransferase 32 U/L (0-33); Albumin Level 3.6 g/dL (3.5-5.2); Alkaline Phosphatase 153 IU/L (35-105); Aspartate Amino Transferase 39 U/L (0-32); Blood Urea Nitrogen 11 mg/dL (6-20); Calcium 9.2 mg/dL (8.5-10.5); Carbon Dioxide 26 mmol/L (22-29); Chloride 103 mmol/L (98-107); Globulin 3.1 g/dL (1.3-4.6); Glomerular Filtration Rate 130.6 mL/min (90-130); Glucose 154 mg/dL (65-115); Osmolality Calculated 290 mOsm/kg (285-295); Sodium 139 mmol/L (136-145); Total Bilirubin 0.3 mg/dL (0.15-1.2); Total Protein 6.7 g/dL (6.6-8.7)
[2021-12-31 10:13] LABS: Slide Review Slide Review Perform
[2021-12-31] MEDS: palonosetron 0.25 mg/5 mL SDV IVP (10:37)
[2021-12-31] MEDS: dextrose 5% 250 ML 75 ML IV (10:37)
[2021-12-31] MEDS: leucovorin 760 MG in dextrose 5% 250 ML 81.5 MG IV (11:25)
== END 2021-12-31 23:59 | disposition home or self-care (01) ==
PROVIDERS: Nurse Practitioner Family; PCP Emergency Medicine; Visit Provider Internal Medicine Medical Oncology
DX: Z51.11 Encounter for antineoplastic chemotherapy (principal); C18.1 Malignant neoplasm of appendix; C22.1 Intrahepatic bile duct carcinoma; C79.89 Secondary malignant neoplasm of other specified sites; R53.82 Chronic fatigue, unspecified; D70.1 Agranulocytosis secondary to cancer chemotherapy; T45.1X5A Adverse effect of antineoplastic and immunosuppressive drugs, initial encounter; Z79.899 Other long term (current) drug therapy
CPT/HCPCS: 36591; 80053; 85025; 96367; 96368; 96375; 96411; 96413; 96415; 96416; 96523; J0640; J1100; J2469; J9190; J9263

== ENCOUNTER 2022-01-28 08:00 | Oncology outpatient (recurring) (ONCR) | payer OTHER, SELFPAY ==
[2022-01-02 14:13] VITALS: BP 98/73; PULSE 100; RESP 18; TEMP 36.9; O2SAT 97
--- NOTE | 2022-01-06 13:22 | CT_ITS ---
WS: [id number] CT CHEST, ABDOMEN AND PELVIS WITH CONTRAST. HISTORY: FOLLOW UP/RECURRENT CHOLANGIOCARCINOMA TECHNIQUE: Contiguous 5 mm axial imaging performed through the chest, abdomen and pelvis with IV cont rast, oral contrast has been provided. Coronal and sagittal reformats chest. Coronal and sagittal ref ormats through the abdomen and pelvis. All CT scans at [facility] use at least one of these d ose optimization techniques: automated exposure control; mA and/or kV adjustment per patient size (in cludes targeted exams where dose is matched to clinical indication); or iterative reconstruction. CONTRAST: Omnipaque 300; 95 mL IV. DLP: 1421.61 mGy.cm COMPARISON: 08/19/2021 and 05/14/[address]: Lung apices are not included on this examination. Lungs are well-aerated. There are a few b enign granulomata which are stable. No new pulmonary mass or nodule. Mild atherosclerosis aorta. Norm al size pulmonary artery. No mediastinal or hilar lymph nodes. No axillary lymph node. Heart is ousmane l size. Small hiatal hernia. Abdomen CT: Status post resection of the LEFT hepatic lobe and prior cholecystectomy. Small amount of pneumobilia. There is a hypoechoic lesion in the periphery of the liver measuring 7 mm which was pre sent in 06/07/2020 with very minimal increase in size. No new lesions within the liver. The portal vei n is patent. Normal size spleen. Mild pancreatic atrophy. Mildly thickened RIGHT adrenal gland simila r to the prior study. No LEFT adrenal lesions. No renal obstruction. Mild atherosclerosis aorta. Stomach is markedly distended with food products but no identifiable mass or outlet obstruction seen. Cystic mass with thick wall involving the fundus of the stomach measures 3.0 x 2.5 cm with minimal in creased in size since the prior study. There is an additional mesenteric nodule just anterior to the IVC measuring 1.4 x 1.1 cm, no significant increase in size. There is an additional spiculated soft t issue nodule in the RIGHT lower quadrant adjacent to several small bowel loops measuring 2.0 x 2.3 cm which is smaller. No ascites. Anastomotic sutures near the sigmoid are unchanged. Overall improving but persistent soft tissue deposit which is probably metastatic. Pelvic CT: No free fluid in the pelvis. Urinary bladder is nondistended. No osteoblastic or osteolytic bone lesions are identified. CT/CT chest abd pel w con* IMPRESSION: 1. No pulmonary mass or nodule or adenopathy identified. 2. Status post LEFT hepatic resection and cholecystectomy. 3. Stable 8 mm low-attenuation lesion in the RIGHT lobe of the liver. Stable p neumobilia. 4. Cystic mass with peripherally enhancing wall in the upper abdomen inseparab le from the stomach mucosa and additional nodule just anterior to the IVC. Thes e appear slightly different today but only minimally increased in size. Recomme nd continue close follow-up. 5. RIGHT lower quadrant spiculated soft tissue metastatic site appears improve d since 08/19/2021.
[2022-01-06] MEDS: iohexol 300 mg/mL 100 mL Btl IV (15:44)
[2022-01-14 08:49] LABS: Basophils # 0.1 10^3/uL (0.0-0.1); Basophils % 0.9 %; Eosinophils # 0.2 10^3/uL (0.0-0.8); Eosinophils % 3.3 %; Hematocrit 37.6 % (37.0-47.0); Hemoglobin 12.4 g/dL (11.5-15.3); Lymphocytes # 0.8 10^3/uL (0.8-4.8); Lymphocytes % 15.5 %; Mean Corpuscular Hemoglobin 28.9 pg (28.0-34.0); Mean Corpuscular Volume 87.6 fl (81-99); Mean Platelet Volume 11.1 fL (7.4-10.4); Monocytes # 1.2 10^3/uL (0.2-0.9); Monocytes % 21.9 %; Neutrophils # 3.15 10^3/uL (1.8-7.7); Nucleated Red Blood Cells % 0 %; Platelet Count 133 10^3/cmm (130-400); Red Blood Count 4.29 10^6/uL (4.1-5.3); Red Cell Distribution Width 19.3 % (12.1-15.1); White Blood Count 5.4 10^3/uL (4.0-10.0)
[2022-01-14 09:08] LABS: Alanine Aminotransferase 14 U/L (0-33); Albumin Level 3.4 g/dL (3.5-5.2); Alkaline Phosphatase 151 IU/L (35-105); Anion Gap 13.8 (5-19); Aspartate Amino Transferase 22 U/L (0-32); Blood Urea Nitrogen 9 mg/dL (6-20); Calcium 8.9 mg/dL (8.5-10.5); Carbon Dioxide 27 mmol/L (22-29); Chloride 102 mmol/L (98-107); Globulin 3.1 g/dL (1.3-4.6); Glucose 131 mg/dL (65-115); Osmolality Calculated 288 mOsm/kg (285-295); Potassium 3.8 mmol/L (3.5-5.1); Sodium 139 mmol/L (136-145); Total Bilirubin 0.6 mg/dL (0.15-1.2); Total Protein 6.5 g/dL (6.6-8.7)
[2022-01-14] MEDS: palonosetron 0.25 mg/5 mL SDV IVP (10:21)
[2022-01-14] MEDS: dextrose 5% 250 ML 75 ML IV (10:21)
[2022-01-14] MEDS: leucovorin 760 MG in dextrose 5% 250 ML 81.5 MG IV (11:01)
[2022-01-14 15:04] VITALS: BP 101/67; PULSE 73; RESP 16; TEMP 36.4; O2SAT 98
[2022-01-28 08:51] LABS: Basophils % 1.3 %; Eosinophils # 0.1 10^3/uL (0.0-0.8); Eosinophils % 4.1 %; Hemoglobin 11.8 g/dL (11.5-15.3); Lymphocytes # 0.8 10^3/uL (0.8-4.8); Lymphocytes % 24.1 %; Mean Corpuscular HGB Conc 32.8 g/dL (30.0-36.0); Mean Corpuscular Hemoglobin 29.1 pg (28.0-34.0); Mean Corpuscular Volume 88.7 fl (81-99); Mean Platelet Volume 10.8 fL (7.4-10.4); Monocytes # 0.9 10^3/uL (0.2-0.9); Monocytes % 28.2 %; Neutrophils # 1.35 10^3/uL (1.8-7.7); Neutrophils % 42.3 %; Nucleated Red Blood Cells % 0 %; Platelet Count 89 10^3/cmm (130-400); Red Blood Count 4.06 10^6/uL (4.1-5.3); Red Cell Distribution Width 18.9 % (12.1-15.1); White Blood Count 3.2 10^3/uL (4.0-10.0)
[2022-01-28 09:11] LABS: Alanine Aminotransferase 12 U/L (0-33); Albumin Level 3.2 g/dL (3.5-5.2); Alkaline Phosphatase 141 IU/L (35-105); Anion Gap 11.9 (5-19); Aspartate Amino Transferase 27 U/L (0-32); Blood Urea Nitrogen 11 mg/dL (6-20); Calcium 8.9 mg/dL (8.5-10.5); Carbon Dioxide 25 mmol/L (22-29); Chloride 103 mmol/L (98-107); Globulin 2.9 g/dL (1.3-4.6); Glucose 140 mg/dL (65-115); Osmolality Calculated 284 mOsm/kg (285-295); Potassium 3.9 mmol/L (3.5-5.1); Sodium 136 mmol/L (136-145); Total Bilirubin 0.6 mg/dL (0.15-1.2); Total Protein 6.1 g/dL (6.6-8.7)
== END 2022-01-30 23:59 | disposition home or self-care (01) ==
PROVIDERS: PCP Emergency Medicine; Visit Provider Internal Medicine Medical Oncology
DX: C22.1 Intrahepatic bile duct carcinoma; C18.1 Malignant neoplasm of appendix; C79.89 Secondary malignant neoplasm of other specified sites; F17.210 Nicotine dependence, cigarettes, uncomplicated; F32.A Depression, unspecified; F41.9 Anxiety disorder, unspecified; G62.0 Drug-induced polyneuropathy; T45.1X5A Adverse effect of antineoplastic and immunosuppressive drugs, initial encounter; Z79.899 Other long term (current) drug therapy
CPT/HCPCS: 36591; 71260; 74177; 80053; 85025; 96367; 96368; 96375; 96411; 96413; 96415; 96416; 96523; J0640; J1100; J2469; J9190; J9263; Q9967

== ENCOUNTER 2022-02-27 13:00 | Oncology outpatient (recurring) (ONCR) | payer OTHER, SELFPAY ==
[2022-02-04 08:45] LABS: Basophils # 0.1 10^3/uL (0.0-0.1); Basophils % 1.3 %; Eosinophils # 0.2 10^3/uL (0.0-0.8); Eosinophils % 4.1 %; Hematocrit 37.6 % (37.0-47.0); Hemoglobin 12.3 g/dL (11.5-15.3); Mean Corpuscular HGB Conc 32.7 g/dL (30.0-36.0); Mean Corpuscular Hemoglobin 29.1 pg (28.0-34.0); Mean Corpuscular Volume 89.1 fl (81-99); Mean Platelet Volume 10.7 fL (7.4-10.4); Monocytes % 22.3 %; Neutrophils # 2.38 10^3/uL (1.8-7.7); Neutrophils % 50.9 %; Nucleated Red Blood Cells % 0 %; Platelet Count 105 10^3/cmm (130-400); Red Blood Count 4.22 10^6/uL (4.1-5.3); Red Cell Distribution Width 19.1 % (12.1-15.1); White Blood Count 4.7 10^3/uL (4.0-10.0)
[2022-02-04] MEDS: palonosetron 0.25 mg/5 mL SDV IVP (09:46)
[2022-02-04] MEDS: dextrose 5% 250 ML 75 ML IV (09:46)
[2022-02-04] MEDS: leucovorin 760 MG in dextrose 5% 250 ML 81.5 MG IV (10:25)
[2022-02-04 14:10] VITALS: BP 124/80; PULSE 81; RESP 18; TEMP 36.9; O2SAT 97
[2022-02-06 14:57] VITALS: BP 98/64; PULSE 93; RESP 16; TEMP 36.9; O2SAT 99
[2022-02-18] MEDS: alteplase 1 mg/mL SDV 2 mL 2 MG INTRACATH (09:14)
[2022-02-18 09:18] VITALS: BMI 26.9
[2022-02-18 09:19] LABS: Basophils % 1.1 %; Eosinophils # 0.1 10^3/uL (0.0-0.8); Eosinophils % 3.3 %; Hematocrit 40.8 % (37.0-47.0); Hemoglobin 13.1 g/dL (11.5-15.3); Lymphocytes # 0.8 10^3/uL (0.8-4.8); Lymphocytes % 20.5 %; Mean Corpuscular HGB Conc 32.1 g/dL (30.0-36.0); Mean Corpuscular Hemoglobin 29.5 pg (28.0-34.0); Mean Corpuscular Volume 91.9 fl (81-99); Mean Platelet Volume 11.1 fL (7.4-10.4); Monocytes % 26.6 %; Neutrophils # 1.76 10^3/uL (1.8-7.7); Neutrophils % 48.2 %; Nucleated Red Blood Cells % 0 %; Platelet Count 101 10^3/cmm (130-400); Red Blood Count 4.44 10^6/uL (4.1-5.3); Red Cell Distribution Width 17.9 % (12.1-15.1); White Blood Count 3.7 10^3/uL (4.0-10.0)
[2022-02-18 09:39] LABS: Alanine Aminotransferase 15 U/L (0-33); Albumin Level 3.4 g/dL (3.5-5.2); Alkaline Phosphatase 186 IU/L (35-105); Aspartate Amino Transferase 39 U/L (0-32); Blood Urea Nitrogen 16 mg/dL (6-20); Calcium 9.1 mg/dL (8.5-10.5); Carbon Dioxide 27 mmol/L (22-29); Chloride 101 mmol/L (98-107); Globulin 3.2 g/dL (1.3-4.6); Glomerular Filtration Rate 130.6 mL/min (90-130); Glucose 157 mg/dL (65-115); Osmolality Calculated 292 mOsm/kg (285-295); Sodium 139 mmol/L (136-145); Total Bilirubin 0.8 mg/dL (0.15-1.2); Total Protein 6.6 g/dL (6.6-8.7)
[2022-02-18 09:41] LABS: Anion Gap 14.7 (5-19); Potassium 3.7 mmol/L (3.5-5.1)
[2022-02-25 08:26] VITALS: BMI 27.6
[2022-02-25 08:53] LABS: Basophils # 0.1 10^3/uL (0.0-0.1); Basophils % 1.7 %; Eosinophils # 0.2 10^3/uL (0.0-0.8); Eosinophils % 5.2 %; Hemoglobin 12.4 g/dL (11.5-15.3); Lymphocytes # 0.9 10^3/uL (0.8-4.8); Lymphocytes % 24.5 %; Mean Corpuscular HGB Conc 31.8 g/dL (30.0-36.0); Mean Corpuscular Hemoglobin 29.3 pg (28.0-34.0); Mean Corpuscular Volume 92.2 fl (81-99); Mean Platelet Volume 11.6 fL (7.4-10.4); Monocytes # 0.8 10^3/uL (0.2-0.9); Monocytes % 21.5 %; Neutrophils % 46.8 %; Nucleated Red Blood Cells % 0 %; Platelet Count 113 10^3/cmm (130-400); Red Blood Count 4.23 10^6/uL (4.1-5.3); Red Cell Distribution Width 17.7 % (12.1-15.1); White Blood Count 3.6 10^3/uL (4.0-10.0)
[2022-02-25 09:19] LABS: Alanine Aminotransferase 16 U/L (0-33); Albumin Level 3.3 g/dL (3.5-5.2); Alkaline Phosphatase 194 IU/L (35-105); Anion Gap 13.8 (5-19); Aspartate Amino Transferase 38 U/L (0-32); Blood Urea Nitrogen 11 mg/dL (6-20); Calcium 8.9 mg/dL (8.5-10.5); Carbon Dioxide 26 mmol/L (22-29); Chloride 103 mmol/L (98-107); Creatinine Clr Calc Pharmacy 141.7299; Globulin 2.6 g/dL (1.3-4.6); Glomerular Filtration Rate 130.6 mL/min (90-130); Glucose 184 mg/dL (65-115); Osmolality Calculated 292 mOsm/kg (285-295); Potassium 3.8 mmol/L (3.5-5.1); Sodium 139 mmol/L (136-145); Total Bilirubin 0.7 mg/dL (0.15-1.2); Total Protein 5.9 g/dL (6.6-8.7)
[2022-02-25] MEDS: dextrose 5% 250 ML 75 ML IV (10:05)
[2022-02-25] MEDS: palonosetron 0.25 mg/5 mL SDV IVP (10:06)
[2022-02-25] MEDS: leucovorin 760 MG in dextrose 5% 250 ML 81.5 MG IV (10:50)
[2022-02-25 15:05] VITALS: BP 113/74; PULSE 81; RESP 18; TEMP 36.2; O2SAT 96
== END 2022-03-02 23:59 | disposition home or self-care (01) ==
PROVIDERS: PCP Emergency Medicine; Visit Provider Internal Medicine Medical Oncology
DX: Z45.2 Encounter for adjustment and management of vascular access device (principal); Z53.9 Procedure and treatment not carried out, unspecified reason
CPT/HCPCS: 36591; 80053; 85025; 96367; 96368; 96375; 96411; 96413; 96415; 96416; 96523; J0640; J1100; J2469; J2997; J9190; J9263

== ENCOUNTER 2022-04-01 15:00 | Oncology outpatient (recurring) (ONCR) | payer OTHER, SELFPAY ==
[2022-03-18 08:34] LABS: Basophils # 0.1 10^3/uL (0.0-0.1); Basophils % 1.5 %; Eosinophils # 0.2 10^3/uL (0.0-0.8); Eosinophils % 5.1 %; Hematocrit 39.3 % (37.0-47.0); Hemoglobin 12.5 g/dL (11.5-15.3); Lymphocytes # 0.9 10^3/uL (0.8-4.8); Lymphocytes % 22.5 %; Mean Corpuscular HGB Conc 31.8 g/dL (30.0-36.0); Mean Corpuscular Hemoglobin 29.1 pg (28.0-34.0); Mean Corpuscular Volume 91.6 fl (81-99); Mean Platelet Volume 10.4 fL (7.4-10.4); Monocytes # 0.9 10^3/uL (0.2-0.9); Monocytes % 23.2 %; Neutrophils # 1.87 10^3/uL (1.8-7.7); Neutrophils % 47.2 %; Nucleated Red Blood Cells % 0 %; Platelet Count 119 10^3/cmm (130-400); Red Blood Count 4.29 10^6/uL (4.1-5.3); Red Cell Distribution Width 17.5 % (12.1-15.1)
[2022-03-18 08:55] LABS: Alanine Aminotransferase 16 U/L (0-33); Albumin Level 3.3 g/dL (3.5-5.2); Alkaline Phosphatase 215 U/L (35-105); Anion Gap 14.7 (5-19); Aspartate Amino Transferase 39 U/L (0-32); Blood Urea Nitrogen 11 mg/dL (6-20); Carbon Dioxide 24 mmol/L (22-29); Chloride 103 mmol/L (98-107); Globulin 2.8 g/dL (1.3-4.6); Glucose 178 mg/dL (65-115); Osmolality Calculated 290 mOsm/kg (285-295); Potassium 3.7 mmol/L (3.5-5.1); Sodium 138 mmol/L (136-145); Total Bilirubin 0.6 mg/dL (0.15-1.2); Total Protein 6.1 g/dL (6.6-8.7)
[2022-03-18] MEDS: dextrose 5% 250 ML 75 ML IV (10:09)
[2022-03-18] MEDS: palonosetron 0.25 mg/5 mL SDV IVP (10:11)
[2022-03-18] MEDS: leucovorin 760 MG in dextrose 5% 250 ML 81.5 MG IV (11:14)
[2022-03-18 15:15] VITALS: BP 127/80; PULSE 79; RESP 18; TEMP 36.6; O2SAT 98
[2022-03-20 13:00] VITALS: BP 113/74; PULSE 92; RESP 18; TEMP 37.2; O2SAT 97
--- NOTE | 2022-04-01 15:00 | CT_ITS ---
WS: [id number] CT CHEST, ABDOMEN AND PELVIS WITH CONTRAST HISTORY: Abdominal pain. History of appendiceal cancer. TECHNIQUE: Contiguous 5 mm axial imaging performed through the chest, abdomen and pelvis with IV cont rast, oral contrast has been provided. Coronal and sagittal reformats chest. Coronal and sagittal ref ormats through the abdomen and pelvis. All CT scans at [facility] use at least one of these d ose optimization techniques: automated exposure control; mA and/or kV adjustment per patient size (in cludes targeted exams where dose is matched to clinical indication); or iterative reconstruction. CONTRAST: Omnipaque 350; 95 mL IV. DLP: 1588.48 mGy.cm COMPARISON: 01/06/2022, 08/19/[address]: Lungs are well-aerated. No suspicious nodule or mass. Bandlike areas of scarring or atelect asis in the lower lobes and RIGHT middle lobe. No mass or nodule. No pneumonia. No mediastinal or hil ar adenopathy. Normal size aorta and pulmonary artery. Heart is normal size. No pericardial or pleura l effusion. Abdomen CT: New low-attenuation nodules in the inferior RIGHT lobe of the liver highly suspicious for metastatic disease. The largest nodule measures 14 mm at its maximum. These nodules are both along t he inferior medial surface of the RIGHT lobe of the liver. Additional smaller low-attenuation lesion along the diaphragmatic surface of the liver. Suspicious but indeterminate. Again noted is pneumobili a. Heterogeneous increased enhancement towards the lateral portion of the RIGHT lobe of the liver. In creased enhancement on the early arterial phase but nearly completely fills in on the delayed phase. This is probably due to hepatic attenuation differences and not likely tumor. Portal vein is negative . Resection LEFT lobe of the liver. Gallbladder has been removed. Normal spleen with granulomata. Mil d atrophy pancreas. Mild stable thickening both adrenal glands. Mild atherosclerosis aorta. Ascites is new since the prior study. There is a small amount of ascites throughout the abdomen and p kevin. Ascites extends along the gastrohepatic ligament and gastrosplenic ligaments. Solid enhancing nodule measuring 2.1 x 1.8 cm is identified along the anterior stomach towards the diaphragmatic surf manuelito. This is less cystic than on the prior study. Central mesenteric nodule measures 1.0 x 1.3 cm unc hanged anterior to the proximal IVC. No GI tract obstruction. Pelvic CT: Free fluid in the pelvis. This is new since the prior study. Urinary bladder is only mildl y distended. Prior hysterectomy. Continued decrease in size of the spiculated soft tissue masses in the RIGHT adnexa extending to invo lve the RIGHT anterolateral sigmoid. The largest component of soft tissue remaining measures 1.8 x 2. 2 cm. The smaller mass measures 1.[address]/CT chest abd pel w con* IMPRESSION: 1. New low-attenuation lesions in the inferior medial RIGHT lobe of the liver highly suspicious for metastatic disease. 2. New moderate ascites. 3. Mesenteric deposits abutting the superior surface of the stomach has decrea sed in size but is now more solid in appearance measuring 2.1 x 1.8 cm. No new metastatic deposits. 4. Significant improvement in the RIGHT adnexal spiculated soft tissue masses as previously described. One of the suspected masses has nearly resolved. Large st component now remaining measures 1.8 x 2.2 cm. 5. No pulmonary nodule or mass. 6. No adrenal mass.
[2022-04-01] MEDS: iohexol 350 mg/mL 100 mL Btl IV (15:32)
[2022-04-01] MEDS: barium sulfate 450 mL Oral Susp PO (15:33)
== END 2022-04-02 23:59 | disposition home or self-care (01) ==
LOC: RAD 04-02 00:01 → ONCMED 04-03 07:18
PROVIDERS: PCP Emergency Medicine; Visit Provider Internal Medicine Medical Oncology
DX: Z53.9 Procedure and treatment not carried out, unspecified reason (principal); C24.0 Malignant neoplasm of extrahepatic bile duct; C79.89 Secondary malignant neoplasm of other specified sites; C18.1 Malignant neoplasm of appendix
CPT/HCPCS: 71260; 74177; 80053; 85025; 96367; 96368; 96375; 96409; 96413; 96415; 96416; 96523; J0640; J1100; J2469; J9190; J9263; Q9967

== ENCOUNTER 2022-04-08 08:15 | Oncology outpatient (recurring) (ONCR) | payer OTHER, SELFPAY ==
[2022-04-08 08:31] VITALS: BMI 26.0
[2022-04-08 08:37] LABS: Basophils % 0.9 %; Eosinophils # 0.2 10^3/uL (0.0-0.8); Eosinophils % 3.9 %; Hematocrit 39.7 % (37.0-47.0); Hemoglobin 12.7 g/dL (11.5-15.3); Lymphocytes # 0.9 10^3/uL (0.8-4.8); Mean Corpuscular Hemoglobin 29.3 pg (28.0-34.0); Mean Corpuscular Volume 91.5 fl (81-99); Mean Platelet Volume 10.7 fL (7.4-10.4); Monocytes # 0.9 10^3/uL (0.2-0.9); Monocytes % 19.5 %; Neutrophils # 2.41 10^3/uL (1.8-7.7); Neutrophils % 55.2 %; Nucleated Red Blood Cells % 0 %; Platelet Count 155 10^3/cmm (130-400); Red Blood Count 4.34 10^6/uL (4.1-5.3); Red Cell Distribution Width 17.2 % (12.1-15.1); White Blood Count 4.4 10^3/uL (4.0-10.0)
[2022-04-08 09:18] LABS: Alanine Aminotransferase 15 U/L (0-33); Albumin Level 3.4 g/dL (3.5-5.2); Alkaline Phosphatase 205 U/L (35-105); Anion Gap 15.6 (5-19); Aspartate Amino Transferase 30 U/L (0-32); Blood Urea Nitrogen 7 mg/dL (6-20); Carbon Dioxide 26 mmol/L (22-29); Chloride 100 mmol/L (98-107); Globulin 3.5 g/dL (1.3-4.6); Glucose 205 mg/dL (65-115); Osmolality Calculated 290 mOsm/kg (285-295); Potassium 3.6 mmol/L (3.5-5.1); Sodium 138 mmol/L (136-145); Total Bilirubin 0.7 mg/dL (0.15-1.2); Total Protein 6.9 g/dL (6.6-8.7)
== END 2022-05-02 23:59 | disposition home or self-care (01) ==
PROVIDERS: Nurse Practitioner; PCP Emergency Medicine; Visit Provider Internal Medicine Medical Oncology
DX: C24.0 Malignant neoplasm of extrahepatic bile duct (principal); Z45.2 Encounter for adjustment and management of vascular access device; Z51.11 Encounter for antineoplastic chemotherapy; C18.1 Malignant neoplasm of appendix; C79.89 Secondary malignant neoplasm of other specified sites; C22.1 Intrahepatic bile duct carcinoma
CPT/HCPCS: 36591; 80053; 85025

== ENCOUNTER 2022-04-11 10:58 | Day surgery (SDC) | payer OTHER, SELFPAY ==
[2022-04-09 14:12] VITALS: BMI 24.3
--- NOTE | 2022-04-11 11:04 | US_ITS ---
WS: [id number] Abdominal ultrasound, limited. History: Evaluate for ascites. Comparison: 04/01/2022 All 4 quadrants are imaged by ultrasound to evaluate for ascites. There is no peritoneal fluid identi fied. There are no adequate pockets of peritoneal fluid in order to perform paracentesis. US/US abdomen limited 11536 IMPRESSION: No adequate pockets of ascites to perform a paracentesis.
[2022-04-11 11:14] VITALS: BP 155/90; PULSE 112; RESP 16; TEMP 36.1; O2SAT 98
== END 2022-04-11 11:30 | disposition home or self-care (01) ==
LOC: GILAB 11:00
PROVIDERS: Radiology Diagnostic Radiology; PCP Emergency Medicine; Visit Provider Internal Medicine Medical Oncology
DX: R18.8 Other ascites (principal)
CPT/HCPCS: 76705

== ENCOUNTER 2022-05-07 08:11 | Oncology outpatient (recurring) (ONCR) | payer OTHER, SELFPAY | END 2022-06-02 23:59 | disposition home or self-care (01) | PROVIDERS: PCP Emergency Medicine; Visit Provider Internal Medicine Medical Oncology | DX: Z45.2 Encounter for adjustment and management of vascular access device (principal) | CPT/HCPCS: 96523 ==

== ENCOUNTER 2022-07-02 13:45 | Oncology outpatient (recurring) (ONCR) | payer OTHER, SELFPAY ==
[2022-06-04 12:55] LABS: Basophils # 0.1 10^3/uL (0.0-0.1); Eosinophils # 0.1 10^3/uL (0.0-0.8); Eosinophils % 2.3 %; Hemoglobin 13.4 g/dL (11.5-15.3); Lymphocytes # 1.1 10^3/uL (0.8-4.8); Lymphocytes % 20.4 %; Mean Corpuscular HGB Conc 32.7 g/dL (30.0-36.0); Mean Corpuscular Volume 91.9 fl (81-99); Mean Platelet Volume 10.4 fL (7.4-10.4); Monocytes # 0.8 10^3/uL (0.2-0.9); Neutrophils # 3.21 10^3/uL (1.8-7.7); Neutrophils % 61.1 %; Nucleated Red Blood Cells % 0 %; Platelet Count 145 10^3/cmm (130-400); Red Blood Count 4.46 10^6/uL (4.1-5.3); Red Cell Distribution Width 15.2 % (12.1-15.1); White Blood Count 5.3 10^3/uL (4.0-10.0)
[2022-06-04 13:23] LABS: Alanine Aminotransferase 23 U/L (0-33); Albumin Level 3.9 g/dL (3.5-5.2); Alkaline Phosphatase 284 U/L (35-105); Anion Gap 12.9 (5-19); Aspartate Amino Transferase 41 U/L (0-32); Blood Urea Nitrogen 8 mg/dL (6-20); Calcium 9.4 mg/dL (8.5-10.5); Cancer Antigen 19 9 16.23 U/mL (0-35); Carbon Dioxide 26 mmol/L (22-29); Chloride 103 mmol/L (98-107); Globulin 3.4 g/dL (1.3-4.6); Glucose 89 mg/dL (65-115); Osmolality Calculated 284 mOsm/kg (285-295); Potassium 3.9 mmol/L (3.5-5.1); Sodium 138 mmol/L (136-145); Total Bilirubin 0.4 mg/dL (0.15-1.2); Total Protein 7.3 g/dL (6.6-8.7)
[2022-06-04 14:49] LABS: Carcinoembryonic Antigen 5.5 ng/mL (0.0-4.7)
--- NOTE | 2022-06-05 10:13 | PC.PHAR ---
OLAPARIB EDUCATION: 06/04/22 PATIENT ARRIVED WITH FOR OLAPARIB EDUCATION. PATIENT BROUGHT MEDICATION WITH HER. WE TALKED ABOUT HOW MEDICATION WORKS AND HOW TO TAKE IT. 2 TABS TWICE DAILY WITH OR WITHOUT FOOD SWALLOWED WHOLE. IF DOSE IS MISSED, SKIP AND AND START WITH NEXT SCHEDULED DOSE. WE TALKED ABOUT THE COMMON SIDE EFFECTS AND WHEN TO CALL THE OFFICE: RASH, CONSTIPATION, ABDOMINAL PAIN, DIARRHEA, N/V. I ADVISED HER TO HAVE IMODIUM ON HAND JUST IN CASE SHE NEEDS IT. SHE HAS HER NAUSEA MEDS AT HOME. I ADVISED HER TO CALL THE OFFICE [facility] WITH NEW OR WORSENING COUGH, S/SX EDEMA, S/SX OF VTE/PE. SHE WAS ADVISED TO KEEP ALL LAB APPOINTMENTS THIS MEDICATION CAN CAUSE HEMATOLOGIC EFFECTS. I ADVISED HER TO PROTECT HERSELF FROM SICK FRIENDS AND FAMILY, ESPECIALLY INFLUENZA. SHE WILL START THE MEDICATION THIS EVENING THEN RETURN TO THE OFFICE IN 1-2 WEEKS FOR FOLLOW UP. SHE CAN CALL US ANY TIME WITH QUESTIONS OR CONCERNS.
[2022-06-18 10:32] VITALS: BP 123/84; PULSE 90; RESP 18; TEMP 37.3
[2022-06-18 10:42] LABS: Basophils # 0.1 10^3/uL (0.0-0.1); Basophils % 1.1 %; Eosinophils # 0.1 10^3/uL (0.0-0.8); Eosinophils % 1.8 %; Hematocrit 39.3 % (37.0-47.0); Hemoglobin 12.8 g/dL (11.5-15.3); Lymphocytes # 0.9 10^3/uL (0.8-4.8); Lymphocytes % 15.1 %; Mean Corpuscular HGB Conc 32.6 g/dL (30.0-36.0); Mean Corpuscular Hemoglobin 30.2 pg (28.0-34.0); Mean Corpuscular Volume 92.7 fl (81-99); Monocytes # 0.5 10^3/uL (0.2-0.9); Monocytes % 9.1 %; Neutrophils # 4.14 10^3/uL (1.8-7.7); Neutrophils % 72.5 %; Nucleated Red Blood Cells % 0 %; Platelet Count 141 10^3/cmm (130-400); Red Blood Count 4.24 10^6/uL (4.1-5.3); Red Cell Distribution Width 14.6 % (12.1-15.1); White Blood Count 5.7 10^3/uL (4.0-10.0)
[2022-07-02 16:08] LABS: Basophils # 0.1 10^3/uL (0.0-0.1); Basophils % 1.1 %; Eosinophils # 0.1 10^3/uL (0.0-0.8); Eosinophils % 1.6 %; Hematocrit 36.1 % (37.0-47.0); Lymphocytes # 1.2 10^3/uL (0.8-4.8); Lymphocytes % 21.5 %; Mean Corpuscular HGB Conc 33.2 g/dL (30.0-36.0); Mean Corpuscular Hemoglobin 30.8 pg (28.0-34.0); Mean Corpuscular Volume 92.8 fl (81-99); Mean Platelet Volume 9.7 fL (7.4-10.4); Monocytes # 0.6 10^3/uL (0.2-0.9); Monocytes % 10.4 %; Neutrophils # 3.58 10^3/uL (1.8-7.7); Nucleated Red Blood Cells % 0 %; Platelet Count 158 10^3/cmm (130-400); Red Blood Count 3.89 10^6/uL (4.1-5.3); Red Cell Distribution Width 15.6 % (12.1-15.1); White Blood Count 5.5 10^3/uL (4.0-10.0)
[2022-07-02 16:38] LABS: Carcinoembryonic Antigen 5.5 ng/mL (0.0-4.7)
[2022-07-02 16:49] LABS: Alanine Aminotransferase 21 U/L (0-33); Albumin Level 3.9 g/dL (3.5-5.2); Alkaline Phosphatase 255 U/L (35-105); Aspartate Amino Transferase 32 U/L (0-32); Blood Urea Nitrogen 12 mg/dL (6-20); Calcium 9.3 mg/dL (8.5-10.5); Carbon Dioxide 27 mmol/L (22-29); Chloride 101 mmol/L (98-107); Creatinine Clr Calc Pharmacy 141.1519; Globulin 3.1 g/dL (1.3-4.6); Glomerular Filtration Rate 130.6 mL/min (90-130); Glucose 115 mg/dL (65-115); Osmolality Calculated 283 mOsm/kg (285-295); Sodium 136 mmol/L (136-145); Total Bilirubin 0.5 mg/dL (0.15-1.2)
[2022-07-02 17:29] LABS: Cancer Antigen 19 9 12.98 U/mL (0-35)
== END 2022-07-02 23:59 | disposition home or self-care (01) ==
PROVIDERS: PCP Emergency Medicine; Visit Provider Internal Medicine Medical Oncology
DX: C22.1 Intrahepatic bile duct carcinoma (principal); C79.63 Secondary malignant neoplasm of bilateral ovaries; R53.0 Neoplastic (malignant) related fatigue; R18.8 Other ascites; G62.0 Drug-induced polyneuropathy; T45.1X5A Adverse effect of antineoplastic and immunosuppressive drugs, initial encounter; Z79.52 Long term (current) use of systemic steroids; Z79.899 Other long term (current) drug therapy
CPT/HCPCS: 36591; 80053; 82378; 85025; 86301

== ENCOUNTER 2022-08-05 13:13 | Oncology outpatient (recurring) (ONCR) | payer OTHER, SELFPAY ==
[2022-08-05 13:55] LABS: Basophils # 0.1 10^3/uL (0.0-0.1); Basophils % 1.1 %; Eosinophils # 0.1 10^3/uL (0.0-0.8); Eosinophils % 1.9 %; Hematocrit 35.4 % (37.0-47.0); Hemoglobin 11.8 g/dL (11.5-15.3); Lymphocytes # 1.1 10^3/uL (0.8-4.8); Lymphocytes % 20.7 %; Mean Corpuscular HGB Conc 33.3 g/dL (30.0-36.0); Mean Corpuscular Hemoglobin 31.7 pg (28.0-34.0); Mean Corpuscular Volume 95.2 fl (81-99); Mean Platelet Volume 9.6 fL (7.4-10.4); Monocytes # 0.6 10^3/uL (0.2-0.9); Monocytes % 10.7 %; Neutrophils # 3.47 10^3/uL (1.8-7.7); Neutrophils % 65.2 %; Nucleated Red Blood Cells % 0.4 %; Platelet Count 146 10^3/cmm (130-400); Red Blood Count 3.72 10^6/uL (4.1-5.3); Red Cell Distribution Width 20.4 % (12.1-15.1); White Blood Count 5.3 10^3/uL (4.0-10.0)
[2022-08-05 14:20] LABS: Alanine Aminotransferase 27 U/L (0-33); Alkaline Phosphatase 267 U/L (35-105); Aspartate Amino Transferase 32 U/L (0-32); Blood Urea Nitrogen 12 mg/dL (6-20); Calcium 9.7 mg/dL (8.5-10.5); Carbon Dioxide 27 mmol/L (22-29); Chloride 101 mmol/L (98-107); Globulin 3.2 g/dL (1.3-4.6); Glomerular Filtration Rate 105.8 mL/min (90-130); Glucose 102 mg/dL (65-115); Osmolality Calculated 286 mOsm/kg (285-295); Sodium 138 mmol/L (136-145); Total Bilirubin 0.5 mg/dL (0.15-1.2); Total Protein 7.2 g/dL (6.6-8.7)
== END 2022-09-02 23:59 | disposition home or self-care (01) ==
PROVIDERS: PCP Emergency Medicine; Visit Provider Internal Medicine Medical Oncology
DX: C24.0 Malignant neoplasm of extrahepatic bile duct (principal); C79.51 Secondary malignant neoplasm of bone; C79.63 Secondary malignant neoplasm of bilateral ovaries; C79.89 Secondary malignant neoplasm of other specified sites; R18.8 Other ascites; K76.89 Other specified diseases of liver; R53.0 Neoplastic (malignant) related fatigue; K52.89 Other specified noninfective gastroenteritis and colitis; Z79.899 Other long term (current) drug therapy; Z92.21 Personal history of antineoplastic chemotherapy
CPT/HCPCS: 36591; 80053; 85025

== ENCOUNTER 2022-08-15 12:54 | Outpatient (CLI) | payer OTHER, SELFPAY ==
[2022-08-15] MEDS: iohexol 350 mg/mL 500 mL Btl (per mL) IV (13:45)
--- NOTE | 2022-08-15 14:30 | CT_ITS ---
WS: [id number] CT CHEST, ABDOMEN, AND PELVIS TECHNIQUE: Contrast-enhanced CT of the chest, abdomen, and pelvis with coronal and sagittal reformatt ed images. CLINICAL INFORMATION: Restaging COMPARISON: PET/CT April 19, [address] April 01, 2022. CT January 06, 2022 DLP: 797.[address] scans at [facility] use at least one of these dose optimization techniques: automated e xposure control; mA and/or kV adjustment per patient size (includes targeted exams where dose is matc hed to clinical indication); or iterative reconstruction. CT CHEST: Lungs are well aerated. No acute pulmonary infiltrates. No focal pneumonia or pleural fluid. Calcifie d granuloma in the lingula. No suspicious pulmonary parenchymal opacities. Normal caliber thoracic ao rta. Proximal main pulmonary arteries are normal. Small RIGHT thyroid nodule measuring 4 mm. No axill lottie lymphadenopathy. No mediastinal or hilar lymphadenopathy. Normal thoracic spine. No evidence of m etastatic disease in the chest. CT ABDOMEN AND PELVIS: Cholecystectomy. Hysterectomy. Mild chronic intrahepatic biliary duct dilatation is unchanged. Patent RIGHT portal vein and splenic vein. Splenomegaly measuring 11.1 CCM. Lung bases are well aerated. Ca lcified granuloma in the lingula. Normal GE junction. Fatty atrophy of the pancreas. Prior postoperative changes resection LEFT hepatic lobe. Small low-attenuation lesion in the RIGHT dome of the liver stable over multiple prior examinations. Adrenal glands are normal. Normal renal parenchymal enhancement. No hydronephrosis. Normal caliber abdominal aorta. No abdominal or pelvic lymphadenopathy. No inguinal lymphadenopathy. Postoperative hysterectomy. Stable small metastatic lesions along the RIGHT adnexa are unchanged. Met astatic lesions involving the surface of the stomach have essentially resolved compared to previous. Mild residual thickening along the antrum and greater curvature of the stomach. Ascites has resolved. No evidence of new or progressed metastatic disease in the abdomen or pelvis. CT/CT chest abd pel w con* IMPRESSION: 1. No evidence of metastatic disease in chest 2. No evidence of progressed disease in the abdomen or pelvis. 3. Prior postoperative changes resection LEFT globe. 4. Stable low-attenuation lesion in the RIGHT hepatic lobe measuring 6 mm unch anged over multiple prior exams. 5. Prior cholecystectomy and hysterectomy. 6. Stable soft tissue thickening along the RIGHT adnexa at the site of known m etastatic deposits. This is unchanged. 7. Previously described metastatic gastric lesions have essentially resolved. Mild residual soft tissue thickening involving the antrum and greater curvature of the stomach. 8. No adenopathy in the chest abdomen or pelvis.
== END 2022-08-15 12:55 | disposition home or self-care (01) ==
LOC: RAD 12:56
PROVIDERS: PCP Emergency Medicine; Visit Provider Internal Medicine Medical Oncology
DX: C24.0 Malignant neoplasm of extrahepatic bile duct (principal)
CPT/HCPCS: 71260; 74177; Q9967

== ENCOUNTER 2022-11-25 11:00 | Oncology outpatient (recurring) (ONCR) | payer OTHER, SELFPAY ==
[2022-11-03] MEDS: alteplase 1 mg/mL SDV 2 mL 2 MG INTRACATH (13:36)
[2022-11-03 13:38] VITALS: BP 110/68; PULSE 71; RESP 16; TEMP 37.2; O2SAT 97
[2022-11-25 11:11] VITALS: BP 128/77; PULSE 79; RESP 16; TEMP 37.1; O2SAT 99
[2022-11-25 11:38] LABS: Basophils # 0.1 10^3/uL (0.0-0.1); Basophils % 1.1 %; Eosinophils # 0.1 10^3/uL (0.0-0.8); Eosinophils % 1.5 %; Hematocrit 38.4 % (37.0-47.0); Lymphocytes # 1.1 10^3/uL (0.8-4.8); Lymphocytes % 21.1 %; Mean Corpuscular HGB Conc 33.9 g/dL (30.0-36.0); Mean Corpuscular Hemoglobin 35.4 pg (28.0-34.0); Mean Corpuscular Volume 104.6 fl (81-99); Mean Platelet Volume 10.1 fL (7.4-10.4); Monocytes # 0.6 10^3/uL (0.2-0.9); Monocytes % 11.8 %; Neutrophils # 3.37 10^3/uL (1.8-7.7); Neutrophils % 64.1 %; Nucleated Red Blood Cells % 0 %; Platelet Count 181 10^3/cmm (130-400); Red Blood Count 3.67 10^6/uL (4.1-5.3); Red Cell Distribution Width 16.1 % (12.1-15.1); White Blood Count 5.3 10^3/uL (4.0-10.0)
[2022-11-25 12:12] LABS: Alanine Aminotransferase 33 U/L (0-33); Albumin Level 4.1 g/dL (3.5-5.2); Alkaline Phosphatase 280 U/L (35-105); Anion Gap 14.1 (5-19); Aspartate Amino Transferase 36 U/L (0-32); Blood Urea Nitrogen 15 mg/dL (6-20); Calcium 8.9 mg/dL (8.5-10.5); Carbon Dioxide 27 mmol/L (22-29); Chloride 103 mmol/L (98-107); Globulin 2.9 g/dL (1.3-4.6); Glomerular Filtration Rate 105.8 mL/min (90-130); Glucose 102 mg/dL (65-115); Osmolality Calculated 291 mOsm/kg (285-295); Potassium 4.1 mmol/L (3.5-5.1); Sodium 140 mmol/L (136-145); Total Bilirubin 0.4 mg/dL (0.15-1.2)
[2022-11-25 12:25] LABS: Carcinoembryonic Antigen 6.2 ng/mL (0.0-4.7)
== END 2022-11-30 23:59 | disposition home or self-care (01) ==
PROVIDERS: PCP Emergency Medicine; Visit Provider Internal Medicine Medical Oncology
DX: C22.1 Intrahepatic bile duct carcinoma; C79.89 Secondary malignant neoplasm of other specified sites
CPT/HCPCS: 36593; 80053; 82378; 85025; 86301; J2997

== ENCOUNTER 2022-11-27 10:38 | Outpatient (CLI) | payer OTHER, SELFPAY ==
--- NOTE | 2022-11-27 10:46 | IR_ITS ---
WS: [id number] Exam: [place] [id number] Date/Time of Exam: 11/27/2022 11:00 AM Reason For Exam: SUPERIOR VENA CAVA FLOW PORT ACCESS Fluoroscopy time: 1min [id number] minutes # of spot films: 6 Contrast injection into a right-sided IJ Chemo-Port is performed under fluoroscopic visualization wit h the multiple fluoroscopic spot films obtained. Injection of contrast shows obstruction of the superior vena cava with numerous venous collaterals vi sualized. There is also likely significant thrombus in the right subclavian vein. Retrograde flow of contrast into the right internal jugular vein noted. Recommendations: CT angiography of the neck and chest would probably additional information if thoug ht to be clinically warranted. IR/[place] [id number] IMPRESSION: 1. 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 There is likely signif icant thrombus in the right subclavian vein.
== END 2022-11-27 10:39 | disposition home or self-care (01) ==
LOC: RAD 10:41
PROVIDERS: PCP Emergency Medicine; Visit Provider Internal Medicine Medical Oncology
DX: C22.1 Intrahepatic bile duct carcinoma (principal)
CPT/HCPCS: 36598; Q9966

== ENCOUNTER 2023-03-10 11:53 | Outpatient (CLI) | payer OTHER, SELFPAY ==
[2023-03-10] MEDS: iohexol 350 mg/mL 500 mL Btl (per mL) IV (12:58)
[2023-03-10] MEDS: iohexol 350 mg/mL 500 mL Btl (per mL) PO (12:58)
--- NOTE | 2023-03-10 13:00 | CTR_ITS ---
PROCEDURE INFORMATION: Exam: CT Chest With Contrast; Diagnostic Exam date and time: 03/10/2023 12:55 PM Age: 53 years old Clinical indication: Condition or disease; Cancer; Other: Intrahepatic cholangiocarcinoma; Follow-up oncological assessment; Prior surgery; Surgery date: 6+ months; Surgery type: Hepatectomy, chemo port placement, appendectomy, uterus removal, bilateral ovary removal, gallbladder removal, and partial intestine removal. ; Additional info: Compare to previous TECHNIQUE: Imaging protocol: Diagnostic computed tomography of the chest with contrast. Radiation optimization: All CT scans at this facility use at least one of these dose optimization techniques: automated exposure control; mA and/or kV adjustment per patient size (includes targeted exams where dose is matched to clinical indication); or iterative reconstruction. Contrast material: OMNI 350; Contrast volume: 95 ml; Contrast route: INTRAVENOUS (IV); REPORTING DATA: Count of CT and Cardiac NM exams in prior 12 months: This patient has received 3 known CTs and 0 known cardiac nuclear medicine studies in the 12 months prior to the current study. COMPARISON: CT chest abdpel w/*[id number] 08/15/2022 2:52 PM RADIATION DOSE METRICS: Total DLP (mGy-cm): 776.5 FINDINGS: Lungs: There is no consolidation. Small calcified granulomas are seen in the left upper lobe and lingula. Pleural spaces: There is no pleural effusion or pneumothorax. Heart: Heart size is normal. There is no pericardial effusion. Lymph nodes: There is no mediastinal or hilar lymphadenopathy. Vasculature: There is mild aortic atherosclerotic disease. The central pulmonary arteries are unremarkable. Bones/joints: Bones are unremarkable. Soft tissues: The extrathoracic soft tissues are unremarkable. PROCEDURE INFORMATION: Exam: CT Abdomen And Pelvis With Contrast Exam date and time: 03/10/2023 12:55 PM Age: 53 years old Clinical indication: Condition or disease; Cancer; Other: Intrahepatic cholangiocarcinoma; Follow-up oncological assessment; Prior surgery; Surgery date: 6+ months; Surgery type: Hepatectomy, chemo port placement, appendectomy, uterus removal, bilateral ovary removal, gallbladder removal, and partial intestine removal. ; Additional info: Compare to previous TECHNIQUE: Imaging protocol: Computed tomography of the abdomen and pelvis with contrast. Radiation optimization: All CT scans at this facility use at least one of these dose optimization techniques: automated exposure control; mA and/or kV adjustment per patient size (includes targeted exams where dose is matched to clinical indication); or iterative reconstruction. Contrast material: OMNI 350; Contrast volume: 95 ml; Contrast route: INTRAVENOUS (IV); REPORTING DATA: Count of CT and Cardiac NM exams in prior 12 months: This patient has received 3 known CTs and 0 known cardiac nuclear medicine studies in the 12 months prior to the current study. COMPARISON: CT chest abdpel w/*[id number] 08/15/2022 2:52 PM RADIATION DOSE METRICS: Total DLP (mGy-cm): 776.5 FINDINGS: Liver: Left hepatectomy. 6 mm hypodense nodule or cyst in the superior right lobe of the liver. No change since 08/15/2022. See axial series 5, image 8. This lesion is unchanged. An 8 mm hypodense nodule in the posterosuperior right lobe measures 3 mm currently (series 5, image 12) and measured 8 mm on 08/15/2022. Gallbladder and bile ducts: Pneumobilia. There is no intrahepatic or extrahepatic bile duct dilation. Hepato jejunostomy noted. Pancreas: There is mild atrophy of the pancreas. Spleen: The spleen is unremarkable. Adrenal glands: The adrenal glands are hypertrophic bilaterally. Kidneys and ureters: The kidneys are unremarkable. No hydronephrosis or stones. No ureteral dilation. Stomach and bowel: The stomach is decompressed, preventing meaningful evaluation of wall thickness. The small bowel is nondilated. There is mild thickening of the terminal ileal davis associated with mild ill-defined soft tissue density in the right lower quadrant. No obstruction. There is mild sigmoid colonic diverticulosis without evidence of diverticulitis. There is colonic wall thickening at the rectosigmoid anastomosis, similar to 08/15/2022. Appendix: The appendix is obscured. Intraperitoneal space: There is no free air or significant intraperitoneal free fluid. Vasculature: There is moderate aortic atherosclerotic disease. The portal, splenic and superior mesenteric veins are patent. Lymph nodes: There is no lymphadenopathy in the retroperitoneum, mesentery, pelvis or inguinal regions. Urinary bladder: The urinary bladder is decompressed, preventing meaningful evaluation of wall thickness. Reproductive: There is amorphous soft tissue thickening in the right adnexal region associated with distal small bowel, cecum, rectum, and superior margin of the urinary bladder, similar to the findings on 08/15/2022. No discrete mass in the pelvis. The uterus is absent. There is no adnexal mass or large cyst. Bones/joints: Bones are unremarkable. Soft tissues: The abdominal wall is intact. CT/CT chest abdpel w/*[id number] IMPRESSION: No sign of metastases in the thorax. IMPRESSION: 1. No sign of neoplastic progression since 08/15/2022. 2. Stable amorphous soft tissue density in the right adnexal region involving the mesentery, small bowel, rectosigmoid anastomosis and superior bladder wall consistent with sequelae of peritoneal metastases and or surgical changes. 3. Markedly decreased size of an 8 mm nodule in the right lobe of the liver. Stable 6 mm nodule or cyst the superior right lobe. 4. Stable appearance of left hepatectomy and hepatojejunostomy.
== END 2023-03-10 11:54 | disposition home or self-care (01) ==
PROVIDERS: PCP Emergency Medicine; Visit Provider Internal Medicine Medical Oncology
DX: C24.0 Malignant neoplasm of extrahepatic bile duct (principal); C79.89 Secondary malignant neoplasm of other specified sites
CPT/HCPCS: 71260; 74177; Q9967

== ENCOUNTER 2023-03-16 14:02 | Oncology outpatient (recurring) (ONCR) | payer OTHER, SELFPAY ==
[2023-03-16 15:35] LABS: Basophils # 0.1 10^3/uL (0.0-0.1); Eosinophils # 0.1 10^3/uL (0.0-0.8); Eosinophils % 1.1 %; Hematocrit 38.9 % (37.0-47.0); Hemoglobin 13.3 g/dL (11.5-15.3); Lymphocytes # 1.3 10^3/uL (0.8-4.8); Lymphocytes % 21.2 %; Mean Corpuscular HGB Conc 34.2 g/dL (30.0-36.0); Mean Corpuscular Hemoglobin 35.4 pg (28.0-34.0); Mean Corpuscular Volume 103.5 fl (81-99); Mean Platelet Volume 9.9 fL (7.4-10.4); Monocytes # 0.6 10^3/uL (0.2-0.9); Neutrophils # 4.21 10^3/uL (1.8-7.7); Neutrophils % 67.4 %; Nucleated Red Blood Cells % 0.3 %; Platelet Count 146 10^3/cmm (130-400); Red Blood Count 3.76 10^6/uL (4.1-5.3); Red Cell Distribution Width 17.1 % (12.1-15.1); White Blood Count 6.2 10^3/uL (4.0-10.0)
[2023-03-16 16:24] LABS: Alanine Aminotransferase 33 U/L (0-33); Albumin Level 4.3 g/dL (3.5-5.2); Alkaline Phosphatase 232 U/L (35-105); Anion Gap 16.1 (5-19); Aspartate Amino Transferase 31 U/L (0-32); Blood Urea Nitrogen 11 mg/dL (6-20); Calcium 9.5 mg/dL (8.5-10.5); Carbon Dioxide 27 mmol/L (22-29); Chloride 99 mmol/L (98-107); Glomerular Filtration Rate 105.4 mL/min (90-130); Glucose 98 mg/dL (65-115); Osmolality Calculated 285 mOsm/kg (285-295); Potassium 4.1 mmol/L (3.5-5.1); Sodium 138 mmol/L (136-145); Total Bilirubin 0.8 mg/dL (0.15-1.2); Total Protein 7.3 g/dL (6.6-8.7)
[2023-03-16 16:45] LABS: Cancer Antigen 19 9 10.18 U/mL (0-35)
== END 2023-04-02 23:59 | disposition home or self-care (01) ==
PROVIDERS: Nurse Practitioner Family; PCP Emergency Medicine; Visit Provider Internal Medicine Medical Oncology
DX: C24.0 Malignant neoplasm of extrahepatic bile duct (principal)
CPT/HCPCS: 36415; 80053; 82378; 85025; 86301

== ENCOUNTER 2023-06-16 12:02 | Oncology outpatient (recurring) (ONCR) | payer OTHER, SELFPAY ==
[2023-06-16 12:08] VITALS: BP 141/90; PULSE 116; RESP 16; TEMP 36.9; O2SAT 96
[2023-06-16 12:25] LABS: Basophils % 0.6 %; Eosinophils # 0.1 10^3/uL (0.0-0.8); Hematocrit 36.9 % (36-47); Lymphocytes # 0.9 10^3/uL (0.8-4.8); Mean Corpuscular Hemoglobin 36.2 pg (27-33); Mean Corpuscular Volume 103.7 fl (85-98); Mean Platelet Volume 10.2 fL (7.4-10.4); Monocytes # 0.8 10^3/uL (0.2-0.9); Monocytes % 10.6 %; Neutrophils # 5.35 10^3/uL (1.8-7.7); Neutrophils % 75.4 %; Nucleated Red Blood Cells % 0 %; Platelet Count 279 10^3/cmm (157-399); Red Blood Count 3.56 10^6/uL (3.85-5.65); Red Cell Distribution Width 15.8 % (12.1-15.1); White Blood Count 7.09 10^3/uL (3.29-11.43)
[2023-06-16 12:54] LABS: Carcinoembryonic Antigen 12.7 ng/mL (0.0-4.7)
[2023-06-16 13:05] LABS: Alanine Aminotransferase 26 U/L (0-33); Albumin Level 4.1 g/dL (3.5-5.2); Alkaline Phosphatase 183 U/L (35-105); Anion Gap 14.4 (5-19); Aspartate Amino Transferase 31 U/L (0-32); Blood Urea Nitrogen 12 mg/dL (6-20); Calcium 9.6 mg/dL (8.5-10.5); Carbon Dioxide 29 mmol/L (22-29); Chloride 96 mmol/L (98-107); Globulin 2.8 g/dL (1.3-4.6); Glomerular Filtration Rate 88.2 mL/min (90-130); Glucose 131 mg/dL (65-115); Osmolality Calculated 284 mOsm/kg (285-295); Potassium 3.4 mmol/L (3.5-5.1); Sodium 136 mmol/L (136-145); Total Protein 6.9 g/dL (6.6-8.7)
[2023-06-16 13:31] LABS: Cancer Antigen 19 9 9.02 U/mL (0-35)
== END 2023-07-02 23:59 | disposition home or self-care (01) ==
PROVIDERS: Nurse Practitioner Family; PCP Emergency Medicine; Visit Provider Internal Medicine Medical Oncology
DX: C24.0 Malignant neoplasm of extrahepatic bile duct (principal); C79.51 Secondary malignant neoplasm of bone; C79.63 Secondary malignant neoplasm of bilateral ovaries; C79.89 Secondary malignant neoplasm of other specified sites; R18.8 Other ascites; K76.89 Other specified diseases of liver; R53.0 Neoplastic (malignant) related fatigue; K52.89 Other specified noninfective gastroenteritis and colitis; Z79.899 Other long term (current) drug therapy; Z92.21 Personal history of antineoplastic chemotherapy; C22.1 Intrahepatic bile duct carcinoma; Z45.2 Encounter for adjustment and management of vascular access device; Z95.828 Presence of other vascular implants and grafts; T82.9XXA Unspecified complication of cardiac and vascular prosthetic device, implant and graft, initial encounter
CPT/HCPCS: 36415; 80053; 82378; 85025; 86301

== ENCOUNTER 2023-07-30 13:38 | Outpatient (CLI) | payer OTHER, SELFPAY ==
--- NOTE | 2023-07-30 13:45 | CT_ITS ---
WS: [id number] CT CHEST, ABDOMEN, AND PELVIS TECHNIQUE: Contrast-enhanced CT of the chest, abdomen, and pelvis with coronal and sagittal reformatt ed images. CLINICAL INFORMATION: abnormal labs COMPARISON: None. DLP: 759.[address] scans at [facility] use at least one of these dose optimization techniques: automated e xposure control; mA and/or kV adjustment per patient size (includes targeted exams where dose is matc hed to clinical indication); or iterative reconstruction. CT CHEST: Small LEFT pleural effusion. No mediastinal or hilar lymphadenopathy. Normal caliber thoracic aorta. Lungs are well aerated. A few patchy hazy groundglass opacities in a RIGHT perihilar distribution inv olving the RIGHT upper and lower lobes new from previous. This may be infectious or inflammatory but metastatic disease not excluded. Subsegmental atelectasis LEFT lower lobe. Atelectasis in the lingula . No axillary lymphadenopathy . CT ABDOMEN AND PELVIS: Previous postoperative changes hysterectomy with bilateral oophorectomy. Stable LEFT hepatectomy with hepatojejunostomy. Evidence of prior rectosigmoid anastomosis. Colon is decompressed. Decompressed s mall bowel loops in the RIGHT upper quadrant due to hepatojejunostomy Since the prior examination, interval development of mild scattered abdominal ascites. Small LEFT ple ural effusion. High-grade small bowel obstruction with fecalization of the small bowel. Distended sma ll bowel measuring up to 4.2 cm with air-fluid levels. Swirling in the RIGHT mesentery with normal ca liber small bowel loops visualized in the RIGHT lower quadrant with tethering. Transition point in the RIGHT lower quadrant involving the distal ileum with areas of tethering likel y from adhesions in the RIGHT lower abdomen and pelvis. Axial images 65 and 66 and coronal images 22 and 23. Fatty atrophy of the pancreas. Moderate RIGHT hydronephrosis is new from previous with ureterectasis extending into the pelvis. No visualized obstructing mass or lesion. Suspected stricture from prior p elvic surgery involving the distal ureter. No hydronephrosis in the LEFT kidney. Normal spleen. A few splenic granulomas. Normal caliber abdominal aorta. Moderate stenosis at the celiac origin which rem ains patent. SMA is patent. Diffuse body wall anasarca. Again seen is soft tissue thickening along the RIGHT adnexa at the site of prior known metastatic dis ease. This involves the superior bladder wall compatible with peritoneal metastasis and/or postoperat av changes that is unchanged compared to previous. IMPRESSION: 1. Interval development of high-grade small bowel obstruction with decompressed colon. Fecalization of the small bowel. 2. Transition point in the RIGHT lower quadrant involving the distal ileum with areas of tethering i n the RIGHT lower abdomen and pelvis. Axial images 65 and 66 and coronal images 22 and 23. 3. No free air. 4. Moderate RIGHT hydronephrosis with RIGHT ureterectasis is new compared to previous likely due to stricturing of the RIGHT ureter in the pelvis. 5. Small LEFT pleural effusion. 6. New patchy hazy groundglass infiltrates in a RIGHT perihilar distribution may be infectious or in flammatory but metastatic disease not excluded. 7. Mild abdominal ascites and anasarca. 8. Prior postoperative changes hysterectomy with bilateral oophorectomy. 9. Stable LEFT hepatectomy with hepatojejunostomy. Notified Kevon Holt MD at 07/30/2023 4:40 PM.
[2023-07-30] MEDS: iohexol 350 mg/mL 500 mL Btl (per mL) PO (14:53)
[2023-07-30] MEDS: iohexol 350 mg/mL 500 mL Btl (per mL) IV (16:17)
== END 2023-07-30 13:39 | disposition home or self-care (01) ==
LOC: RAD 13:39
PROVIDERS: PCP Emergency Medicine; Visit Provider Internal Medicine Medical Oncology
DX: C22.1 Intrahepatic bile duct carcinoma (principal); C79.89 Secondary malignant neoplasm of other specified sites; R89.9 Unspecified abnormal finding in specimens from other organs, systems and tissues; K56.609 Unspecified intestinal obstruction, unspecified as to partial versus complete obstruction; N13.30 Unspecified hydronephrosis; J90 Pleural effusion, not elsewhere classified; R91.8 Other nonspecific abnormal finding of lung field; R18.8 Other ascites; Z90.710 Acquired absence of both cervix and uterus; Z90.722 Acquired absence of ovaries, bilateral; Z90.49 Acquired absence of other specified parts of digestive tract
CPT/HCPCS: 71260; 74177; Q9967

== ENCOUNTER 2023-07-31 08:00 | Oncology outpatient (recurring) (ONCR) | payer OTHER, SELFPAY ==
[2023-07-16 12:50] VITALS: BP 121/79; PULSE 125; RESP 16; TEMP 37.1; O2SAT 96
[2023-07-16 12:58] LABS: Basophils % 0.1 %; Hematocrit 33.7 % (36-47); Lymphocytes # 0.3 10^3/uL (0.8-4.8); Lymphocytes % 1.5 %; Mean Corpuscular HGB Conc 35.3 g/dL (30-55); Mean Corpuscular Hemoglobin 34.8 pg (27-33); Mean Corpuscular Volume 98.5 fl (85-98); Mean Platelet Volume 10.3 fL (7.4-10.4); Monocytes # 0.5 10^3/uL (0.2-0.9); Monocytes % 2.5 %; Neutrophils # 19.12 10^3/uL (1.8-7.7); Neutrophils % 94.8 %; Nucleated Red Blood Cells % 0 %; Platelet Count 192 10^3/cmm (157-399); Red Blood Count 3.42 10^6/uL (3.85-5.65); Red Cell Distribution Width 15.9 % (12.1-15.1); White Blood Count 20.21 10^3/uL (3.29-11.43)
[2023-07-16 13:19] LABS: Alanine Aminotransferase 127 U/L (0-33); Albumin Level 2.9 g/dL (3.5-5.2); Alkaline Phosphatase 838 U/L (35-105); Anion Gap 15.5 (5-19); Aspartate Amino Transferase 139 U/L (0-32); Blood Urea Nitrogen 23 mg/dL (6-20); Calcium 8.6 mg/dL (8.5-10.5); Carbon Dioxide 28 mmol/L (22-29); Chloride 88 mmol/L (98-107); Globulin 2.9 g/dL (1.3-4.6); Glomerular Filtration Rate 105.4 mL/min (90-130); Glucose 128 mg/dL (65-115); Osmolality Calculated 271 mOsm/kg (285-295); Potassium 3.5 mmol/L (3.5-5.1); Sodium 128 mmol/L (136-145); Total Bilirubin 1.7 mg/dL (0.15-1.2); Total Protein 5.8 g/dL (6.6-8.7)
[2023-07-30 11:45] VITALS: BP 107/72; PULSE 124; RESP 16; TEMP 36.7; O2SAT 98
[2023-07-30 11:51] LABS: Basophils # 0.1 10^3/uL (0.0-0.1); Basophils % 0.4 %; Hematocrit 33.6 % (36-47); Lymphocytes # 0.9 10^3/uL (0.8-4.8); Lymphocytes % 6.7 %; Mean Corpuscular HGB Conc 33.6 g/dL (30-55); Mean Corpuscular Hemoglobin 33.4 pg (27-33); Mean Corpuscular Volume 99.4 fl (85-98); Mean Platelet Volume 10.8 fL (7.4-10.4); Monocytes # 1.1 10^3/uL (0.2-0.9); Monocytes % 8.1 %; Neutrophils # 10.85 10^3/uL (1.8-7.7); Neutrophils % 80.4 %; Nucleated Red Blood Cells % 0 %; Platelet Count 448 10^3/cmm (157-399); Red Blood Count 3.38 10^6/uL (3.85-5.65)
[2023-07-30 12:17] LABS: Carcinoembryonic Antigen 19.7 ng/mL (0.0-4.7)
[2023-07-30 12:28] LABS: Alanine Aminotransferase 42 U/L (0-33); Albumin Level 2.9 g/dL (3.5-5.2); Anion Gap 17.2 (5-19); Aspartate Amino Transferase 41 U/L (0-32); Blood Urea Nitrogen 23 mg/dL (6-20); Calcium 8.7 mg/dL (8.5-10.5); Carbon Dioxide 31 mmol/L (22-29); Chloride 85 mmol/L (98-107); Globulin 3.1 g/dL (1.3-4.6); Glomerular Filtration Rate 105.4 mL/min (90-130); Glucose 120 mg/dL (65-115); Osmolality Calculated 275 mOsm/kg (285-295); Potassium 3.2 mmol/L (3.5-5.1); Sodium 130 mmol/L (136-145); Total Bilirubin 1.2 mg/dL (0.15-1.2)
[2023-07-30 12:49] LABS: Cancer Antigen 19 9 119.7 U/mL (0-35)
[2023-07-30 13:10] LABS: Alkaline Phosphatase 1116 U/L (35-105)
[2023-07-30] MEDS: ondansetron 2 mg/ML SDV 2 mL 8 MG IVP (16:14)
[2023-07-30] MEDS: sodium chloride 0.9% 500 ML 999 ML IV (16:14)
[2023-07-30 17:09] VITALS: BP 114/79; PULSE 99; RESP 16; TEMP 36.6; O2SAT 99
[2023-07-31] MEDS: sodium chlor 0.9% + KCl 40 mEq 40 MEQ/1,000 ML BAG 250 MEQ IV (07:50)
[2023-07-31 11:55] VITALS: BP 114/71; PULSE 96; RESP 16; TEMP 36.5; O2SAT 98
== END 2023-08-02 23:59 | disposition home or self-care (01) ==
PROVIDERS: Internal Medicine; Nurse Practitioner Family; PCP Emergency Medicine; Visit Provider Internal Medicine Medical Oncology
DX: E87.6 Hypokalemia; Z53.9 Procedure and treatment not carried out, unspecified reason
CPT/HCPCS: 36415; 71260; 74177; 80053; 82378; 85025; 86301; 96360; 96365; 96366; 96367; 96375; J1100; J2405; J7040; Q9967